=== PATIENT | female | born 1940 | race Caucasian/White ===

== ENCOUNTER 2017-12-12 17:05 | Inpatient (IN) | payer MEDICARE, OTHER ==
[2017-12-12] MEDS ORDERED: SODIUM CHLORIDE 0.9% 1,000 ML IV STA ×2 (17:29)
[2017-12-12 17:44] LABS: HCT 40.9 % (34.0-46.0); HGB 13.8 gm/dL (11.4-16.0); MCH 29.8 pg (25.0-35.0); MCHC 33.7 g/dL (31.0-37.0); MCV 88.3 fL (80.0-100.0); RBC 4.63 m/uL (3.80-5.40); RDW 13.1 % (11.5-15.5); WBC 10.6 k/uL (3.8-10.6)
[2017-12-12 17:45] LABS: Basophils % (A) 0 %; Eosinophils # (A) 0.1 k/uL (0-0.7); Eosinophils % (A) 1 %; Lymphocytes # (A) 1.5 k/uL (1.0-4.8); Lymphocytes % (A) 14 %; Mean Platelet Volume 6.5; Monocytes # (A) 0.7 k/uL (0-1.0); Monocytes % (A) 7 %; Neutrophils # (A) 8.1 k/uL (1.3-7.7); Neutrophils % (A) 77 %; Platelet Count 204 k/uL (150-450)
[2017-12-12 17:55] LABS: ALT 14 U/L (9-52); AST 11 U/L (14-36); Albumin 3.5 g/dL (3.5-5.0); Alkaline Phosphatase 85 U/L (38-126); Anion Gap 9 mmol/L; Blood Urea Nitrogen 20 mg/dL (7-17); Calcium 9.6 mg/dL (8.4-10.2); Carbon Dioxide 26 mmol/L (22-30); Chloride 103 mmol/L (98-107); Glucose 120 mg/dL (74-99); Potassium 4.6 mmol/L (3.5-5.1); Sodium 138 mmol/L (137-145); Total Bilirubin 0.8 mg/dL (0.2-1.3); Total Protein 6.1 g/dL (6.3-8.2)
[2017-12-12 18:09] LABS: Creatine Kinase 91 U/L (30-135)
[2017-12-12 18:23] LABS: Troponin I <0.012 ng/mL (0.000-0.034)
[2017-12-12 18:26] LABS: Partial Thromboplastin Time 33.9 sec (22.0-30.0)
--- NOTE | 2017-12-12 18:27 | CT ---
EXAMINATION TYPE: CT brain wo con for TPA DATE OF EXAM: 12/12/2017 COMPARISON: 01/01/2015 HISTORY: Neuro deficits CT DLP: mGycm Automated exposure control for dose reduction was used. FINDINGS: There is hypodensity in the left temporal lobe consistent with encephalomalacia. There is surgical cl ip in the region of left middle cerebral artery. There is left temporal craniotomy defect. There is n o midline shift. There is no sign of intracranial hemorrhage. 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 NO ACUTE I NTRACRANIAL ABNORMALITY. SPHENOID SINUSITIS NOTED. CEREBRAL ATROPHY. OLD SMALL RIGHT POSTERIOR FRONTA L LOBE CORTICAL INFARCT.
--- NOTE | 2017-12-12 18:56 | CT ---
EXAMINATION TYPE: CT angio head neck DATE OF EXAM: 12/12/2017 HISTORY: Unresponsive COMPARISON: None CT DLP: mGycm. Automated Exposure Control for Dose Reduction was Utilized. TECHNIQUE: CTA scan of the neck is performed , patient injected with 100 mL of , Isovue axial images are obtained, coronal and sagittal reformatted images are reviewed. Three-D reconstructed images are created on an independent workstation and reviewed. FINDINGS: There is normal branching pattern of the great vessels. There is arterial flow in the vertebral arter ies. Left vertebral artery is small. Basilar artery fills from the right side. There is some plaque f ormation at the right carotid artery bifurcation and close to 50% stenosis in the proximal right inte rnal carotid artery. There is mild plaque formation on the left side and less than 15% narrowing of t he proximal left internal carotid artery. There is no evidence of carotid or vertebral artery aneurysm or dissection. There is a large surgical clip in the mid left middle cerebral artery. There is contrast opacificatio n of the anterior and posterior cerebral arteries. There is arterial flow in the vertebrobasilar rosalie ry system. There is arterial flow in both middle cerebral arteries. There is normal contrast opacific ation of the venous sinuses. I see no evidence of sinus thrombosis. There is no evidence of intracran ial aneurysm or neovascularity. IMPRESSION: There is some plaque formation and close to 50% stenosis in the proximal right internal carotid arter y. Minimal plaque at the origin left internal carotid artery. Previous intracranial surgery. No evidence of intracranial aneurysm. No significant stenosis seen.
--- NOTE | 2017-12-12 18:57 | XR ---
EXAMINATION TYPE: XR chest 2V DATE OF EXAM: 12/12/2017 COMPARISON: 12/25/1714 HISTORY: Weakness TECHNIQUE: Frontal and lateral views of the chest are obtained. FINDINGS: There is no heart failure nor confluent pneumonic infiltrate. Thoracic aorta is atheromato us. Costophrenic angles are clear. There are old calcified granulomata. Bones are osteopenic. IMPRESSION: No active cardiopulmonary disease. No change.
[2017-12-12] MEDS ORDERED: IBUPROFEN 600 MG TAB PO STA (19:11)
[2017-12-12] MEDS ORDERED: ACETAMINOPHEN TAB 500 MG TAB PO STA (19:11)
--- NOTE | 2017-12-12 19:11 | ED ---
Neuro HPI - General Chief Complaint: Neuro Symptoms/Deficit Stated Complaint: Poss Stroke Time Seen by Provider: 12/12/17 17:21 Source: family, RN notes reviewed, old records reviewed Mode of arrival: EMS Limitations: language barrier, altered mental status, physical limitation - History of Present Illness Is the patient presenting with stroke symptoms?: Yes Last Known Well Date: 12/11/17 -: days(s) (1) Location: speech, right face, dysarthria, right arm, altered History of same: Yes Place: home Quality: weak, constant Improves With: none On Anticoagulants: Yes Context: sudden onset Associated Symptoms: confusion, fever/chills - Related Data Home Medications: Home Medications Medication Instructions Recorded Confirmed Gabapentin [Neurontin] 300 mg PO DAILY 04/20/14 12/12/17 Keppra(Levetiracetam)100mg/Ml Soln 500 mg PO BID 04/20/14 12/12/17 Labetalol HCl [Trandate] 200 mg PO DAILY 04/20/14 12/12/17 busPIRone HCl [Buspar] 5 mg PO BID 01/01/15 12/12/17 hydrALAZINE HCL [Apresoline] 50 mg PO DAILY 01/02/15 12/12/17 traMADol HCL [Ultram] 50 mg PO DAILY PRN 12/12/17 12/12/17 Previous Rx's Medication Instructions Recorded Diazepam [Valium] 2 mg PO Q6H PRN #20 tab 01/04/15 Allergies/Adverse Reactions: Allergies Allergy/AdvReac Type Severity Reaction Status Date / Time No Known Allergies Allergy Verified 12/12/17 17:46 Review of Systems ROS Statement: Those systems with pertinent positive or pertinent negative responses have been documented in the HPI. ROS Other: All systems not noted in ROS Statement are negative. General Exam Limitations: language barrier, physical limitation Stroke MDM - Lab Data Result diagrams: 12/12/17 17:15 12/12/17 17:15 Lab Results 12/12/17 12/12/17 12/12/17 Range/Units 17:15 17:15 17:15 WBC 10.6 (3.8-10.6) k/uL RBC 4.63 (3.80-5.40) m/uL Hgb 13.8 (11.4-16.0) gm/dL Hct 40.9 (34.0-46.0) % MCV 88.3 (80.0-100.0) fL MCH 29.8 (25.0-35.0) pg MCHC 33.7 (31.0-37.0) g/dL RDW 13.1 (11.5-15.5) % Plt Count 204 (150-450) k/uL Neutrophils % 77 % Lymphocytes % 14 % Monocytes % 7 % Eosinophils % 1 % Basophils % 0 % Neutrophils # 8.1 H (1.3-7.7) k/uL Lymphocytes # 1.5 (1.0-4.8) k/uL Monocytes # 0.7 (0-1.0) k/uL Eosinophils # 0.1 (0-0.7) k/uL Basophils # 0.0 (0-0.2) k/uL PT (9.0-12.0) sec INR (<1.2) APTT (22.0-30.0) sec Sodium 138 (137-145) mmol/L Potassium 4.6 (3.5-5.1) mmol/L Chloride 103 (98-107) mmol/L Carbon Dioxide 26 (22-30) mmol/L Anion Gap 9 mmol/L BUN 20 H (7-17) mg/dL Creatinine 0.63 (0.52-1.04) mg/dL Est GFR (CKD-EPI)AfAm >90 (>60 ml/min/1.73 sqM) Est GFR (CKD-EPI)NonAf 87 (>60 ml/min/1.73 sqM) Glucose 120 H (74-99) mg/dL Calcium 9.6 (8.4-10.2) mg/dL Total Bilirubin 0.8 (0.2-1.3) mg/dL AST 11 L (14-36) U/L ALT 14 (9-52) U/L Alkaline Phosphatase 85 (38-126) U/L Total Creatine Kinase 91 (30-135) U/L CK-MB (CK-2) 1.0 (0.0-2.4) ng/mL CK-MB (CK-2) Rel Index 1.1 Troponin I <0.012 (0.000-0.034) ng/mL Total Protein 6.1 L (6.3-8.2) g/dL Albumin 3.5 (3.5-5.0) g/dL Urine Color Urine Appearance (Clear) Urine pH (5.0-8.0) Ur Specific [place] (1.001-1.035) Urine Protein (Negative) Urine Glucose (UA) (Negative) Urine Ketones (Negative) Urine Blood (Negative) Urine Nitrite (Negative) Urine Bilirubin (Negative) Urine Urobilinogen (<2.0) mg/dL Ur Leukocyte Esterase (Negative) Urine RBC (0-5) /hpf Urine WBC (0-5) /hpf Ur Squamous Epith Cells (0-4) /hpf Urine Bacteria (None) /hpf Urine Mucus (None) /hpf 12/12/17 12/12/17 Range/Units 17:15 19:53 WBC (3.8-10.6) k/uL RBC (3.80-5.40) m/uL Hgb (11.4-16.0) gm/dL Hct (34.0-46.0) % MCV (80.0-100.0) fL MCH (25.0-35.0) pg MCHC (31.0-37.0) g/dL RDW (11.5-15.5) % Plt Count (150-450) k/uL Neutrophils % % Lymphocytes % % Monocytes % % Eosinophils % % Basophils % % Neutrophils # (1.3-7.7) k/uL Lymphocytes # (1.0-4.8) k/uL Monocytes # (0-1.0) k/uL Eosinophils # (0-0.7) k/uL Basophils # (0-0.2) k/uL PT 10.0 (9.0-12.0) sec INR 1.0 (<1.2) APTT 33.9 H (22.0-30.0) sec Sodium (137-145) mmol/L Potassium (3.5-5.1) mmol/L Chloride (98-107) mmol/L Carbon Dioxide (22-30) mmol/L Anion Gap mmol/L BUN (7-17) mg/dL Creatinine (0.52-1.04) mg/dL Est GFR (CKD-EPI)AfAm (>60 ml/min/1.73 sqM) Est GFR (CKD-EPI)NonAf (>60 ml/min/1.73 sqM) Glucose (74-99) mg/dL Calcium (8.4-10.2) mg/dL Total Bilirubin (0.2-1.3) mg/dL AST (14-36) U/L ALT (9-52) U/L Alkaline Phosphatase (38-126) U/L Total Creatine Kinase (30-135) U/L CK-MB (CK-2) (0.0-2.4) ng/mL CK-MB (CK-2) Rel Index Troponin I (0.000-0.034) ng/mL Total Protein (6.3-8.2) g/dL Albumin (3.5-5.0) g/dL Urine Color Yellow Urine Appearance Clear (Clear) Urine pH 6.5 (5.0-8.0) Ur Specific [place] >1.050 H (1.001-1.035) Urine Protein Negative (Negative) Urine Glucose (UA) Negative (Negative) Urine Ketones Negative (Negative) Urine Blood Trace H (Negative) Urine Nitrite Negative (Negative) Urine Bilirubin Negative (Negative) Urine Urobilinogen <2.0 (<2.0) mg/dL Ur Leukocyte Esterase Moderate H (Negative) Urine RBC 4 (0-5) /hpf Urine WBC 19 H (0-5) /hpf Ur Squamous Epith Cells 8 H (0-4) /hpf Urine Bacteria Rare H (None) /hpf Urine Mucus Rare H (None) /hpf - Thrombolytic Inclusion/Exclusion Thrombolytic Exclusion Criteria: Symptom Onset > 3 Hours - Medical Decision Making 77 female the ER for evaluation, patient presents today for evaluation regards to neurological complaint, worsening CVA with UTI. Patient to be admitted and placed on antibiotics, continued current therapy that she is on for CVA and evaluation by neurology - Radiology Data Radiology results: report reviewed (CT brain CTA had not shows worsening CVA, chest x-rays negative), image reviewed - EKG Data -: EKG Interpreted by Me (EKG shows sinus rhythm rate of 86, IL 234, QRS 146, QTc 466) EKG shows normal: sinus rhythm Past Medical History Past Medical History: CVA/TIA, Hyperlipidemia, Hypertension, Sleep Apnea/CPAP/ BIPAP Additional Past Medical History / Comment(s): brain aneurysm, renal aneurysm, peg tube for difficulty swallowing skull surgery, psoriases, sleep apnes but would'nt use cpap machine,since stroke 8-12-14 not ambulatory, was rt side dominate but HAD learned to eat with lt hand, unable to write and has'nt read since stroke. speech garbled if trying to make a sentence few single words come out ok. was recent cat scratch on lt arm.UNABLE TO OBTAIN INFO FOR DEPRESSION RISK SCREEN FROM PT. History of Any Multi-Drug Resistant Organisms: MRSA Date of last positivie culture/infection: 2013 MDRO Source:: blood Past Surgical History: Adenoidectomy, Cholecystectomy, Hysterectomy, Tonsillectomy Additional Past Surgical History / Comment(s): renal bypass d/t renal aneurysm, brain anuerysm-clip/coil in place. Past Anesthesia/Blood Transfusion Reactions: No Reported Reaction Additional Past Anesthesia/Blood Transfusion Reaction / Comment(s): clausterphobia Past Psychological History: No Psychological Hx Reported Smoking Status: Former smoker - Past Family History Father Family Medical History: Cancer Additional Family Medical History / Comment(s): from esophageal cancer age 46 Mother Family Medical History: Congestive Heart Failure (CHF) Additional Family Medical History / Comment(s): at age 78 from chf Course Vital Signs 12/12/17 12/12/17 12/12/17 17:10 18:10 18:17 Temperature 100.0 F H 99.9 F H Pulse Rate 85 80 81 Respiratory 22 20 18 Rate Blood Pressure 132/80 138/60 142/65 O2 Sat by Pulse 97 96 97 Oximetry 12/12/17 12/12/17 19:10 20:10 Temperature 100.2 F H 97.1 F L Pulse Rate 80 81 Respiratory 18 18 Rate Blood Pressure 147/70 120/57 O2 Sat by Pulse 98 97 Oximetry - Reevaluation(s) Reevaluation #1: 12/12/17 20:42 The patient has no improvement in symptoms, no worsening of symptoms Reevaluation #2: 12/12/17 20:42 Medical records reviewed Reevaluation #3: 12/12/17 20:51 Patient is not a TPA candidate secondary to onset of symptoms being sometime last night Disposition Clinical Impression: Cerebrovascular accident, Altered mental status, UTI (urinary tract infection) Disposition: ADMITTED IP TO THIS HOSP Condition: Fair Is patient prescribed a controlled substance at d/c from ED?: No Referrals: Aki Marin MD [Primary Care Provider] - 1-2 days
[2017-12-12] MEDS ORDERED: IBUPROFEN IV 800 MG in SODIUM CHLORIDE 0.9% 250 ML IV ONE (19:34)
[2017-12-12] MEDS ORDERED: ACETAMINOPHEN IV (For NPO) 1,000 MG in EMPTY BAG 1 BAG IVPB STA (19:34)
[2017-12-12 20:13] LABS: Appearance,Urine Clear (Clear); Bacteria,Urine Rare /hpf; Bilirubin,Urine Negative (Negative); Blood,Urine Trace (Negative); Color,Urine Yellow; Glucose,Urine (UA) Negative (Negative); Ketones,Urine Negative (Negative); Leukocyte Esterase,Urine Moderate (Negative); Mucus,Urine Rare /hpf; Nitrite,Urine Negative (Negative); PH, Urine 6.5 (5.0-8.0); Protein,Urine Negative (Negative); RBC,Urine 4 /hpf (0-5); Squamous Epithelial Cell,Urine 8 /hpf (0-4); Urobilinogen,Urine <2.0 mg/dL (<2.0); WBC,Urine 19 /hpf (0-5)
[2017-12-12 20:28] LABS: Specific Gravity,Urine >1.050 (1.001-1.035)
[2017-12-12] MEDS ORDERED: cefTRIAXone 2,000 MG in SODIUM CHLORIDE 0.9% 100 ML IVPB STA (20:38)
[2017-12-12 22:28] VITALS: BMI 39.6
[2017-12-12] MEDS: SODIUM CHLORIDE 0.9% 1,000 ML IV SCH (23:00)
[2017-12-13] MEDS: SODIUM CHLORIDE 0.9% 1,000 ML IV SCH ×2 (06:20→17:11)
[2017-12-13] MEDS ORDERED: DIAZEPAM 2 MG TAB PO PRN (11:59)
[2017-12-13] MEDS ORDERED: hydrALAZINE HCL 25 MG TAB PO SCH (12:00)
[2017-12-13] MEDS ORDERED: LABETALOL 200 MG TAB PO SCH (12:00)
[2017-12-13] MEDS: GABAPENTIN 300 MG CAP PO SCH (13:43)
[2017-12-13 15:48] LABS: Cholesterol 163 mg/dL (<200); HDL Cholesterol 37 mg/dL (40-60); LDL Cholesterol,Calculated 110 mg/dL (0-99); Triglycerides 82 mg/dL (<150)
[2017-12-13] MEDS ORDERED: LACTULOSE 20 GM/30 ML CUP PO PRN (17:15)
[2017-12-13] MEDS ORDERED: CALCIUM CARBONATE 500 MG CHEWABLE PO PRN (17:15)
[2017-12-13] MEDS ORDERED: ALPRAZolam 0.25 MG TAB PO PRN (17:15)
[2017-12-13] MEDS ORDERED: ONDANSETRON 4 MG/2 ML VIAL IVP PRN (17:15)
[2017-12-13] MEDS ORDERED: ACETAMINOPHEN TAB 325 MG TAB PO PRN (17:15)
[2017-12-13] MEDS ORDERED: MELATONIN 3 MG TABLET PO PRN (17:15)
[2017-12-13] MEDS ORDERED: MAGNESIUM HYDROXIDE 2,400 MG/10 ML CUP PO PRN (17:15)
--- NOTE | 2017-12-13 18:32 | P.CNNES ---
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 History is obtained from the chart and from the patient's family who are at bedside. Patient's daughter reports that normally her mother is unable to stand or walk and there is a significant aphasia since the aneurysm surgery. She seems to understand some things and she lives at home with her and numerous caregivers.'s today her noted that she was slipped more lethargic than usual and so this was the reason EMS was called. She also had a fever. In the emergency room she had a CAT scan of the brain which showed a large old left MCA infarct as well as some sphenoid sinusitis cerebral atrophy and old small right frontal lobe infarct. She also had a CT angiogram which showed about 50% stenosis in the right ICA Review of Systems ROS unobtainable: due to mental status Past Medical History Past Medical History: CVA/TIA, Hyperlipidemia, Hypertension, Sleep Apnea/CPAP/ BIPAP Additional Past Medical History / Comment(s): brain aneurysm, renal aneurysm, skull surgery, psoriases, sleep apnes but would'nt use cpap machine,since stroke 10-17-13 not ambulatory, was rt side dominate but HAD learned to eat with lt hand, unable to write and has'nt read since stroke. speech garbled if trying to make a sentence few single words come out ok. History of Any Multi-Drug Resistant Organisms: MRSA Date of last positivie culture/infection: 2013 MDRO Source:: blood Past Surgical History: Adenoidectomy, Cholecystectomy, Hysterectomy, Tonsillectomy Additional Past Surgical History / Comment(s): renal bypass d/t renal aneurysm, brain anuerysm skull surgery-clip/coil in place. Past Anesthesia/Blood Transfusion Reactions: No Reported Reaction Additional Past Anesthesia/Blood Transfusion Reaction / Comment(s): clausterphobia Past Psychological History: No Psychological Hx Reported Smoking Status: Former smoker Past Alcohol Use History: None Reported Additional Past Alcohol Use History / Comment(s): atarted smoking age 19 smoked < 1 ppd, quit 2006 Past Drug Use History: None Reported - Past Family History Father Family Medical History: Cancer Additional Family Medical History / Comment(s): from esophageal cancer age 46 Mother Family Medical History: Congestive Heart Failure (CHF) Additional Family Medical History / Comment(s): at age 78 from chf Medications and Allergies Home Medications Medication Instructions Recorded Confirmed Type Gabapentin [Neurontin] 300 mg PO DAILY 04/20/14 12/12/17 History Keppra(Levetiracetam)100mg/Ml Soln 500 mg PO BID 04/20/14 12/12/17 History Labetalol HCl [Trandate] 200 mg PO DAILY 04/20/14 12/12/17 History busPIRone HCl [Buspar] 5 mg PO BID 01/01/15 12/12/17 History hydrALAZINE HCL [Apresoline] 25 mg PO DAILY 01/02/15 12/12/17 History Diazepam [Valium] 2 mg PO Q6H PRN #20 tab 01/04/15 12/12/17 Rx Allergies Allergy/AdvReac Type Severity Reaction Status Date / Time No Known Allergies Allergy Verified 12/12/17 17:46 Physical Examination - Vital Signs Vital Signs: Vital Signs Temp Pulse Pulse Resp BP BP Pulse Ox 12/13/17 16:00 97.3 F L 73 16 120/70 96 12/13/17 12:00 97.6 F 67 18 124/73 97 12/13/17 08:00 97.5 F L 64 16 123/74 98 12/13/17 04:00 97.1 F L 67 18 93/53 98 12/12/17 23:39 97.9 F 67 18 122/68 94 L 12/12/17 22:45 18 12/12/17 21:10 98.5 F 85 16 108/55 94 L 12/12/17 21:05 98.2 F 70 16 116/76 97 12/12/17 20:10 97.1 F L 81 18 120/57 97 12/12/17 19:10 100.2 F H 80 18 147/70 98 12/12/17 18:17 99.9 F H 81 18 142/65 97 Intake and Output 12/13/17 12/13/17 12/13/17 06:59 14:59 22:59 Intake Total 700 240 100 Balance 700 240 100 Intake: IV 700 Sodium Chloride 0.9% 1, 700 000 ml @ 100 mls/hr IV . Q10H [facility] Rx#:[id number] Oral 240 100 Other: Voiding Method Diaper Diaper Diaper # Voids 2 1 Weight 90 kg - EENT EENT: PERRL, hearing intact, vision intact - Respiratory Respiratory: lungs clear - Cardiovascular Cardiovascular: regular rate - Neurologic Neurologic examination: Mental status: She was awake she was alert and she said a few monosyllable words and she recognized her daughters and her . She did have significant expressive aphasia X Cranial nerve examination pupils were 2 mm and equal was no ptosis no nystagmus no facial asymmetry next Motor examination: She had a dense right hemiplegia Sensory examination was difficult to test Results - Laboratory Findings CBC and BMP: 12/12/17 17:15 12/12/17 17:15 Abnormal Lab Findings: Abnormal Labs 12/12/17 12/12/17 12/12/17 17:15 17:15 17:15 Neutrophils # 8.1 H APTT 33.9 H BUN 20 H Glucose 120 H AST 11 L Total Protein 6.1 L LDL Cholesterol, Calc HDL Cholesterol Ur Specific [place] Urine Blood Ur Leukocyte Esterase Urine WBC Ur Squamous Epith Cells Urine Bacteria Urine Mucus 12/12/17 12/12/17 17:15 19:53 Neutrophils # APTT BUN Glucose AST Total Protein LDL Cholesterol, Calc 110 H HDL Cholesterol 37 L Ur Specific [place] >1.050 H Urine Blood Trace H Ur Leukocyte Esterase Moderate H Urine WBC 19 H Ur Squamous Epith Cells 8 H Urine Bacteria Rare H Urine Mucus Rare H Assessment and Plan (1) History of cerebral aneurysm repair Current Visit: Yes Status: Chronic SNOMED Code(s): 239031537 (2) 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 The patient is currently alert and almost back to her baseline according to her family. His been admitted with UTI which is likely caused her encephalopathy and altered mental status. She is currently doing much better. There is no indication of a new infarct. Recommend check Keppra level, and because of history of seizure disorder we will also do an EEG. Also we'll check an echocardiogram
--- NOTE | 2017-12-13 18:47 | HP ---
HISTORY AND PHYSICAL DATE OF ADMISSION: 12/12/2017 DATE OF SERVICE: 12/13/2017 PRESENTING COMPLAINT: Slurred speech. HISTORY OF PRESENTING COMPLAINT: This is a 77-year-old patient who follows with visiting physician Dr. Marin. History is obtained from the daughter at the bedside. Chronic stable medical conditions include hypertension, hyperlipidemia, chronic left subdural cerebral hematoma. The patient has had a prior stroke with baseline weakness of the right arm and right leg. The patient has gotten use to eating with the left arm and can say a few words. Patient yesterday was noted to become more lethargic and less responsive. She presented to the ER. CT scan of the brain in the ER showed a large old left middle cerebral infarct that has progressed compared to the old one. Patient was not felt to be a candidate for any acute intervention, and the patient was admitted. Compared to yesterday, patient is doing much better, per her daughter, who feels patient is quite nearly back to her baseline. Patient did say hello to me and is moving her left arm. Patient has got a contracture of the right arm. REVIEW OF SYSTEMS: Review of systems cannot be done, as the patient's speech is rather limited. PAST MEDICAL HISTORY: 1. Stroke. 2. Hyperlipidemia. 3. Hypertension. 4. Obstructive sleep apnea. Does not use a CPAP machine. 5. Brain aneurysm. 6. Renal aneurysm. 7. Skull surgery. 8. Psoriasis. 9. Stroke in October 2014. 10.Chronic dysarthria. PAST SURGICAL HISTORY: 1. Adenoidectomy. 2. Cholecystectomy. 3. Hysterectomy. 4. Tonsillectomy. 5. Renal bypass due to renal aneurysm. 6. Brain aneurysm, skull surgery and clip and coil in place. SOCIAL HISTORY: Patient smoked less than a pack a day for 40 years, stopped in 2006. . No alcohol. FAMILY HISTORY: Esophageal cancer. HOME MEDICATIONS: 1. Hydralazine 25 mg a day. 2. BuSpar 5 mg p.o. b.i.d. 3. Labetalol 200 mg p.o. daily. 4. Keppra 500 mg b.i.d. 5. Neurontin 300 mg p.o. daily. 6. Valium 2 mg q.6 p.r.n. ALLERGIES: NONE. PHYSICAL EXAMINATION: VITAL SIGNS ON PRESENTATION: Temperature 100.2, pulse 80, respiration 18, blood pressure 147/70, pulse ox 98% on 2 L. GENERAL APPEARANCE: Well built; BMI 37.5. Lying in bed, tired but awake. EYES: Pupils equal. Conjunctivae normal. HEENT: External appearance of nose and ears normal. Oral cavity normal. NECK: JVD unable to assess. Mass not palpable. RESPIRATORY: Effort normal. LUNGS: Diminished breath sounds. CARDIOVASCULAR: First and second sounds normal. No edema. ABDOMEN: Soft, nontender. Liver and spleen not palpable. LYMPHATIC: No lymph node palpable in neck or axillae. PSYCHIATRY: Patient can only answer some simple questions by saying a word here and there. NEUROLOGICAL: Pupils equal. No facial asymmetry. The patient can speak a few words. Patient has contracture in the right upper extremity and minimal power in the right lower extremity. INVESTIGATIONS: White count 10.6, hemoglobin 13.8, potassium 4.6, BUN 20, creatinine 0.63. LDL is 110. UA positive for leukocyte esterase, WBC. CT scan of the brain showing large old left middle cerebral artery infarct that has progressed compared to the old CT scan. CT angio showing 50% stenosis in the proximal right internal carotid artery, minimal plaque noted in the left internal carotid artery. Chest x-ray film, personally reviewed by me, shows some unfolding of the aorta; expiratory film. EKG tracing, personally reviewed by me, shows left bundle branch block. ASSESSMENT: 1. Acute stroke in the left middle cerebral artery area in a right-handed patient with a prior stroke in the same area, likely ischemic in nature, with some clinical neurological improvement. 2. Obesity; body mass index of 37.5. 3. Chronic right hemiparesis and chronic dysarthria. 4. Hyperlipidemia. 5. Essential hypertension. 6. Obstructive sleep apnea. Does not use a CPAP machine. 7. Acute urinary tract infection, probably cystitis. PLAN: Patient will be put on aspirin. Home medications are resumed. Patient has an interesting mix of antihypertensive, hydralazine and labetalol, both being once a day. Will actually discontinue the labral and hydralazine and use Lopressor. Will also put the patient on lipid-lowering medication. Care was discussed with the daughter at the bedside. Carotid Doppler and 2D echo will be done. PT/OT is consulted. Aspiration precautions will be done. Lovenox for DVT prophylaxis. MMODL / IJN: [id number] /
[2017-12-13] MEDS: CEPHALEXIN 250 MG CAP PO SCH ×2 (18:55→22:27)
[2017-12-13] MEDS: ENOXAPARIN 40 MG/0.4 ML SYRINGE SQ SCH (18:56)
[2017-12-13] MEDS: ATORVASTATIN 40 MG TAB PO SCH (22:26)
[2017-12-13] MEDS: levETIRAcetam ORAL SOLN 500 MG/5 ML CUP PO SCH (22:27)
[2017-12-13] MEDS: busPIRone HCl 5 MG TAB PO SCH (22:27)
[2017-12-13] MEDS: LISINOPRIL-HCTZ 20-12.5 MG 1 EACH TAB PO SCH (22:27)
[2017-12-14] MEDS: SODIUM CHLORIDE 0.9% 1,000 ML IV SCH ×3 (04:01→22:13)
[2017-12-14] MEDS: ENOXAPARIN 40 MG/0.4 ML SYRINGE SQ SCH (08:57)
[2017-12-14] MEDS: levETIRAcetam ORAL SOLN 500 MG/5 ML CUP PO SCH ×2 (09:11→21:21)
[2017-12-14] MEDS: LISINOPRIL-HCTZ 20-12.5 MG 1 EACH TAB PO SCH ×2 (09:11→21:21)
[2017-12-14] MEDS: CEPHALEXIN 250 MG CAP PO SCH ×3 (09:11→21:21)
[2017-12-14] MEDS: busPIRone HCl 5 MG TAB PO SCH ×2 (09:11→21:21)
[2017-12-14] MEDS: GABAPENTIN 300 MG CAP PO SCH (09:11)
--- NOTE | 2017-12-14 12:14 | ECHOF ---
Referral Reason:History of stroke MEASUREMENTS -------- HEIGHT: 152.4 cm WEIGHT: 95.7 kg BP: 112/57 IVSd: 1.1 cm (0.6 - 1.1) LVIDd: 4.1 cm (3.9 - 5.3) LVPWd: 1.0 cm (0.6 - 1.1) IVSs: 1.2 cm LVIDs: 3.0 cm LVPWs: 1.0 cm Ao Diam: 3.0 cm (2.0 - 3.7) LA Diam: 4.0 cm (2.7 - 3.8) MV E Chema: 1.01 m/s MV DecT: 213 ms MV A Chema: 1.05 m/s MV E/A Ratio: 0.97 RAP: 5.00 mmHg RVSP: 11.24 mmHg FINDINGS -------- Sinus rhythm. This was a techncally difficult study with suboptimal views, , Lumason utilized for enhancement of im ages. The left ventricular size is normal. There is mild concentric left ventricular hypertrophy. Overa ll left ventricular systolic function is normal with, an EF between 55 - 60 %. The right ventricle is normal in size. The left atrial size is normal. The right atrial size is normal. 5.0mg OF Lumason UTLIZED: 2 OR MORE WALL SEGMENTS NOT VISUALIZED. The aortic valve was not well visualized. Mild mitral annular calcification present. No mitral regurgitation. Mild tricuspid regurgitation present. There is no evidence of pulmonary hypertension. The right v entricular systolic pressure, as measured by Doppler, is 11.24mmHg. The pulmonic valve was not well visualized. The aortic root size is normal. There is no pericardial effusion. CONCLUSIONS -------- 1. This was a techncally difficult study with suboptimal views, , Lumason utilized for enhancement of images. 2. The left ventricular size is normal. 3. There is mild concentric left ventricular hypertrophy. 4. Overall left ventricular systolic function is normal with, an EF between 55 - 60 %. 5. The right ventricle is normal in size. 6. The left atrial size is normal. 7. The right atrial size is normal. 8. 5.0mg OF Lumason UTLIZED: 2 OR MORE WALL SEGMENTS NOT VISUALIZED. 9. The aortic valve was not well visualized. 10. Mild mitral annular calcification present. 11. No mitral regurgitation. 12. Mild tricuspid regurgitation present. 13. There is no evidence of pulmonary hypertension. 14. The right ventricular systolic pressure, as measured by Doppler, is 11.24mmHg. 15. The pulmonic valve was not well visualized. 16. The aortic root size is normal. 17. There is no pericardial effusion. HEART NURSE: Risa Tovar RDCS
[2017-12-14] MEDS: ATORVASTATIN 40 MG TAB PO SCH (21:21)
--- NOTE | 2017-12-14 21:49 | P.PN ---
Subjective Progress Note Date: 12/14/17 The patient is a 77-year-old woman who was admitted to the hospital with episode of decreased responsiveness. The patient is laying in bed in no acute distress. She does have expressive a aphasia. She didn't communicate that she wanted the TV off. She has a dense right hemiplegia which is unchanged. She had an echocardiogram which showed an ejection fraction of 55-60%. She had a CT angiogram of the brain which showed previous aneurysm surgery with no new aneurysm seen. There was also suggestion of approximately 50% stenosis of right ICA. The patient has a history of renal aneurysms. She is being treated for UTI. The patient has not presented with any signs of a new stroke. Her CAT scan of the brain showed an old small right frontal infarct. There was also evidence of an old large left MCA infarct with encephalomalacia. Objective - Vital Signs Vital signs: Vital Signs Temp 98.7 F 12/14/17 16:00 Pulse 78 12/14/17 16:00 Resp 14 12/14/17 16:00 BP 133/70 12/14/17 16:00 Pulse Ox 94 L 12/14/17 16:00 Intake & Output 12/14/17 12/14/17 12/15/17 06:59 18:59 06:59 Intake Total 1000 Balance 1000 Weight 96 kg Intake: Intake, IV Titration 1000 Amount Sodium Chloride 0.9% 1, 1000 000 ml @ 100 mls/hr IV . Q10H [facility] Rx#:[id number] Other: Voiding Method Diaper Diaper # Voids 1 2 - Constitutional General appearance: Present: obese - EENT ENT: Present: hearing grossly normal - Respiratory Respiratory: bilateral: CTA - Cardiovascular Rhythm: regular - Neurologic Neurologic Comment(s): Neurologic examination: Mental status: The patient was awake she was alert she has expressive aphasia Cranial nerve examination: Pulls were 2 mm and equal reactive Motor examination: Right spastic hemiplegia - Labs CBC & Chem 7: 12/12/17 17:15 12/12/17 17:15 Labs: Microbiology - Last 24 Hours (Table) 12/12/17 19:53 Urine Culture - Preliminary Urine,Catheterized Gram Neg Bacilli Assessment and Plan (1) History of cerebral aneurysm repair Current Visit: Yes Status: Chronic SNOMED Code(s): 592124020 (2) 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 She has been admitted with UTI . There is no evidence of a new stroke. The patient seems to be improving as she is being treated for UTI. The patient also has a history of renal aneurysm. There is no evidence on CTA of a new intracranial aneurysm
--- NOTE | 2017-12-14 21:53 | PN ---
PROGRESS NOTE DATE OF SERVICE: 12/14/17. PRESENTING COMPLAINT: Slurred speech. INTERVAL HISTORY: This is a patient who presented with acute stroke. Doing much better. The patient's daughter and another daughter and are present. Patient's speech is back to baseline. The patient is far more awake than yesterday. Answering questions. REVIEW OF SYSTEMS: Review of systems cannot be done as patient is really not able to speak well. CURRENT MEDICATIONS: Reviewed. The patient cannot take calcium channel blockers as per previous neurology, but Dr. Dumont will make a final determination. PHYSICAL EXAMINATION: Temperature 98.7, pulse 70, respirations 14, blood pressure 133/70, pulse ox 94 percent on room air. GENERAL APPEARANCE: Lying in bed more awake. EYES: Pupils equal. Conjunctivae normal. HEENT: External appearance of nose and ears normal. Oral cavity normal. NECK: JVD unable to assess. Mass not palpable. RESPIRATORY: Effort normal. Lungs, diminished breath sounds. CARDIOVASCULAR: 1st and 2nd sounds normal. No edema. ABDOMEN: Soft, nontender. Liver and spleen not palpable. NEUROLOGICAL: Speech is slow. Contracture of the right upper extremity. INVESTIGATIONS: No blood work from today. ASSESSMENT: 1. Acute stroke in the left middle cerebral artery in a right-handed patient with a prior stroke in the same area likely ischemic in nature, with the patient nearly reverting back to her baseline. 2. Obesity; BMI 37.5. 3. Chronic right hemiparesis and chronic dysarthria. 4. Hyperlipidemia. 5. Essential hypertension. 6. Obstructive sleep apnea does not use CPAP machine. 7. Acute urinary tract infection, probably cystitis. PLAN: Care was discussed with the family at the bedside. Will let Dr. Dumont decide about the antiplatelet agents. Otherwise, patient should be able to be discharged tomorrow. MMODL / IJN: [id number] /
[2017-12-15 05:04] VITALS: TEMP 97.8
[2017-12-15 09:16] VITALS: BP 121/63; PULSE 94; RESP 16
[2017-12-15] MEDS: levETIRAcetam ORAL SOLN 500 MG/5 ML CUP PO SCH (09:22)
[2017-12-15] MEDS: GABAPENTIN 300 MG CAP PO SCH (09:22)
[2017-12-15] MEDS: CEPHALEXIN 250 MG CAP PO SCH ×2 (09:22→17:39)
[2017-12-15] MEDS: busPIRone HCl 5 MG TAB PO SCH (09:22)
[2017-12-15] MEDS: LISINOPRIL-HCTZ 20-12.5 MG 1 EACH TAB PO SCH (09:22)
--- NOTE | 2017-12-15 22:52 | DS ---
DISCHARGE SUMMARY DATE OF ADMISSION: 12/12/2017 DATE OF DISCHARGE: 12/15/2017 FINAL DIAGNOSES: 1. Acute metabolic encephalopathy from urinary tract infection. 2. There is no stroke per Neurology. 3. Obesity; body mass index 37.5. 4. Chronic right hemipareses and chronic dysarthria. 5. Hyperlipidemia. 6. Essential hypertension. 7. Obstructive sleep apnea. Does not use CPAP machine. 8. Acute urinary tract infection from cystitis from Klebsiella pneumoniae. HOSPITAL COURSE: This patient presented with altered mental status. She was seen by Neurology, who felt the patient had acute metabolic encephalopathy from UTI that resolved. CT scan showed evidence of old stroke and some progression. Patient was back to her baseline. Urine culture did grow Klebsiella pneumoniae. Two-D echocardiogram did not report any thrombus. CT angio of the brain did not show any critical stenosis of the neck. Consultation was from Dr. Mack Moses of Neurology. Today I discussed with the patient's and did discuss the findings of Dr. Vianney Moses from Neurology. PHYSICAL EXAMINATION: Temperature 97.8, pulse 83, respiration 20, blood pressure 121/63, pulse ox 95% on room air. She has chronic right-sided weakness, including contracture of the right arm. The patient at baseline can only speak a few words. DISCHARGE MEDICATIONS: 1. Neurontin 300 mg p.o. daily. 2. Keppra 500 mg p.o. b.i.d. 3. Buspirone 5 mg b.i.d. 4. Valium 2 mg q.6 p.r.n. 5. Keflex 250 mg t.i.d.; 9 capsules. 6. Zestoretic /12.5 one tablet b.i.d. Discontinued medications were Trandate and hydralazine. Follow up with Dr. Mack Moses as needed. Follow up with Visiting Physician Dr. Marin in one week. The patient has private home care. MMODL / IJN: [id number] /
== END 2017-12-15 19:00 | disposition home health service (06) | DRG 689 ==
LOC: EC 17:05 → 6SEL 20:41
PROVIDERS: ADMIT Hospitalist; ATTEND Hospitalist
DX: N30.90 Cystitis, unspecified without hematuria (principal); G93.41 Metabolic encephalopathy; I69.151 Hemiplegia and hemiparesis following nontraumatic intracerebral hemorrhage affecting right dominant side; E66.9 Obesity, unspecified; E78.5 Hyperlipidemia, unspecified; G47.33 Obstructive sleep apnea (adult) (pediatric); Z99.89 Dependence on other enabling machines and devices; I10 Essential (primary) hypertension; J32.3 Chronic sphenoidal sinusitis; Z68.37 Body mass index [BMI] 37.0-37.9, adult; Z79.899 Other long term (current) drug therapy; Z80.0 Family history of malignant neoplasm of digestive organs; Z82.49 Family history of ischemic heart disease and other diseases of the circulatory system; Z86.79 Personal history of other diseases of the circulatory system; Z87.891 Personal history of nicotine dependence; Z90.710 Acquired absence of both cervix and uterus; I69.120 Aphasia following nontraumatic intracerebral hemorrhage; Z86.14 Personal history of Methicillin resistant Staphylococcus aureus infection; Z90.49 Acquired absence of other specified parts of digestive tract; B96.1 Klebsiella pneumoniae [K. pneumoniae] as the cause of diseases classified elsewhere; I69.122 Dysarthria following nontraumatic intracerebral hemorrhage
CPT/HCPCS: 36415; 51701; 70450; 70496; 70498; 71046; 80053; 80061; 80177; 81001; 82550; 82553; 84484; 85025; 85610; 85730; 87077; 87086; 87186; 93005; 93306; 95819; 96361; 96365; 96367; 96368; 99285

== ENCOUNTER 2021-05-02 14:44 | Observation (INO) | payer MEDICARE ==
[2021-05-02] MEDS ORDERED: SODIUM CHLORIDE 0.9% 500 ML 500 ML IV STA (15:25)
[2021-05-02] MEDS ORDERED: GENTAMICIN IVPB SCH (15:30)
[2021-05-02] MEDS ORDERED: SODIUM CHLORIDE 0.9% IVPB SCH (15:30)
[2021-05-02 15:41] LABS: Basophils # (A) 0.1 k/uL (0-0.2); Basophils % (A) 1 %; Eosinophils # (A) 0.3 k/uL (0-0.7); Eosinophils % (A) 3 %; HCT 50.3 % (34.0-46.0); HGB 16.2 gm/dL (11.4-16.0); Lymphocytes # (A) 1.9 k/uL (1.0-4.8); Lymphocytes % (A) 24 %; MCH 31.2 pg (25.0-35.0); MCHC 32.3 g/dL (31.0-37.0); MCV 96.7 fL (80.0-100.0); Mean Platelet Volume 7.6; Monocytes # (A) 0.5 k/uL (0-1.0); Monocytes % (A) 7 %; Neutrophils % (A) 63 %; Platelet Count 225 k/uL (150-450); RDW 12.7 % (11.5-15.5); WBC 7.9 k/uL (3.8-10.6)
[2021-05-02] MEDS ORDERED: GENTAMICIN PER PHARMACY MISCELLANE PRN (15:43)
[2021-05-02] MEDS ORDERED: GENTAMICIN 400 MG in SODIUM CHLORIDE 0.9% 100 ML IVPB ONE (16:00)
[2021-05-02] MEDS ORDERED: GENTAMICIN 80 MG/2 ML (MDV) VIAL ONE (16:15)
[2021-05-02] MEDS ORDERED: SODIUM CHLORIDE 0.9% 100 ML BAG IV ONE (16:15)
--- NOTE | 2021-05-02 16:20 | ED ---
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 Urine cultures revealed a resistant Pseudomonas as the culprit of her uric UTI. She was instructed to come to the emergency department for IV antibiotics. No new symptoms per family members who are present. She does live at home with them. Her last 2 months she does get more aggressive, is refusing eating. However she did seem to be somewhat improving over the last few days. Denies any worsening fevers, chills, abdominal pain, nausea, vomiting. Denies any chest pain. No other acute complaints at this time. - Related Data Home Medications Medication Instructions Recorded Confirmed Gabapentin [Neurontin] 300 mg PO HS 04/20/14 05/02/21 Albuterol Nebulized [Ventolin 2.5 mg INHALATION RT-QID PRN 04/28/21 05/02/21 Nebulized] Betamethasone Dipropionate 1 applic TOPICAL DAILY PRN 04/28/21 05/02/21 [Betamethasone Dipropionate 0.05%] Cholecalciferol [Vitamin D3 (25 50 mcg PO DAILY 04/28/21 05/02/21 Mcg = 1000 Iu)] Nystatin [Nystop] 1 applic TOPICAL BID PRN 04/28/21 05/02/21 Tacrolimus 0.03% Cream 1 applic TOPICAL DAILY PRN 04/28/21 05/02/21 Fluconazole [Diflucan] 150 mg PO DAILY 05/02/21 05/02/21 Previous Rx's Medication Instructions Recorded Cephalexin [Keflex] 500 mg PO Q12HR 1 Days #2 cap 04/28/21 Allergies Allergy/AdvReac Type Severity Reaction Status Date / Time No Known Allergies Allergy Verified 05/02/21 16:43 Review of Systems ROS Statement: Those systems with pertinent positive or pertinent negative responses have been documented in the HPI. ROS Other: All systems not noted in ROS Statement are negative. 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 speech garbled if trying to make a sentence few single words come out ok. History of Any Multi-Drug Resistant Organisms: MRSA Date of last positivie culture/infection: 2013 MDRO Source:: blood Past Surgical History: Adenoidectomy, Cholecystectomy, Hysterectomy, Tonsillectomy Additional Past Surgical History / Comment(s): renal bypass d/t renal aneurysm, brain anuerysm skull surgery-clip/coil in place. Past Anesthesia/Blood Transfusion Reactions: No Reported Reaction Additional Past Anesthesia/Blood Transfusion Reaction / Comment(s): clausterphobia Past Psychological History: No Psychological Hx Reported Smoking Status: Unknown if ever smoked Past Alcohol Use History: None Reported Past Drug Use History: None Reported - Past Family History Father Family Medical History: Cancer Additional Family Medical History / Comment(s): from esophageal cancer age 46 Mother Family Medical History: Congestive Heart Failure (CHF) Additional Family Medical History / Comment(s): at age 78 from chf General Exam - General Exam Comments Initial Comments: General: Appears in no acute distress. HEAD: Normal with no signs of acute head trauma. EYES: PERRLA, EOMI, conjunctiva normal, no discharge. ENT: Hearing grossly intact, normal oropharynx. RESPIRATORY: Clear breath sounds bilaterally. No wheezes, rales, or rhonchi. C/V: Regular rate and rhythm. S1 and S2 auscultated, no edema, peripheral pulses 2+ and intact throughout ABD: Abd is soft, nontender, nondistended EXT: Right-sided paralysis SKIN: No rashes or lesions observed on exposed skin. NEURO: Alert. Oriented to her baseline per family. Right-sided paralysis. Aphasic. All chronic findings from her prior ruptured intracranial aneurysm. Limitations: language barrier, physical limitation Course Vital Signs 05/02/21 05/02/21 14:51 19:03 Temperature 97.7 F Pulse Rate 80 70 Respiratory 18 20 Rate Blood Pressure 149/78 143/76 O2 Sat by Pulse 95 96 Oximetry Medical Decision Making - Medical Decision Making Based on the patient's presentation and physical exam, she is re-presenting for IV antibiotics. I evaluated the patient's urine culture from the which revealed that he grew Pseudomonas which is susceptible only to amikacin, gentamicin, tobramycin. Patient be started on gentamicin at 5 mg/kg daily. We will we obtain basic laboratory studies. Blood cultures will be sent. She'll be given a 500 mL fluid bolus as well as started on maintenance fluids. I disc ussed this with the patient's family and the patient and they were in agreement this plan. Patient will be admitted after laboratory studies. Laboratory studies were relatively unremarkable including a normal lactic acid. I spoke with the admitting physician, Dr. Massey accepted the patient. Patient was therefore admitted in stable condition for IV antibiotics. I consulted infectious disease, Dr. Vyas. - Lab Data Result diagrams: 05/02/21 15:32 05/02/21 16:12 Lab Results 05/02/21 05/02/21 05/02/21 Range/Units 15:32 15:32 16:12 WBC 7.9 (3.8-10.6) k/uL RBC 5.20 (3.80-5.40) m/uL Hgb 16.2 H (11.4-16.0) gm/dL Hct 50.3 H (34.0-46.0) % MCV 96.7 (80.0-100.0) fL MCH 31.2 (25.0-35.0) pg MCHC 32.3 (31.0-37.0) g/dL RDW 12.7 (11.5-15.5) % Plt Count 225 (150-450) k/uL MPV 7.6 Neutrophils % 63 % Lymphocytes % 24 % Monocytes % 7 % Eosinophils % 3 % Basophils % 1 % Neutrophils # 5.0 (1.3-7.7) k/uL Lymphocytes # 1.9 (1.0-4.8) k/uL Monocytes # 0.5 (0-1.0) k/uL Eosinophils # 0.3 (0-0.7) k/uL Basophils # 0.1 (0-0.2) k/uL Sodium 135 L (137-145) mmol/L Potassium 3.9 (3.5-5.1) mmol/L Chloride 101 (98-107) mmol/L Carbon Dioxide 28 (22-30) mmol/L Anion Gap 6 mmol/L BUN 15 (7-17) mg/dL Creatinine 0.54 (0.52-1.04) mg/dL Est GFR (CKD-EPI)AfAm >90 (>60 ml/min/1.73 sqM) Est GFR (CKD-EPI)NonAf 89 (>60 ml/min/1.73 sqM) Glucose 100 H (74-99) mg/dL Plasma Lactic Acid Alberto 1.5 (0.7-2.0) mmol/L Calcium 9.2 (8.4-10.2) mg/dL Total Bilirubin 0.8 (0.2-1.3) mg/dL AST 22 (14-36) U/L ALT 10 (4-34) U/L Alkaline Phosphatase 73 (38-126) U/L Total Protein 6.0 L (6.3-8.2) g/dL Albumin 3.2 L (3.5-5.0) g/dL Disposition Clinical Impression: UTI (urinary tract infection) Disposition: ADMITTED IP TO THIS [facility] Condition: Stable
[2021-05-02 16:38] LABS: ALT 10 U/L (4-34); AST 22 U/L (14-36); African American GFR (CKD) >90 (>60 ml/min/1.73 sqM); Albumin 3.2 g/dL (3.5-5.0); Alkaline Phosphatase 73 U/L (38-126); Anion Gap 6 mmol/L; Blood Urea Nitrogen 15 mg/dL (7-17); Calcium 9.2 mg/dL (8.4-10.2); Carbon Dioxide 28 mmol/L (22-30); Chloride 101 mmol/L (98-107); Glucose 100 mg/dL (74-99); Non-African American GFR(CKD) 89 (>60 ml/min/1.73 sqM); Sodium 135 mmol/L (137-145); Total Bilirubin 0.8 mg/dL (0.2-1.3)
[2021-05-02 16:44] LABS: Potassium 3.9 mmol/L (3.5-5.1)
[2021-05-02] MEDS ORDERED: ACETAMINOPHEN TAB 325 MG TAB PO PRN (16:45)
[2021-05-02] MEDS ORDERED: KETOROLAC 15 MG/ML 1 ML VIAL IVP PRN (16:45)
[2021-05-02] MEDS: SODIUM CHLORIDE 0.9% 1,000 ML IV SCH (17:13)
[2021-05-02] MEDS ORDERED: ALBUTEROL NEBULIZED 2.5 MG/3 ML INHALATION PRN (18:07)
[2021-05-02] MEDS ORDERED: TACROLIMUS 0.03% TOPICAL PRN (18:07)
[2021-05-02] MEDS ORDERED: BETAMETHASONE DIPROPIONATE 0.05% OINTMENT 45 GM TUBE TOPICAL PRN (18:07)
[2021-05-02] MEDS ORDERED: MELATONIN 3 MG TABLET PO PRN (18:08)
[2021-05-02] MEDS ORDERED: LACTULOSE 20 GM/30 ML CUP PO PRN (18:08)
[2021-05-02] MEDS ORDERED: NALOXONE 0.4 MG/ML 1 ML VIAL IV PRN (18:08)
[2021-05-02] MEDS ORDERED: ALPRAZolam 0.25 MG TAB PO PRN (18:08)
[2021-05-02] MEDS ORDERED: CALCIUM CARBONATE 500 MG CHEWABLE PO PRN (18:08)
[2021-05-02] MEDS ORDERED: ONDANSETRON 4 MG/2 ML VIAL IVP PRN (18:08)
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
[2021-05-02] MEDS: GABAPENTIN 300 MG CAP PO SCH (22:13)
[2021-05-03 07:49] LABS: African American GFR (CKD) >90 (>60 ml/min/1.73 sqM); Non-African American GFR(CKD) 87 (>60 ml/min/1.73 sqM)
[2021-05-03] MEDS: SODIUM CHLORIDE 0.9% 1,000 ML IV SCH ×2 (08:50→16:57)
[2021-05-03] MEDS: CHOLECALCIFEROL 25 MCG (1000 IU) TABLET PO SCH (08:52)
[2021-05-03 15:40] LABS: Appearance,Urine Turbid (Clear); Bilirubin,Urine Negative (Negative); Blood,Urine Small (Negative); Color,Urine Yellow; Glucose,Urine (UA) Negative (Negative); Hyaline Casts,Urine 20 /lpf (0-2); Ketones,Urine Negative (Negative); Leukocyte Esterase,Urine Large (Negative); Mucus,Urine Moderate /hpf; Nitrite,Urine Negative (Negative); Protein,Urine 1+ (Negative); RBC,Urine >182 /hpf (0-5); Specific Gravity,Urine 1.017 (1.001-1.035); Urobilinogen,Urine <2.0 mg/dL (<2.0); WBC,Urine >182 /hpf (0-5)
[2021-05-03] MEDS: CEFTOLOZANE/TAZOBACTAM 1.5 GM in SODIUM CHLORIDE 0.9% 100 ML IV SCH (16:57)
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
[2021-05-03] MEDS: GABAPENTIN 300 MG CAP PO SCH (22:41)
[2021-05-04] MEDS: CEFTOLOZANE/TAZOBACTAM 1.5 GM in SODIUM CHLORIDE 0.9% 100 ML IV SCH ×3 (00:52→17:44)
[2021-05-04 07:04] LABS: African American GFR (CKD) >90 (>60 ml/min/1.73 sqM); Non-African American GFR(CKD) 86 (>60 ml/min/1.73 sqM)
[2021-05-04] MEDS: CHOLECALCIFEROL 25 MCG (1000 IU) TABLET PO SCH (08:04)
[2021-05-04] MEDS: SODIUM CHLORIDE 0.9% 1,000 ML IV SCH (08:14)
--- NOTE | 2021-05-04 09:43 | P.CONS ---
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 that has been going on for the last 6 years and the patient also have a history of recurrent urinary tract infection and has been treated with multiple courses of antibiotics in the outpatient setting history provided mostly by the family at the bedside mentioning she usually is mostly agitated did have some dark smelly urine with each episode of a urinary tract infection patient recently did have a UA and a culture in the outpatient setting which was multidrug-resistant Pseudomonas for the patient having advised to go to the hospital for IV antibiotic therapy, patient on arrival to the ER was afebrile patient did have a normal white count with no left shift kidney function has been normal UA was not done patient was started on gentamicin infectious disease was consulted for further management of antibiotic therapy Review of Systems Positive points has been mentioned in HPI complete review could not be obtained because of his underlying mental status Past Medical History Past Medical History: CVA/TIA, Hyperlipidemia, Hypertension, Sleep Apnea/CPAP/BIPAP Additional Past Medical History / Comment(s): brain aneurysm, renal aneurysm, skull surgery, psoriases, sleep apnes but would'nt use cpap machine,since stroke 10-17-13 not ambulatory, was rt side dominate but HAD learned to eat with lt hand, unable to write and has'nt read since stroke. speech garbled if trying to make a sentence few single words come out ok. History of Any Multi-Drug Resistant Organisms: MRSA Year Discovered:: 2013 MDRO Source:: blood Past Surgical History: Adenoidectomy, Cholecystectomy, Hysterectomy, Tonsillectomy Additional Past Surgical History / Comment(s): renal bypass d/t renal aneurysm, brain anuerysm skull surgery-clip/coil in place. Past Anesthesia/Blood Transfusion Reactions: No Reported Reaction Additional Past Anesthesia/Blood Transfusion Reaction / Comm: clausterphobia Past Psychological History: No Psychological Hx Reported Smoking Status: Unknown if ever smoked Past Alcohol Use History: None Reported Past Drug Use History: None Reported - Past Family History Father Family Medical History: Cancer Additional Family Medical History / Comment(s): from esophageal cancer age 46 Mother Family Medical History: Congestive Heart Failure (CHF) Additional Family Medical History / Comment(s): at age 78 from chf Medications and Allergies Home Medications Medication Instructions Recorded Confirmed Type Gabapentin [Neurontin] 300 mg PO HS 04/20/14 05/02/21 History Albuterol Nebulized [Ventolin 2.5 mg INHALATION RT-QID PRN 04/28/21 05/02/21 History Nebulized] Betamethasone Dipropionate 1 applic TOPICAL DAILY PRN 04/28/21 05/02/21 History [Betamethasone Dipropionate 0.05%] Cephalexin [Keflex] 500 mg PO Q12HR 1 Days #2 cap 04/28/21 05/02/21 Rx Cholecalciferol [Vitamin D3 (25 50 mcg PO DAILY 04/28/21 05/02/21 History Mcg = 1000 Iu)] Nystatin [Nystop] 1 applic TOPICAL BID PRN 04/28/21 05/02/21 History Tacrolimus 0.03% Cream 1 applic TOPICAL DAILY PRN 04/28/21 05/02/21 History Fluconazole [Diflucan] 150 mg PO DAILY 05/02/21 05/02/21 History Allergies Allergy/AdvReac Type Severity Reaction Status Date / Time No Known Allergies Allergy Verified 05/02/21 16:43 Physical Exam Vitals: Vital Signs Temp Pulse Pulse Resp BP BP Pulse Ox 05/03/21 11:01 99.1 F 91 20 108/64 95 05/03/21 05:00 98.9 F 84 20 159/77 05/02/21 20:00 86 20 05/02/21 19:40 97.8 F 86 20 143/82 96 05/02/21 19:03 70 20 143/76 96 05/02/21 14:51 97.7 F 80 18 149/78 95 Intake and Output 05/02/21 05/03/21 05/03/21 22:59 06:59 14:59 Intake Total 0 Balance 0 Intake: Oral 0 Other: Voiding Method Diaper Diaper Incontinent Incontinent # Voids 0 3 1 Weight 113.398 kg GENERAL DESCRIPTION: Elderly female lying in bed, no distress. No tachypnea or a ccessory muscle of respiration use. HEENT: Shows Pallor , no scleral icterus. Oral mucous membrane is dry. No pharyngeal erythema or thrush NECK: Trachea central, no thyromegaly. LUNGS: Unlabored breathing. Clear to auscultation anteriorly. No wheeze or crackle. HEART: S1, S2, regular rate and rhythm. No loud murmur ABDOMEN: Soft, no tenderness , guarding or rigidity, no organomegaly EXTREMITIES: No edema of feet. SKIN: No rash, no masses palpable. NEUROLOGICAL: The patient is awake, but nonverbal orientation could not be determined Results CBC & Chem 7: 05/02/21 15:32 05/04/21 06:19 Labs: Abnormal Lab Results - Last 24 Hours (Table) 05/02/21 05/02/21 Range/Units 15:32 16:12 Hgb 16.2 H (11.4-16.0) gm/dL Hct 50.3 H (34.0-46.0) % Sodium 135 L (137-145) mmol/L Glucose 100 H (74-99) mg/dL Total Protein 6.0 L (6.3-8.2) g/dL Albumin 3.2 L (3.5-5.0) g/dL Assessment and Plan (1) UTI (urinary tract infection) Current Visit: Yes Status: Acute Code(s): N39.0 - URINARY TRACT INFECTION, SITE NOT SPECIFIED SNOMED Code(s): 13327765 Plan: Patient being admitted to the hospital with positive urine culture in the ou tpatient setting and concern for asymptomatic urine tract infection unfortunately no UA was done during this admission patient currently do not have any fever or elevated white count. 2we will obtain a straight cath UA for a clean-catch sample. 3if the UA obtained today is positive and the patient do have symptom as per discussion with the family we will start the patient on Zerbaxa with less ne phrotoxicity than gentamicin We will follow on clinical condition and cultures to further adjust medication if needed Thank you for this consultation will follow this patient along with you Time with Patient: Greater than 30
[2021-05-04] MEDS ORDERED: GENTAMICIN 400 MG in SODIUM CHLORIDE 0.9% 100 ML IVPB SCH (16:00)
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
[2021-05-04] MEDS: GABAPENTIN 300 MG CAP PO SCH ×2 (22:00→22:07)
--- NOTE | 2021-05-04 22:40 | P.PN ---
Subjective Progress Note Date: 05/04/21 Principal diagnosis: Multidrug-resistant urinary tract infection Patient is 81 year female with a past medical history significant for intracranial hemorrhage CVA bedbound with a history of recurrent urinary tract infection admitted to the hospital for a outpatient urine culture positive for multidrug-resistant pseudomonas aeruginosa. On today's evaluation that is 05/04/2021, the patient is afebrile, patient is more awake and alert and to her baseline per the family at the bedside no vomiting or diarrhea has been reported patient herself is unable to provide any history Objective - Vital Signs Vital signs: Vital Signs Temp 98.8 F 05/04/21 19:57 Pulse 85 05/04/21 19:57 Resp 16 05/04/21 19:57 BP 135/85 05/04/21 19:57 Pulse Ox 93 L 05/04/21 19:57 Intake & Output 05/04/21 05/04/21 05/05/21 06:59 18:59 06:59 Intake Total 100 Balance 100 Intake: Oral 100 Other: Voiding Method Diaper Diaper Incontinent Incontinent # Voids 3 2 - Exam GENERAL DESCRIPTION: An elderly female lying in bed in no distress RESPIRATORY SYSTEM: Unlabored breathing , decreased breath sounds at bases HEART: S1 S2 regular rate and rhythm , ABDOMEN: Soft , no tenderness EXTREMITIES: No edema feet - Labs CBC & Chem 7: 05/02/21 15:32 05/04/21 06:19 Labs: Microbiology - Last 24 Hours (Table) 05/02/21 15:32 Blood Culture - Preliminary Blood No Growth after 48 hours 05/02/21 15:32 Blood Culture - Preliminary Blood No Growth after 48 hours 05/03/21 15:15 Urine Culture - Final Urine,Voided Assessment and Plan (1) UTI (urinary tract infection) Current Visit: Yes Status: Acute Code(s): N39.0 - URINARY TRACT INFECTION, SITE NOT SPECIFIED SNOMED Code(s): 63701381 Plan: Patient being admitted to the hospital with positive urine culture in the outpatient setting and concern for a symptomatic urine tract infection , UA and this admission was positive and the patient is currently being treated with Zerbaxa while waiting for repeat urine culture finalized to determine her discharge antibiotics, family the bedside questions were answered Time with Patient: Less than 30
[2021-05-05] MEDS: SODIUM CHLORIDE 0.9% 1,000 ML IV SCH (00:10)
[2021-05-05] MEDS: CEFTOLOZANE/TAZOBACTAM 1.5 GM in SODIUM CHLORIDE 0.9% 100 ML IV SCH ×2 (01:15→11:12)
[2021-05-05 07:01] LABS: African American GFR (CKD) >90 (>60 ml/min/1.73 sqM); Non-African American GFR(CKD) 87 (>60 ml/min/1.73 sqM)
[2021-05-05] MEDS: CHOLECALCIFEROL 25 MCG (1000 IU) TABLET PO SCH (09:33)
[2021-05-05 11:34] VITALS: BP 137/84; PULSE 83; RESP 20; TEMP 98.5
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
--- NOTE | 2021-05-12 22:51 | P.PN ---
Subjective Progress Note Date: 05/05/21 Principal diagnosis: Multidrug-resistant urinary tract infection Patient is 81 year female with a past medical history significant for intracranial hemorrhage CVA bedbound with a history of recurrent urinary tract infection admitted to the hospital for a outpatient urine culture positive for multidrug-resistant pseudomonas aeruginosa. On today's evaluation that is 05/05/2021, the patient remains to be afebrile, patient is back to her baseline per the family at the bedside, no vomiting or diarrhea has been reported patient herself is unable to provide any history Objective - Vital Signs Vital signs: Vital Signs Temp 98.5 F 05/05/21 11:06 Pulse 83 05/05/21 11:06 Resp 20 05/05/21 11:06 BP 137/84 05/05/21 11:06 Pulse Ox 95 05/05/21 11:06 Intake & Output 05/04/21 05/05/21 05/05/21 18:59 06:59 18:59 Other: Voiding Method Diaper Diaper Diaper Incontinent Incontinent Incontinent # Voids 2 3 - Exam GENERAL DESCRIPTION: An elderly female lying in bed in no distress RESPIRATORY SYSTEM: Unlabored breathing , decreased breath sounds at bases HEART: S1 S2 regular rate and rhythm , ABDOMEN: Soft , no tenderness EXTREMITIES: No edema feet - Labs CBC & Chem 7: 05/02/21 15:32 05/05/21 05:55 Labs: Microbiology - Last 24 Hours (Table) 05/02/21 15:32 Blood Culture - Preliminary Blood No Growth after 48 hours 05/02/21 15:32 Blood Culture - Preliminary Blood No Growth after 48 hours 05/03/21 15:15 Urine Culture - Final Urine,Voided Assessment and Plan (1) UTI (urinary tract infection) Status: Acute Code(s): N39.0 - URINARY TRACT INFECTION, SITE NOT SPECIFIED SNOMED Code(s): 27677604 Plan: Patient being admitted to the hospital with positive urine culture in the outpatient setting and concern for a symptomatic urine tract infection , UA and this admission was positive however the culture remains to be negative as of today and the patient has received three-day course of Zerbaxa which should be enough for cystitis and the patient clinically did not behave as a pyelonephrit is her deep infection has recommended no antibiotic on discharge with a negative urine culture this admission Time with Patient: Less than 30
== END 2021-05-05 14:06 | disposition home health service (06) ==
LOC: EC 14:44 → INTOOBSV 16:45 → 5NMEDONC 16:45 → UNDODISIN 05-05 14:06
PROVIDERS: ADMIT Hospitalist; ATTEND Hospitalist
DX: N39.0 Urinary tract infection, site not specified (principal); I69.351 Hemiplegia and hemiparesis following cerebral infarction affecting right dominant side; E78.5 Hyperlipidemia, unspecified; R47.01 Aphasia; E88.09 Other disorders of plasma-protein metabolism, not elsewhere classified; F41.9 Anxiety disorder, unspecified; G47.00 Insomnia, unspecified; R53.81 Other malaise; R47.1 Dysarthria and anarthria; G47.33 Obstructive sleep apnea (adult) (pediatric); I10 Essential (primary) hypertension; K59.00 Constipation, unspecified; R32 Unspecified urinary incontinence; Z87.440 Personal history of urinary (tract) infections; Z90.710 Acquired absence of both cervix and uterus; Z74.01 Bed confinement status; Z86.14 Personal history of Methicillin resistant Staphylococcus aureus infection; Z86.79 Personal history of other diseases of the circulatory system; Z82.49 Family history of ischemic heart disease and other diseases of the circulatory system; Z80.0 Family history of malignant neoplasm of digestive organs; Z90.49 Acquired absence of other specified parts of digestive tract
CPT/HCPCS: 99284; 96365; 96366 ×3; 96361 ×4; 96367; 36415; 80053; 82565 ×3; 83605; 85025; 81001; 87040; 80170; 87086; 87077; 87186; G0378 ×4; J1580; J0695 ×3

== ENCOUNTER 2023-08-28 12:27 | Emergency (ER) | payer MEDICARE ==
--- NOTE | 2023-08-28 12:35 | ED ---
General Adult HPI - General Chief complaint: Altered Mental Status Stated complaint: AMS Time Seen by Provider: 08/28/23 12:29 Source: patient, EMS, RN notes reviewed Mode of arrival: EMS Limitations: altered mental status - History of Present Illness Initial comments: Patient is an 83-year-old female present to the emergency department with concerns with change in mental status. Patient is nonverbal. Patient has history of previous stroke. Patient reportedly has had decreased urination and odor. There was family concern for urinary tract infection. Patient reportedly is normally nonverbal. - Related Data Home Medications Medication Instructions Recorded Confirmed Gabapentin [Neurontin] 300 mg PO HS 04/20/14 05/02/21 Albuterol Nebulized [Ventolin 2.5 mg INHALATION RT-QID PRN 04/28/21 05/02/21 Nebulized] Betamethasone Dipropionate 1 applic TOPICAL DAILY PRN 04/28/21 05/02/21 [Betamethasone Dipropionate 0.05%] Cholecalciferol [Vitamin D3 (25 50 mcg PO DAILY 04/28/21 05/02/21 Mcg = 1000 Iu)] Nystatin [Nystop] 1 applic TOPICAL BID PRN 04/28/21 05/02/21 Tacrolimus 0.03% Cream 1 applic TOPICAL DAILY PRN 04/28/21 05/02/21 Previous Rx's Medication Instructions Recorded Nitrofurantoin Monohyd/M-Cryst 100 mg PO Q12HR #20 cap 08/28/23 [Macrobid] Allergies Allergy/AdvReac Type Severity Reaction Status Date / Time No Known Allergies Allergy Verified 08/28/23 12:33 Review of Systems ROS Statement: Those systems with pertinent positive or pertinent negative responses have been documented in the HPI. ROS Other: All systems not noted in ROS Statement are negative. 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 speech garbled if trying to make a sentence few single words come out ok. History of Any Multi-Drug Resistant Organisms: MRSA Date of last positivie culture/infection: 2014 MDRO Source:: blood Past Surgical History: Adenoidectomy, Cholecystectomy, Hysterectomy, Tonsillectomy Additional Past Surgical History / Comment(s): renal bypass d/t renal aneurysm, brain anuerysm skull surgery-clip/coil in place. Past Anesthesia/Blood Transfusion Reactions: No Reported Reaction Additional Past Anesthesia/Blood Transfusion Reaction / Comment(s): cl austerphobia Past Psychological History: No Psychological Hx Reported Smoking Status: Unknown if ever smoked Past Alcohol Use History: None Reported Past Drug Use History: None Reported - Past Family History Father Family Medical History: Cancer Additional Family Medical History / Comment(s): from esophageal cancer age 46 Mother Family Medical History: Congestive Heart Failure (CHF) Additional Family Medical History / Comment(s): at age 78 from chf General Exam Limitations: altered mental status General appearance: alert Head exam: Present: atraumatic Eye exam: Present: normal appearance ENT exam: Present: normal oropharynx Neck exam: Present: normal inspection Respiratory exam: Present: normal lung sounds bilaterally Cardiovascular Exam: Present: irregular rhythm GI/Abdominal exam: Present: soft. Absent: tenderness Extremities exam: Present: other (Right arm contraction. Minimal right leg contraction.) Neurological exam: Present: alert, motor sensory deficit (Right hemiaplasia), other (Nonverbal. Limited ability to follow commands) Psychiatric exam: Present: flat affect Skin exam: Present: normal color Course Vital Signs 08/28/23 08/28/23 12:30 13:42 Temperature 97.1 F L Pulse Rate 90 93 Respiratory 16 18 Rate Blood Pressure 122/98 108/50 O2 Sat by Pulse 96 98 Oximetry EKG Findings - EKG Results: EKG: interpreted by ERMD (Left axis. Septal Q waves with repolarization change. Bundle branch block.) EKG shows: atrial fibrillation Medical Decision Making - Medical Decision Making Was pt. sent in by a medical professional or institution (, PA, GLOBAL CEO, urgent care, hospital, or retirement...) When possible be specific @ -No Did you speak to anyone other than the patient for history (EMS, parent, family, police, friend...)? What history was obtained from this source @ -Family arrives later and states patient has been having decreased appetite and more drowsy. Did you review nursing and triage notes (agree or disagree)? Why? @ -I reviewed and agree with nursing and triage notes Were old charts reviewed (outside hosp., previous admission, EMS record, old EKG, old radiological studies, urgent care reports/EKG's, retirement records)? Report findings @ -No old charts were reviewed Differential Diagnosis (chest pain, altered mental status, abdominal pain women, abdominal pain men, vaginal bleeding, weakness, fever, dyspnea, syncope, headache, dizziness, GI bleed, back pain, seizure, CVA, palpatations, mental health, musculoskeletal)? @ -Differential Weakness: Hypoglycemia, shock, sepsis, hyponatremia, anemia, infection, [place], ETOH, adverse medicine reaction, overdose, stroke, this is not meant to be an all-inclusive list. EKG interpreted by me (3pts min.). @ -As above X-rays interpreted by me (1pt min.). @ -Chest x-ray shows no acute process CT interpreted by me (1pt min.). @ -CT brain shows old infarct U/S interpreted by me (1pt. min.). @ -None done What testing was considered but not performed or refused? (CT, X-rays, U/S, labs)? Why? @ -None What meds were considered but not given or refused? Why? @ -None Did you discuss the management of the patient with other professionals (professionals i.e. , PA, GLOBAL CEO, lab, RT, psych nurse, social media community manager, minesweeping officer, teacher, special officer, trimming caser)? Give summary @ -No Was smoking cessation discussed for >3mins.? @ -No Was critical care preformed (if so, how long)? @ -No Were there social determinants of health that impacted care today? How? (Homelessness, low income, unemployed, alcoholism, drug addiction, transportation, low edu. Level, literacy, decrease access to med. care, nursing home, rehab)? @ -No Was there de-escalation of care discussed even if they declined (Discuss DNR or withdrawal of care, Hospice)? DNR status @ -No What co-morbidities impacted this encounter? (DM, HTN, Smoking, COPD, CAD, Cancer, CVA, ARF, Chemo, Hep., AIDS, mental health diagnosis, sleep apnea, morbid obesity)? @ -None Was patient admitted / discharged? Hospital course, mention meds given and route, prescriptions, significant lab abnormalities, going to OR and other pertinent info. @ -Patient reevaluated and resting comfortably in bed. Family is present. Discussion had with family and family is comfortable with discharge home. Patient will be discharged with close follow-up with primary care physician and return if symptoms worsen. Undiagnosed new problem with uncertain prognosis? @ -No Drug Therapy requiring intensive monitoring for toxicity (Heparin, Nitro, Insulin, Cardizem)? @ -No Were any procedures done? @ -No Diagnosis/symptom? @ -Urinary tract infect Acute, or Chronic, or Acute on Chronic? @ -Acute Uncomplicated (without systemic symptoms) or Complicated (systemic symptoms)? @ -Default Side effects of treatment? @ -No Exacerbation, Progression, or Severe Exacerbation? @ -No Poses a threat to life or bodily function? How? (Chest pain, [place], [place], pneumonia, PE, COPD, DKA, ARF, appy, cholecystitis, CVA, Diverticulitis, Homicidal, Suicidal, threat to staff... and all critical care pts) @ -No - Lab Data Result diagrams: 08/28/23 12:36 08/28/23 12:36 Lab Results 08/28/23 08/28/23 08/28/23 Range/Units 12:36 12:36 12:36 WBC 9.3 (3.8-10.6) k/uL RBC 5.16 (3.80-5.40) m/uL Hgb 15.0 (11.4-16.0) gm/dL Hct 48.7 H (34.0-46.0) % MCV 94.4 (80.0-100.0) fL MCH 29.0 (25.0-35.0) pg MCHC 30.8 L (31.0-37.0) g/dL RDW 13.9 (11.5-15.5) % Plt Count 186 (150-450) k/uL MPV 8.3 Neutrophils % 67 % Lymphocytes % 20 % Monocytes % 9 % Eosinophils % 1 % Basophils % 1 % Neutrophils # 6.2 (1.3-7.7) k/uL Lymphocytes # 1.9 (1.0-4.8) k/uL Monocytes # 0.8 (0-1.0) k/uL Eosinophils # 0.1 (0-0.7) k/uL Basophils # 0.1 (0-0.2) k/uL PT 10.6 (10.0-12.5) sec INR 1.0 (<1.2) APTT 24.5 (22.0-30.0) sec Sodium 137 (137-145) mmol/L Potassium 4.1 (3.5-5.1) mmol/L Chloride 104 (98-107) mmol/L Carbon Dioxide 25 (22-30) mmol/L Anion Gap 8 mmol/L BUN 21 H (7-17) mg/dL Creatinine 0.77 (0.52-1.04) mg/dL Est GFR (CKD-EPI)AfAm 83 (>60 ml/min/1.73 sqM) Est GFR (CKD-EPI)NonAf 72 (>60 ml/min/1.73 sqM) Glucose 121 H (74-99) mg/dL POC Glucose (mg/dL) (70-110) mg/dL POC Glu Technology Manager ID Calcium 10.0 (8.4-10.2) mg/dL Total Bilirubin 0.8 (0.2-1.3) mg/dL AST 15 (14-36) U/L ALT 9 (4-34) U/L Alkaline Phosphatase 83 (38-126) U/L Troponin I (0.000-0.034) ng/mL Total Protein 6.2 L (6.3-8.2) g/dL Albumin 3.7 (3.5-5.0) g/dL Urine Color Urine Appearance (Clear) Urine pH (5.0-8.0) Ur Specific [place] (1.001-1.035) Urine Protein (Negative) Urine Glucose (UA) (Negative) Urine Ketones (Negative) Urine Blood (Negative) Urine Nitrite (Negative) Urine Bilirubin (Negative) Urine Urobilinogen (<2.0) mg/dL Ur Leukocyte Esterase (Negative) Urine RBC (0-5) /hpf Urine WBC (0-5) /hpf Urine WBC Clumps (None) /hpf Urine Bacteria (None) /hpf Urine Mucus (None) /hpf 08/28/23 08/28/23 08/28/23 Range/Units 12:36 12:46 12:57 WBC (3.8-10.6) k/uL RBC (3.80-5.40) m/uL Hgb (11.4-16.0) gm/dL Hct (34.0-46.0) % MCV (80.0-100.0) fL MCH (25.0-35.0) pg MCHC (31.0-37.0) g/dL RDW (11.5-15.5) % Plt Count (150-450) k/uL MPV Neutrophils % % Lymphocytes % % Monocytes % % Eosinophils % % Basophils % % Neutrophils # (1.3-7.7) k/uL Lymphocytes # (1.0-4.8) k/uL Monocytes # (0-1.0) k/uL Eosinophils # (0-0.7) k/uL Basophils # (0-0.2) k/uL PT (10.0-12.5) sec INR (<1.2) APTT (22.0-30.0) sec Sodium (137-145) mmol/L Potassium (3.5-5.1) mmol/L Chloride (98-107) mmol/L Carbon Dioxide (22-30) mmol/L Anion Gap mmol/L BUN (7-17) mg/dL Creatinine (0.52-1.04) mg/dL Est GFR (CKD-EPI)AfAm (>60 ml/min/1.73 sqM) Est GFR (CKD-EPI)NonAf (>60 ml/min/1.73 sqM) Glucose (74-99) mg/dL POC Glucose (mg/dL) 126 H (70-110) mg/dL POC Glu Technology Manager ID June Calcium (8.4-10.2) mg/dL Total Bilirubin (0.2-1.3) mg/dL AST (14-36) U/L ALT (4-34) U/L Alkaline Phosphatase (38-126) U/L Troponin I 0.016 (0.000-0.034) ng/mL Total Protein (6.3-8.2) g/dL Albumin (3.5-5.0) g/dL Urine Color Yellow Urine Appearance Turbid H (Clear) Urine pH 6.0 (5.0-8.0) Ur Specific [place] 1.018 (1.001-1.035) Urine Protein 1+ H (Negative) Urine Glucose (UA) Trace H (Negative) Urine Ketones Negative (Negative) Urine Blood Moderate H (Negative) Urine Nitrite Positive H (Negative) Urine Bilirubin Negative (Negative) Urine Urobilinogen <2.0 (<2.0) mg/dL Ur Leukocyte Esterase Large H (Negative) Urine RBC 9 H (0-5) /hpf Urine WBC >182 H (0-5) /hpf Urine WBC Clumps Few H (None) /hpf Urine Bacteria Rare H (None) /hpf Urine Mucus Rare H (None) /hpf Disposition Clinical Impression: UTI (urinary tract infection) Disposition: HOME SELF-CARE Condition: Stable Instructions (If sedation given, give patient instructions): Urinary Tract Infection in Women (ED) Additional Instructions: Please do follow-up with your primary care physician and beginning of the week. Return for fever, altered mental status, decreased oral intake, worsening or changing symptoms or other concerns. Prescription has been sent to pharmacy. Prescriptions: Nitrofurantoin Monohyd/M-Cryst [Macrobid] 100 mg PO Q12HR #20 cap Is patient prescribed a controlled substance at d/c from ED?: No Referrals: Ismael Johnson MD [Primary Care Provider] - 1-2 days Time of Disposition: 14:00
[2023-08-28 12:54] VITALS: TEMP 97.1
[2023-08-28 12:56] LABS: Basophils # (A) 0.1 k/uL (0-0.2); Basophils % (A) 1 %; Eosinophils # (A) 0.1 k/uL (0-0.7); Eosinophils % (A) 1 %; HCT 48.7 % (34.0-46.0); Lymphocytes # (A) 1.9 k/uL (1.0-4.8); Lymphocytes % (A) 20 %; MCHC 30.8 g/dL (31.0-37.0); MCV 94.4 fL (80.0-100.0); Mean Platelet Volume 8.3; Monocytes # (A) 0.8 k/uL (0-1.0); Monocytes % (A) 9 %; Neutrophils # (A) 6.2 k/uL (1.3-7.7); Neutrophils % (A) 67 %; Platelet Count 186 k/uL (150-450); RBC 5.16 m/uL (3.80-5.40); RDW 13.9 % (11.5-15.5); WBC 9.3 k/uL (3.8-10.6)
[2023-08-28 13:02] LABS: Glucose,Whole Blood 126 mg/dL (70-110)
[2023-08-28 13:10] LABS: Partial Thromboplastin Time 24.5 sec (22.0-30.0); Prothrombin Time 10.6 sec (10.0-12.5)
[2023-08-28 13:30] LABS: ALT 9 U/L (4-34); AST 15 U/L (14-36); African American GFR (CKD) 83 (>60 ml/min/1.73 sqM); Albumin 3.7 g/dL (3.5-5.0); Alkaline Phosphatase 83 U/L (38-126); Anion Gap 8 mmol/L; Blood Urea Nitrogen 21 mg/dL (7-17); Carbon Dioxide 25 mmol/L (22-30); Chloride 104 mmol/L (98-107); Glucose 121 mg/dL (74-99); Non-African American GFR(CKD) 72 (>60 ml/min/1.73 sqM); Potassium 4.1 mmol/L (3.5-5.1); Sodium 137 mmol/L (137-145); Total Bilirubin 0.8 mg/dL (0.2-1.3); Total Protein 6.2 g/dL (6.3-8.2)
[2023-08-28 13:31] LABS: Appearance,Urine Turbid (Clear); Bacteria,Urine Rare /hpf; Bilirubin,Urine Negative (Negative); Blood,Urine Moderate (Negative); Color,Urine Yellow; Glucose,Urine (UA) Trace (Negative); Ketones,Urine Negative (Negative); Leukocyte Esterase,Urine Large (Negative); Mucus,Urine Rare /hpf; Nitrite,Urine Positive (Negative); Protein,Urine 1+ (Negative); RBC,Urine 9 /hpf (0-5); Specific Gravity,Urine 1.018 (1.001-1.035); Urobilinogen,Urine <2.0 mg/dL (<2.0); WBC,Urine >182 /hpf (0-5)
[2023-08-28 13:44] VITALS: BP 108/50; PULSE 93; RESP 18
--- NOTE | 2023-08-28 13:55 | XR ---
EXAMINATION TYPE: XR chest 1V portable DATE OF EXAM: 08/28/2023 COMPARISON: 04/28/2021 INDICATION: Altered mental status TECHNIQUE: Single frontal view of the chest is obtained. FINDINGS: The heart size is normal. The pulmonary vasculature is normal. The lungs are clear. IMPRESSION: 1. No acute pulmonary process.
--- NOTE | 2023-08-28 14:02 | CT ---
EXAMINATION TYPE: CT brain wo con DATE OF EXAM: 08/28/2023 COMPARISON: 04/28/2021 INDICATION: AMS. hx of CVA DLP: 1172.4. mGycm, Automated exposure control for dose reduction was used. CONTRAST: None CT of the brain is performed utilizing 3 mm thick sections through the posterior fossa and 3 mm thick sections through the remaining calvarium. Study is performed within 24 hours of arrival to the hosp ital. No abnormal hyperdensity is present to suggest an acute intracranial hemorrhage. No mass lesion is evident. No acute infarcts are evident. Old left temporal infarct appears to be present. There is extensive lang bcortical and deep white matter hypodensity. This appears better visualized on the current examinatio n. No mass effect is evident. No effacement of sulci or ventricles is evident. Findings are progressi ve but appear to be old. Postsurgical changes are present on the left. Aneurysm repair appears to be present on the left. Ventricles and sulci are prominent for the patient age. Paranasal sinuses and mastoid air cells within the [id number] are clear. IMPRESSION: 1. Progressive chronic appearing periventricular white matter ischemic changes and subcortical whit e matter changes. No acute intracranial process radiographically apparent.
[2023-08-28] MEDS: cefTRIAXone IN SWFI 1,000 MG/10 ML SYRINGE IVP STA (14:09)
== END 2023-08-28 14:36 | disposition home or self-care (01) ==
LOC: EC 12:27
DX: N39.0 Urinary tract infection, site not specified (principal); Z86.73 Personal history of transient ischemic attack (TIA), and cerebral infarction without residual deficits; Z90.49 Acquired absence of other specified parts of digestive tract
CPT/HCPCS: 36415; 93005; 80053; 84484; 85025; 85610; 85730; 81001; 87086; 71045; 70450; 96374; 51702; 99285; J0696

== ENCOUNTER 2023-09-02 14:11 | Inpatient (IN) | payer MEDICARE ==
[2023-09-02] MEDS: IPRATROPIUM-ALBUTEROL 3 ML NEB INHALATION STA (15:44)
[2023-09-02] MEDS: SODIUM CHLORIDE 0.9% 1,000 ML IV SCH (16:24)
[2023-09-02] MEDS: CEFEPIME 2 GM in SODIUM CHLORIDE 0.9% 100 ML IVPB SCH (16:24)
[2023-09-02 17:04] LABS: Basophils # (A) 0.1 k/uL (0-0.2); Basophils % (A) 1 %; Eosinophils # (A) 0.3 k/uL (0-0.7); Eosinophils % (A) 4 %; HCT 46.7 % (34.0-46.0); HGB 14.3 gm/dL (11.4-16.0); Hypochromasia Slight; Lymphocytes # (A) 1.9 k/uL (1.0-4.8); Lymphocytes % (A) 24 %; MCH 29.1 pg (25.0-35.0); MCHC 30.7 g/dL (31.0-37.0); MCV 94.9 fL (80.0-100.0); Mean Platelet Volume 8.9; Monocytes # (A) 0.5 k/uL (0-1.0); Monocytes % (A) 7 %; Neutrophils % (A) 63 %; Platelet Count 231 k/uL (150-450); RBC 4.92 m/uL (3.80-5.40); RDW 13.5 % (11.5-15.5); WBC 7.9 k/uL (3.8-10.6)
[2023-09-02] MEDS ORDERED: NALOXONE 0.4 MG/ML 1 ML VIAL IV PRN (17:06)
[2023-09-02] MEDS ORDERED: ACETAMINOPHEN TAB 325 MG TAB PO PRN (17:06)
--- NOTE | 2023-09-02 17:06 | ED ---
General Adult HPI - General Chief complaint: Urogenital Stated complaint: UTI Time Seen by Provider: 09/02/23 15:07 Source: patient, EMS, RN notes reviewed, old records reviewed Mode of arrival: EMS Limitations: language barrier, altered mental status - History of Present Illness Initial comments: 83 yo female presenting for evaluation of weakness, confusion, and recent diagnosis of drug-resistant urinary tract infection. Patient history is given by the patient's daughter who is at bedside. Patient has history of remote stroke with right-sided weakness. Patient has not had fever. She had had vomiting. She was started on oral antibiotics but urine culture showed Pseudomonas aeruginosa which was resistant to oral antibiotics. Patient sent in for further evaluation and treatment. - Related Data Home Medications Medication Instructions Recorded Confirmed Gabapentin [Neurontin] 300 mg PO HS 04/20/14 05/02/21 Albuterol Nebulized [Ventolin 2.5 mg INHALATION RT-QID PRN 04/28/21 05/02/21 Nebulized] Betamethasone Dipropionate 1 applic TOPICAL DAILY PRN 04/28/21 05/02/21 [Betamethasone Dipropionate 0.05%] Cholecalciferol [Vitamin D3 (25 50 mcg PO DAILY 04/28/21 05/02/21 Mcg = 1000 Iu)] Nystatin [Nystop] 1 applic TOPICAL BID PRN 04/28/21 05/02/21 Tacrolimus 0.03% Cream 1 applic TOPICAL DAILY PRN 04/28/21 05/02/21 Previous Rx's Medication Instructions Recorded Nitrofurantoin Monohyd/M-Cryst 100 mg PO Q12HR #20 cap 08/28/23 [Macrobid] Allergies Allergy/AdvReac Type Severity Reaction Status Date / Time No Known Allergies Allergy Verified 09/02/23 14:35 Review of Systems ROS Statement: Those systems with pertinent positive or pertinent negative responses have been documented in the HPI. ROS Other: All systems not noted in ROS Statement are negative. 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 speech garbled if trying to make a sentence few single words come out ok. History of Any Multi-Drug Resistant Organisms: MRSA Date of last positivie culture/infection: 2013 MDRO Source:: blood Past Surgical History: Adenoidectomy, Cholecystectomy, Hysterectomy, Tonsillectomy Additional Past Surgical History / Comment(s): renal bypass d/t renal aneurysm, brain anuerysm skull surgery-clip/coil in place. Past Anesthesia/Blood Transfusion Reactions: No Reported Reaction Additional Past Anesthesia/Blood Transfusion Reaction / Comment(s): coco link Past Psychological History: No Psychological Hx Reported Smoking Status: Former smoker Past Alcohol Use History: None Reported Past Drug Use History: None Reported - Past Family History Father Family Medical History: Cancer Additional Family Medical History / Comment(s): from esophageal cancer age 46 Mother Family Medical History: Congestive Heart Failure (CHF) Additional Family Medical History / Comment(s): at age 78 from chf General Exam Limitations: language barrier, altered mental status General appearance: alert Head exam: Present: atraumatic, normocephalic Eye exam: Present: normal appearance, PERRL ENT exam: Present: mucous membranes dry Respiratory exam: Present: wheezes Cardiovascular Exam: Present: regular rate, normal rhythm GI/Abdominal exam: Present: soft. Absent: distended, tenderness, guarding Extremities exam: Present: normal inspection, normal capillary refill Neurological exam: Present: alert Psychiatric exam: Present: normal affect, normal mood Skin exam: Present: warm, dry, intact Course Vital Signs 09/02/23 09/02/23 09/02/23 14:20 15:44 15:54 Pulse Rate 83 64 68 Respiratory 20 Rate Blood Pressure 132/110 O2 Sat by Pulse 95 Oximetry Medical Decision Making - Medical Decision Making Was pt. sent in by a medical professional or institution (, PA, MIXING TECHNICIAN, urgent care, hospital, or jail...) When possible be specific @ -[No] Did you speak to anyone other than the patient for history (EMS, parent, family, police, friend...)? What history was obtained from this source @ -[No] Did you review nursing and triage notes (agree or disagree)? Why? @ -[I reviewed and agree with nursing and triage notes] Were old charts reviewed (outside hosp., previous admission, EMS record, old EKG, old radiological studies, urgent care reports/EKG's, jail records)? Report findings @ -[No old charts were reviewed] Differential Weakness: Hypoglycemia, shock, sepsis, hyponatremia, anemia, infection, [place], ETOH, adverse medicine reaction, overdose, stroke, this is not meant to be an all-inclusive list. EKG interpreted by me (3pts min.). @ -[As above] X-rays interpreted by me (1pt min.). @ -[None done] CT interpreted by me (1pt min.). @ -[None done] U/S interpreted by me (1pt. min.). @ -[None done] What testing was considered but not performed or refused? (CT, X-rays, U/S, labs)? Why? @ -[None] What meds were considered but not given or refused? Why? @ -[None] Did you discuss the management of the patient with other professionals (prof essionals i.e. , PA, MIXING TECHNICIAN, lab, RT, psych nurse, social media director, packer fuser, teacher, financial aid officer, skilled nursing case manager)? Give summary @ -[No] Was smoking cessation discussed for >3mins.? @ -[No] Was critical care preformed (if so, how long)? @ -[No] Were there social determinants of health that impacted care today? How? (Homelessness, low income, unemployed, alcoholism, drug addiction, transportation, low edu. Level, literacy, decrease access to med. care, nursing home, rehab)? @ -[No] Was there de-escalation of care discussed even if they declined (Discuss DNR or withdrawal of care, Hospice)? DNR status @ -[No] What co-morbidities impacted this encounter? (DM, HTN, Smoking, COPD, CAD, Cancer, CVA, ARF, Chemo, Hep., AIDS, mental health diagnosis, sleep apnea, morbid obesity)? @ -[Remote history of CVA with residual right-sided weakness, frequent UTI Was patient admitted / discharged? Hospital course, mention meds given and route, prescriptions, significant lab abnormalities, going to OR and other pertinent info. @Patient will be admitted for treatment of Pseudomonas urinary tract infection. Patient patient placed on cefepime. Repeat urinalysis urine culture, blood cultures and laboratory testing is pending. Case discussed with Dr. Massey who will admit. Undiagnosed new problem with uncertain prognosis? @ -[No] Drug Therapy requiring intensive monitoring for toxicity (Heparin, Nitro, Insulin, Cardizem)? @ -[No] Were any procedures done? @ -[No] Diagnosis/symptom? @ -Drug-resistant UTI, Pseudomonas Acute, or Chronic, or Acute on Chronic? @ -Acute Uncomplicated (without systemic symptoms) or Complicated (systemic symptoms)? @ -[default] Side effects of treatment? @ -[No] Exacerbation, Progression, or Severe Exacerbation? @ -[No] Poses a threat to life or bodily function? How? (Chest pain, [place], [place], pneumonia, PE, COPD, DKA, ARF, appy, cholecystitis, CVA, Diverticulitis, Homicidal, Suicidal, threat to staff... and all critical care pts) @Yes, sepsis Disposition Clinical Impression: UTI (urinary tract infection) Disposition: ADMITTED IP TO THIS [facility] Condition: Stable Is patient prescribed a controlled substance at d/c from ED?: No Referrals: Ismael Johnson MD [Primary Care Provider] - 1-2 days Time of Disposition: 17:05
[2023-09-02 17:20] LABS: ALT 10 U/L (4-34); African American GFR (CKD) >90 (>60 ml/min/1.73 sqM); Anion Gap 3 mmol/L; Blood Urea Nitrogen 15 mg/dL (7-17); Carbon Dioxide 31 mmol/L (22-30); Chloride 102 mmol/L (98-107); Glucose 110 mg/dL (74-99); Non-African American GFR(CKD) 88 (>60 ml/min/1.73 sqM); Sodium 136 mmol/L (137-145)
[2023-09-02 17:34] LABS: AST 25 U/L (14-36); Albumin 3.7 g/dL (3.5-5.0); Alkaline Phosphatase 59 U/L (38-126); Potassium 4.4 mmol/L (3.5-5.1); Total Protein 6.4 g/dL (6.3-8.2)
[2023-09-02 17:35] LABS: Total Bilirubin 0.9 mg/dL (0.2-1.3)
[2023-09-02 18:44] LABS: Appearance,Urine Cloudy (Clear); Bacteria,Urine Rare /hpf; Bilirubin,Urine Negative (Negative); Blood,Urine Trace (Negative); Color,Urine Yellow; Glucose,Urine (UA) Negative (Negative); Ketones,Urine Negative (Negative); Leukocyte Esterase,Urine Large (Negative); Mucus,Urine Rare /hpf; Nitrite,Urine Negative (Negative); Protein,Urine Negative (Negative); RBC,Urine 9 /hpf (0-5); Urobilinogen,Urine <2.0 mg/dL (<2.0); WBC,Urine >182 /hpf (0-5)
--- NOTE | 2023-09-02 23:21 | P.HPIM ---
History of Present Illness H&P Date: 09/02/23 Chief Complaint: Abnormal UA with resistant bacteria This is a pleasant 83-year-old patient who follows with visiting physicians. 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 Has home care every day. Lives with her daughter. She is able to speak a few words. Does use a lift and able to feed herself. She is incontinent does use a diaper. 5 days ago patient came to the ER and was treated for UTI with IV antibiotics and sent home. Patient's cultures came back positive for Pseudomonas because of sensitivity patient was brought in to get IV antibiotics. No fever or chills reported. History is obtained by the daughter at the bedside. Review of systems: Could not be done as patient is dysarthric. The patient is able to make herself understood Social history: Has home care. Lives with daughter Mary. Started smoking at the age of 19 smoked less than a pack a day stopped in 2006. No alcohol. Physical examination: VITAL SIGNS: 98.3, 96, 18, 150/117, 96% room air GENERAL: Awake, reclining in bed EYES: Pupils equal. Conjunctiva normal. HEENT: External appearance of nose and ears normal, oral cavity grossly normal. Left scalp anteriorly bone defect NECK: JVD not raised; masses not palpable. HEART: First and second heart sounds are normal; no edema. LUNGS: Respiratory rate normal; clear to auscultation. ABDOMEN: Soft, nontender, liver spleen not palpable, no masses palpable. PSYCH: Appears calm, unable to assessl. MUSCULOSKELETAL:No Clubbing/cyanosis;muscles-grossly intact. Evidence of OA NEUROLOGICAL: Contracture of the right upper extremity. Weak in the right lower extremity. Dysarthric. May say a few words. YMPHATICS: No lymph nodes palpable in the axilla and neck INVESTIGATIONS, reviewed in the clinical context: August 31: White count 7.9 hemoglobin 14.3 platelets 231 sodium 136 potassium 4.4 creatinine 0.53 Urine culture [August 27] Pseudomonas aeruginosa Assessment and plan: -Recurrent UTI with current episode positive for Pseudomonas aeruginosa. With urine culture positive from August 27. From the visit to the ER. IV cefepime -Right hemiparesis with contracture of the right upper extremity from a prior ruptured intracranial aneurysm. 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 Patient able to say a few words -BMI 39 Weight loss measures -DNR -Medical power of branch employment coordinator: Reji Hernandez Care was discussed in detail with daughter at the bedside. Advance care planning [September 02, 2023: Discussed with patient reji Hernandez at the bedside. Patient's overall clinical condition was discussed. It further details daughter wants to hold medical treatment but does want DNR. Questions answered. Time spent about 25 minutes Past Medical History Past Medical History: CVA/TIA, Hyperlipidemia, Hypertension, Sleep Apnea/CPAP/BIPAP Additional Past Medical History / Comment(s): brain aneurysm, renal aneurysm, skull surgery, psoriases, sleep apnes but would'nt use cpap machine,since stroke 10-17-13 not ambulatory, was rt side dominate but HAD learned to eat with lt hand, unable to write and has'nt read since stroke. speech garbled if trying to make a sentence few single words come out ok. History of Any Multi-Drug Resistant Organisms: MRSA Date of last positivie culture/infection: 2013 MDRO Source:: blood Past Surgical History: Adenoidectomy, Cholecystectomy, Hysterectomy, Tonsillectomy Additional Past Surgical History / Comment(s): renal bypass d/t renal aneurysm, brain anuerysm skull surgery-clip/coil in place. Past Anesthesia/Blood Transfusion Reactions: No Reported Reaction Additional Past Anesthesia/Blood Transfusion Reaction / Comment(s): cla usterphobia Past Psychological History: No Psychological Hx Reported Smoking Status: Former smoker Past Alcohol Use History: None Reported Past Drug Use History: None Reported - Past Family History Father Family Medical History: Cancer Additional Family Medical History / Comment(s): from esophageal cancer age 46 Mother Family Medical History: Congestive Heart Failure (CHF) Additional Family Medical History / Comment(s): at age 78 from chf Medications and Allergies Home Medications Medication Instructions Recorded Confirmed Type Betamethasone Valerate [Luxiq 0.1%] 1 applic TOPICAL DAILY 09/02/23 09/02/23 History Cholecalciferol (Vitamin D3) 50 mcg PO DAILY 09/02/23 09/02/23 History [Vitamin D3 (50 Mcg = 2000 Iu)] Ciclopirox Olamine [Loprox 0.77% 1 applic TOPICAL BID 09/02/23 09/02/23 History cream] Fluconazole [Diflucan] 150 mg PO MO 09/02/23 09/02/23 History Gabapentin [Neurontin] 300 mg PO HS 09/02/23 09/02/23 History Hydrocortisone Acetate [Vanicream 1 applic TOPICAL DAILY 09/02/23 09/02/23 History 1% Hc] Mucus Relief Tablet 1 tab PO DAILY 09/02/23 09/02/23 History Mupirocin 2% Oint [Bactroban 2% 1 applic TOPICAL DAILY 09/02/23 09/02/23 History Oint] Nystatin [Nystop] 1 applic TOPICAL BID 09/02/23 09/02/23 History Allergies Allergy/AdvReac Type Severity Reaction Status Date / Time No Known Allergies Allergy Verified 09/02/23 17:24 Physical Exam Vitals: Vital Signs Temp Pulse Resp BP Pulse Ox 09/02/23 21:18 86 18 106/71 94 L 09/02/23 19:17 98.3 F 96 18 150/117 96 09/02/23 15:54 68 09/02/23 15:44 64 09/02/23 14:20 83 20 132/110 95 Intake and Output 09/02/23 09/02/23 09/03/23 14:59 22:59 06:59 Other: Weight 99.79 kg Results CBC & Chem 7: 09/02/23 16:40 09/02/23 16:40 Labs: Abnormal Lab Results - Last 24 Hours (Table) 09/02/23 09/02/23 09/02/23 Range/Units 16:40 16:40 16:40 Hct 46.7 H (34.0-46.0) % MCHC 30.7 L (31.0-37.0) g/dL Sodium 136 L (137-145) mmol/L Carbon Dioxide 31 H (22-30) mmol/L Glucose 110 H (74-99) mg/dL Urine Appearance Cloudy H (Clear) Urine Blood Trace H (Negative) Ur Leukocyte Esterase Large H (Negative) Urine RBC 9 H (0-5) /hpf Urine WBC >182 H (0-5) /hpf Urine WBC Clumps Few H (None) /hpf Urine Bacteria Rare H (None) /hpf Urine Mucus Rare H (None) /hpf
[2023-09-02] MEDS: CLOTRIMAZOLE 1% CREAM 30 GM TUBE TOPICAL SCH (23:55)
[2023-09-02] MEDS: GABAPENTIN 300 MG CAP PO SCH (23:55)
[2023-09-02] MEDS: NYSTATIN 100,000 UNIT/GM POWD 15 GM TOPICAL SCH (23:56)
[2023-09-03] MEDS: CHOLECALCIFEROL 25 MCG (1000 IU) TABLET PO SCH (08:22)
--- NOTE | 2023-09-03 14:30 | P.PN ---
Progress Note - Text Progress Note Date: 09/03/23 Chief Complaint: Abnormal UA with resistant bacteria This is a pleasant 83-year-old patient who follows with visiting physicians. 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 Has home care every day. Lives with her daughter. She is able to speak a few words. Does use a lift and able to feed herself. She is incontinent does use a diaper. 5 days ago patient came to the ER and was treated for UTI with IV antibiotics and sent home. Patient's cultures came back positive for Pseudomonas because of sensitivity patient was brought in to get IV antibiotics. No fever or chills reported. History is obtained by the daughter at the bedside. August 25: Resting in bed. Had all her lunch. On IV cefepime. Has a visitor. Pending input from ID the Active Medications Acetaminophen (Acetaminophen Tab 325 Mg Tab) 650 mg PO Q6HR PRN PRN Reason: Mild Pain or Fever > 100.5 Albuterol/Ipratropium (Ipratropium-Albuterol 3 Ml Neb) 3 ml INHALATION RT-QID [facility] Cholecalciferol (Cholecalciferol 25 Mcg (1000 Iu) Tablet) 50 mcg PO DAILY [facility] Last Admin: 09/03/23 08:22 Dose: 50 mcg Clotrimazole (Clotrimazole 1% Cream 30 Gm Tube) 1 applic TOPICAL BID [facility] Last Admin: 09/03/23 08:23 Dose: 1 applic Gabapentin (Gabapentin 300 Mg Cap) 300 mg PO HS [facility] Last Admin: 09/02/23 23:55 Dose: 300 mg Sodium Chloride (Saline 0.9%) 1,000 mls @ 130 mls/hr IV .Q7H42M [facility] Last Admin: 09/03/23 08:23 Dose: 130 mls/hr Cefepime HCl 2 gm/ Sodium (Chloride) 100 mls @ 25 mls/hr IVPB Q8HR [facility]; Protocol Last Admin: 09/03/23 08:22 Dose: 25 mls/hr Naloxone HCl (Naloxone 0.4 Mg/Ml 1 Ml Vial) 0.2 mg IV Q2M PRN PRN Reason: Opioid Reversal Nystatin (Nystatin 100,000 Unit/Gm Powd 15 Gm) 1 applic TOPICAL BID [facility]; Protocol Last Admin: 09/03/23 08:23 Dose: 1 applic Review of systems: Could not be done as patient is dysarthric. The patient is able to make herself understood Social history: Has home care. Lives with daughter Mary. Started smoking at the age of 19 smoked less than a pack a day stopped in 2006. No alcohol. Physical examination: VITAL SIGNS: 98.5, 46, 18, 136 bradycardia, 92% room air GENERAL: Comfortable EYES: Pupils equal. Conjunctiva normal. HEENT: External appearance of nose and ears normal, oral cavity grossly normal. Left scalp anteriorly bone defect NECK: JVD not raised; masses not palpable. HEART: First and second heart sounds are normal; no edema. LUNGS: Respiratory rate normal; clear to auscultation. ABDOMEN: Soft, nontender, liver spleen not palpable, no masses palpable. PSYCH: Appears calm, unable to assessl. MUSCULOSKELETAL:No Clubbing/cyanosis;muscles-grossly intact. Evidence of OA NEUROLOGICAL: Contracture of the right upper extremity. Weak in the right lower extremity. Dysarthric. May say a few words. INVESTIGATIONS, reviewed in the clinical context: September 01: White count 7.9 hemoglobin 14.3 platelets 231 sodium 136 potassium 4.4 creatinine 0.53 Urine culture [August 27] Pseudomonas aeruginosa Assessment and plan: -Recurrent UTI with current episode positive for Pseudomonas aeruginosa. With urine culture positive from August 27. From the visit to the ER. IV cefepime -Right hemiparesis with contracture of the right upper extremity from a prior ruptured intracranial aneurysm. 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 Patient able to say a few words -BMI 39 Weight loss measures -DNR -Medical power of contract attorney: Reji Hernandez Advance care planning [September 02, 2023: Discussed with patient reji Hernandez at the bedside. Patient's overall clinical condition was discussed. It further details daughter wants to hold medical treatment but does want DNR. Questions answered. Time spent about 25 minutes Continue current treatment plan. 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 speech garbled if trying to make a sentence few single words come out ok. History of Any Multi-Drug Resistant Organisms: MRSA Date of last positivie culture/infection: 2013 MDRO Source:: blood Past Surgical History: Adenoidectomy, Cholecystectomy, Hysterectomy, Tonsillectomy Additional Past Surgical History / Comment(s): renal bypass d/t renal aneurysm, brain anuerysm skull surgery-clip/coil in place. Past Anesthesia/Blood Transfusion Reactions: No Reported Reaction Additional Past Anesthesia/Blood Transfusion Reaction / Comment(s): clausterphobia Past Psychological History: No Psychological Hx Reported Smoking Status: Former smoker Past Alcohol Use History: None Reported Past Drug Use History: None Reported
[2023-09-03] MEDS: IPRATROPIUM-ALBUTEROL 3 ML NEB INHALATION SCH (15:23)
--- NOTE | 2023-09-03 22:43 | P.CONS ---
History of Present Illness - Reason for Consult Consult date: 09/03/23 Urinary tract infection Requesting physician: Ryan Obregon - Chief Complaint Weakness mental status changes x - History of Present Illness Patient is a 83-year-old female with a past medical history significant for hypertension hyperlipidemia CVA TIA brain aneurysm psoriasis patient has been brought into the hospital yesterday afternoon for evaluation of weakness and confusion and recent diagnosis of drug-resistant Pseudomonas urinary tract infection in the outpatient setting with no oral option For which the patient has been brought to the hospital, according to the caregiver at the bedside patient seem to be slightly more lethargic and less responsive than her baseline patient was noticed to have a dark and cloudy urine however no clear history of any fever or any chills no clear history of any vomiting or complaints of abdominal pain no diarrhea on presentation to the hospital the patient was afebrile no fever have recorded subsequently patient was not tachycardic hypotensive or hypoxic patient did have white count of 7.9 creatinine 0.53 urine has been positive with large leukocyte esterase more than 182 WBC last urine culture done in the outpatient setting on 08/28/2023 positive for Pseudomonas that was resistant to Cipro sensitive to cefepime and ceftazidime Review of Systems Positive points has been mentioned in HPI complete review could not be obtained because of his underlying mental status Past Medical History Past Medical History: CVA/TIA, Hyperlipidemia, Hypertension, Sleep Apnea/CPAP/BIPAP Additional Past Medical History / Comment(s): brain aneurysm, renal aneurysm, skull surgery, psoriases, sleep apnes but would'nt use cpap machine,since stroke 10-17-13 not ambulatory, was rt side dominate but HAD learned to eat with lt hand, unable to write and has'nt read since stroke. speech garbled if trying to make a sentence few single words come out ok. History of Any Multi-Drug Resistant Organisms: MRSA Year Discovered:: 2013 MDRO Source:: blood Past Surgical History: Adenoidectomy, Cholecystectomy, Hysterectomy, Tonsillect ashlee Additional Past Surgical History / Comment(s): renal bypass d/t renal aneurysm, brain anuerysm skull surgery-clip/coil in place. Past Anesthesia/Blood Transfusion Reactions: No Reported Reaction Additional Past Anesthesia/Blood Transfusion Reaction / Comm: clausterphobia Past Psychological History: No Psychological Hx Reported Smoking Status: Never smoker Past Alcohol Use History: None Reported Additional Past Alcohol Use History / Comment(s): started smoking age 19 smoked < 1 ppd, quit 2006 Past Drug Use History: None Reported - Past Family History Father Family Medical History: Cancer Additional Family Medical History / Comment(s): from esophageal cancer age 46 Mother Family Medical History: Congestive Heart Failure (CHF) Additional Family Medical History / Comment(s): at age 78 from chf Medications and Allergies Home Medications Medication Instructions Recorded Confirmed Type Betamethasone Valerate [Luxiq 0.1%] 1 applic TOPICAL DAILY 09/02/23 09/02/23 History Cholecalciferol (Vitamin D3) 50 mcg PO DAILY 09/02/23 09/02/23 History [Vitamin D3 (50 Mcg = 2000 Iu)] Ciclopirox Olamine [Loprox 0.77% 1 applic TOPICAL BID 09/02/23 09/02/23 History cream] Fluconazole [Diflucan] 150 mg PO MO 09/02/23 09/02/23 History Gabapentin [Neurontin] 300 mg PO HS 09/02/23 09/02/23 History Hydrocortisone Acetate [Vanicream 1 applic TOPICAL DAILY 09/02/23 09/02/23 History 1% Hc] Mucus Relief Tablet 1 tab PO DAILY 09/02/23 09/02/23 History Mupirocin 2% Oint [Bactroban 2% 1 applic TOPICAL DAILY 09/02/23 09/02/23 History Oint] Nystatin [Nystop] 1 applic TOPICAL BID 09/02/23 09/02/23 History Allergies Allergy/AdvReac Type Severity Reaction Status Date / Time No Known Allergies Allergy Verified 09/02/23 17:24 Physical Exam Vitals: Vital Signs Temp Pulse Pulse Resp BP BP Pulse Ox 09/03/23 07:00 97.9 F 69 18 126/71 92 L 09/03/23 05:35 97.4 F L 72 16 128/75 95 09/03/23 05:01 77 18 120/91 97 09/03/23 00:00 67 20 106/59 95 09/02/23 21:18 86 18 106/71 94 L 09/02/23 19:17 98.3 F 96 18 150/117 96 09/02/23 15:54 68 09/02/23 15:44 64 09/02/23 14:20 83 20 132/110 95 Intake and Output 09/02/23 09/03/23 09/03/23 22:59 06:59 14:59 Output Total 1 Balance -1 Output: Urine 1 Stool 0 Other: Voiding Method External Catheter # Voids 1 Weight 99.79 kg GENERAL DESCRIPTION: Elderly female lying in bed, no distress. No tachypnea or accessory muscle of respiration use. HEENT: Shows Pallor , no scleral icterus. Oral mucous membrane is dry. NECK: Trachea central, no thyromegaly. LUNGS: Unlabored breathing. Clear to auscultation anteriorly. No wheeze or crackle. HEART: S1, S2, regular rate and rhythm. No loud murmur ABDOMEN: Soft, no tenderness , EXTREMITIES: No edema of feet. SKIN: No rash, no masses palpable. NEUROLOGICAL: The patient is awake, but nonverbal orientation could not be determined Results CBC & Chem 7: 09/02/23 16:40 09/02/23 16:40 Labs: Abnormal Lab Results - Last 24 Hours (Table) 09/02/23 09/02/23 09/02/23 Range/Units 16:40 16:40 16:40 Hct 46.7 H (34.0-46.0) % MCHC 30.7 L (31.0-37.0) g/dL Sodium 136 L (137-145) mmol/L Carbon Dioxide 31 H (22-30) mmol/L Glucose 110 H (74-99) mg/dL Urine Appearance Cloudy H (Clear) Urine Blood Trace H (Negative) Ur Leukocyte Esterase Large H (Negative) Urine RBC 9 H (0-5) /hpf Urine WBC >182 H (0-5) /hpf Urine WBC Clumps Few H (None) /hpf Urine Bacteria Rare H (None) /hpf Urine Mucus Rare H (None) /hpf Assessment and Plan (1) Pseudomonas aeruginosa infection Current Visit: Yes Status: Acute Code(s): A49.8 - OTHER BACTERIAL INFECTIONS OF UNSPECIFIED SITE SNOMED Code(s): 35261986 (2) Failure of outpatient treatment Current Visit: Yes Status: Acute Code(s): Z78.9 - OTHER SPECIFIED HEALTH STATUS SNOMED Code(s): 438662373 (3) UTI (urinary tract infection) Current Visit: Yes Status: Acute Code(s): N39.0 - URINARY TRACT INFECTION, SITE NOT SPECIFIED SNOMED Code(s): 49500451 Plan: 1patient presented to hospital with weakness mental status changes did have a dark foul-smelling urine with recent outpatient urine culture positive for Pseudomonas aeruginosa that was resistant to Cipro failing outpatient treatment 2-patient is more behaving as cystitis rather than deep infection with no fever or elevated white count 3-we will consider 3-day course of cefepime while inpatient this has been discussed with admitting physician We will follow on clinical condition and cultures to further adjust medication if needed Thank you for this consultation we will follow the patient along with you Dictation was produced using [employer] dictation software. please excuse any grammatical, word or spelling errors. Time with Patient: Greater than 30
--- NOTE | 2023-09-04 13:15 | P.PN ---
Progress Note - Text Progress Note Date: 09/04/23 Chief Complaint: Abnormal UA with resistant bacteria This is a pleasant 83-year-old patient who follows with visiting physicians. 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 Has home care every day. Lives with her daughter. She is able to speak a few words. Does use a lift and able to feed herself. She is incontinent does use a diaper. 5 days ago patient came to the ER and was treated for UTI with IV antibiotics and sent home. Patient's cultures came back positive for Pseudomonas because of sensitivity patient was brought in to get IV antibiotics. No fever or chills reported. History is obtained by the daughter at the bedside. September 02: Resting in bed. Had all her lunch. On IV cefepime. Has a visitor. Pending input from ID the September 03: Comfortable. Daughter at the bedside. Tolerating a diet. Had spoken to ID yesterday plan to give IV antibiotics through Wednesday then discharge after that. Active Medications Acetaminophen (Acetaminophen Tab 325 Mg Tab) 650 mg PO Q6HR PRN PRN Reason: Mild Pain or Fever > 100.5 Albuterol/Ipratropium (Ipratropium-Albuterol 3 Ml Neb) 3 ml INHALATION RT-QID [facility] Last Admin: 09/04/23 11:37 Dose: 3 ml Cholecalciferol (Cholecalciferol 25 Mcg (1000 Iu) Tablet) 50 mcg PO DAILY [facility] Last Admin: 09/04/23 08:56 Dose: 50 mcg Clotrimazole (Clotrimazole 1% Cream 30 Gm Tube) 1 applic TOPICAL BID [facility] Last Admin: 09/04/23 08:56 Dose: 1 applic Gabapentin (Gabapentin 300 Mg Cap) 300 mg PO HS [facility] Last Admin: 09/03/23 20:39 Dose: 300 mg Sodium Chloride (Saline 0.9%) 1,000 mls @ 50 mls/hr IV .Q20H [facility] Last Admin: 09/03/23 14:51 Dose: 50 mls/hr Cefepime HCl 2 gm/ Sodium (Chloride) 100 mls @ 25 mls/hr IVPB Q8HR [facility]; Protocol Last Admin: 09/04/23 08:56 Dose: 25 mls/hr Naloxone HCl (Naloxone 0.4 Mg/Ml 1 Ml Vial) 0.2 mg IV Q2M PRN PRN Reason: Opioid Reversal Nystatin (Nystatin 100,000 Unit/Gm Powd 15 Gm) 1 applic TOPICAL BID [facility]; Protocol Last Admin: 09/04/23 08:56 Dose: 1 applic Review of systems: Could not be done as patient is dysarthric. The patient is able to make herself understood Social history: Has home care. Lives with daughter Mary. Started smoking at the age of 19 smoked less than a pack a day stopped in 2006. No alcohol. Physical examination: VITAL SIGNS: 97.7, 101, 16, 129/83, 92% GENERAL: Comfortable EYES: Pupils equal. Conjunctiva normal. HEENT: External appearance of nose and ears normal, oral cavity grossly normal. Left scalp anteriorly bone defect NECK: JVD not raised; masses not palpable. HEART: First and second heart sounds are normal; no edema. LUNGS: Respiratory rate normal; clear to auscultation. ABDOMEN: Soft, nontender, liver spleen not palpable, no masses palpable. PSYCH: Appears calm, unable to assessl. MUSCULOSKELETAL:No Clubbing/cyanosis;muscles-grossly intact. Evidence of OA NEUROLOGICAL: Contracture of the right upper extremity. Weak in the right lower extremity. Dysarthric. May say a few words. INVESTIGATIONS, reviewed in the clinical context: September 01: White count 7.9 hemoglobin 14.3 platelets 231 sodium 136 potassium 4.4 creatinine 0.53 Urine culture [August 27] Pseudomonas aeruginosa Assessment and plan: -Recurrent UTI with current episode positive for Pseudomonas aeruginosa. With urine culture positive from August 27. From the visit to the ER. IV cefepime -Right hemiparesis with contracture of the right upper extremity from a prior ruptured intracranial aneurysm. 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 Patient able to say a few words -BMI 39 Weight loss measures -DNR -Medical power of ip technology transactions attorney: Reji Hernandez Advance care planning [September 02, 2023: Discussed with patient reji Hernandez at the bedside. Patient's overall clinical condition was discussed. It further details daughter wants to hold medical treatment but does want DNR. Questions answered. Time spent about 25 minutes Discussed. Continue IV antibiotic Past Medical History Past Medical History: CVA/TIA, Hyperlipidemia, Hypertension, Sleep Apnea/CPAP/BIPAP Additional Past Medical History / Comment(s): brain aneurysm, renal aneurysm, skull surgery, psoriases, sleep apnes but would'nt use cpap machine,since stroke 10-17-13 not ambulatory, was rt side dominate but HAD learned to eat with lt hand, unable to write and has'nt read since stroke. speech garbled if trying to make a sentence few single words come out ok. History of Any Multi-Drug Resistant Organisms: MRSA Date of last positivie culture/infection: 2013 MDRO Source:: blood Past Surgical History: Adenoidectomy, Cholecystectomy, Hysterectomy, T onsillectomy Additional Past Surgical History / Comment(s): renal bypass d/t renal aneurysm, brain anuerysm skull surgery-clip/coil in place. Past Anesthesia/Blood Transfusion Reactions: No Reported Reaction Additional Past Anesthesia/Blood Transfusion Reaction / Comment(s): clausterphobia Past Psychological History: No Psychological Hx Reported Smoking Status: Former smoker Past Alcohol Use History: None Reported Past Drug Use History: None Reported
--- NOTE | 2023-09-04 14:32 | P.PN ---
Subjective Progress Note Date: 09/04/23 Principal diagnosis: Reason for follow-up Pseudomonas urine tract infection Patient is a 83-year-old female with a past medical history significant for hypertension hyperlipidemia CVA TIA brain aneurysm psoriasis patient has been brought into the hospital for evaluation of weakness confusion concerning for UTI outpatient culture positive for Pseudomonas failing outpa tient oral antibiotic therapy. On today's evaluation that is 09/04/2023, the patient continues to be afebrile, the patient is on room air and breathing comfortably, the Pt is more awake and alert and she was feeding herself mention feeling better no chest pain no cough no vomiting or diarrhea has been reported. No new lab has been obtained today urine is growing gram-negative blood culture so far negative Objective - Vital Signs Vital signs: Vital Signs Temp 97.7 F 09/04/23 12:00 Pulse 101 H 09/04/23 12:00 Resp 16 09/04/23 12:00 BP 129/83 09/04/23 12:00 Pulse Ox 92 L 09/04/23 12:00 FiO2 Intake & Output 09/03/23 09/04/23 09/04/23 18:59 06:59 18:59 Intake Total 1210 Output Total 500 400 Balance -500 810 Weight 99.79 kg Intake: Intake, IV Titration 500 Amount Cefepime 2 gm In Sodium 100 Chloride 0.9% 100 ml @ 25 mls/hr IVPB Q8HR [facility] Rx# :[id number] Sodium Chloride 0.9% 1, 400 000 ml @ 50 mls/hr IV . Q20H [facility] Rx#:[id number] Oral 710 Output: Urine 500 400 Stool 0 Other: Voiding Method External Catheter External Catheter External Catheter # Voids 1 - Exam GENERAL DESCRIPTION: An elderly female lying in bed in no distress RESPIRATORY SYSTEM: Unlabored breathing , decreased breath sounds at bases HEART: S1 S2 regular rate and rhythm , ABDOMEN: Soft , no tenderness EXTREMITIES: No edema feet - Labs CBC & Chem 7: 09/02/23 16:40 09/02/23 16:40 Labs: Microbiology - Last 24 Hours (Table) 09/02/23 16:40 Urine Culture - Preliminary Urine,Voided Gram Neg Bacilli 09/02/23 16:40 Blood Culture - Preliminary Blood 09/02/23 16:40 Blood Culture - Preliminary Blood Assessment and Plan (1) Pseudomonas aeruginosa infection Current Visit: Yes Status: Acute Code(s): A49.8 - OTHER BACTERIAL INFECTIONS OF UNSPECIFIED SITE SNOMED Code(s): 10533105 (2) Failure of outpatient treatment Current Visit: Yes Status: Acute Code(s): Z78.9 - OTHER SPECIFIED HEALTH STATUS SNOMED Code(s): 517582029 (3) UTI (urinary tract infection) Current Visit: Yes Status: Acute Code(s): N39.0 - URINARY TRACT INFECTION, SITE NOT SPECIFIED SNOMED Code(s): 18969251 Plan: 1patient presented to hospital with weakness mental status changes did have a dark foul-smelling urine with recent outpatient urine culture positive for Pseudomonas aeruginosa that was resistant to Cipro failing outpatient treatment 2-patient is more behaving as cystitis rather than deep infection with no fever or elevated white count 3-patient seem to have shown clinical improvement continue with cefepime Daughter at the bedside question answered Dictation was produced using [employer] dictation software. please excuse any grammatical, word or spelling errors. Time with Patient: Less than 30
[2023-09-04] MEDS: ZINC OXIDE PASTE (Z-GUARD) 1 APPLIC TOPICAL PRN (20:01)
--- NOTE | 2023-09-05 15:12 | P.PN ---
Subjective Progress Note Date: 09/05/23 Principal diagnosis: Reason for follow-up Pseudomonas urine tract infection Patient is a 83-year-old female with a past medical history significant for hypertension hyperlipidemia CVA TIA brain aneurysm psoriasis patient has been brought into the hospital for evaluation of weakness confusion concerning for UTI outpatient culture positive for Pseudomonas failing outpa tient oral antibiotic therapy. On today's evaluation that is 09/05/2023, Patient is afebrile patient is currently on room air and denies having any shortness of breath, the patient denies any chest pain or cough, the patient denies any nausea vomiting did not have any abdominal pain and no diarrhea has been reported. No new lab has been obtained today urine is growing gram-negative blood culture has been negative Objective - Vital Signs Vital signs: Vital Signs Temp 98.1 F 09/05/23 07:15 Pulse 52 L 09/05/23 08:18 Resp 16 09/05/23 07:15 BP 162/73 09/05/23 07:15 Pulse Ox 93 L 09/05/23 07:15 FiO2 Intake & Output 09/04/23 09/05/23 09/05/23 18:59 06:59 18:59 Intake Total 1080 1330 358 Output Total 400 400 Balance 680 930 358 Intake: Intake, IV Titration 500 Amount Cefepime 2 gm In Sodium 100 Chloride 0.9% 100 ml @ 25 mls/hr IVPB Q8HR [facility] Rx# :[id number] Sodium Chloride 0.9% 1, 400 000 ml @ 50 mls/hr IV . Q20H [facility] Rx#:[id number] Oral 1080 830 358 Output: Urine 400 400 Other: Voiding Method External Catheter External Catheter # Bowel Movements 1 - Exam GENERAL DESCRIPTION: An elderly female lying in bed in no distress RESPIRATORY SYSTEM: Unlabored breathing , decreased breath sounds at bases HEART: S1 S2 regular rate and rhythm , ABDOMEN: Soft , no tenderness EXTREMITIES: No edema feet - Labs CBC & Chem 7: 09/02/23 16:40 09/02/23 16:40 Labs: Microbiology - Last 24 Hours (Table) 09/02/23 16:40 Blood Culture - Preliminary Blood 09/02/23 16:40 Blood Culture - Preliminary Blood 09/02/23 16:40 Urine Culture - Preliminary Urine,Voided Gram Neg Bacilli Assessment and Plan (1) Pseudomonas aeruginosa infection Current Visit: Yes Status: Acute Code(s): A49.8 - OTHER BACTERIAL INFECTIONS OF UNSPECIFIED SITE SNOMED Code(s): 68364004 (2) Failure of outpatient treatment Current Visit: Yes Status: Acute Code(s): Z78.9 - OTHER SPECIFIED HEALTH STATUS SNOMED Code(s): 105053304 (3) UTI (urinary tract infection) Current Visit: Yes Status: Acute Code(s): N39.0 - URINARY TRACT INFECTION, SITE NOT SPECIFIED SNOMED Code(s): 14430756 Plan: 1patient presented to hospital with weakness mental status changes did have a dark foul-smelling urine with recent outpatient urine culture positive for Pseudomonas aeruginosa that was resistant to Cipro failing outpatient treatment 2-patient is more behaving as cystitis rather than deep infection with no fever or elevated white count 3-patient has shown clinical improvement remains to be afebrile blood cultures have been negative we will consider 3-day course of cefepime and no need for an tibiotic on discharge discussed with the daughter at the bedside Dictation was produced using [employer] dictation software. please excuse any grammatical, word or spelling errors. Time with Patient: Less than 30
--- NOTE | 2023-09-05 17:08 | P.PN ---
Progress Note - Text Progress Note Date: 09/05/23 Chief Complaint: Abnormal UA with resistant bacteria This is a pleasant 83-year-old patient who follows with visiting physicians. 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 Has home care every day. Lives with her daughter. She is able to speak a few words. Does use a lift and able to feed herself. She is incontinent does use a diaper. 5 days ago patient came to the ER and was treated for UTI with IV antibiotics and sent home. Patient's cultures came back positive for Pseudomonas because of sensitivity patient was brought in to get IV antibiotics. No fever or chills reported. History is obtained by the daughter at the bedside. September 02: Resting in bed. Had all her lunch. On IV cefepime. Has a visitor. Pending input from ID the September 03: Comfortable. Daughter at the bedside. Tolerating a diet. Had spoken to ID yesterday plan to give IV antibiotics through Wednesday then discharge after that. September 04: Patient's middle daughter at the bedside. Patient somewhat picky about her food. Remains on IV cefepime. Patient will be discharged tomorrow. No further antibiotics per ID. Active Medications Acetaminophen (Acetaminophen Tab 325 Mg Tab) 650 mg PO Q6HR PRN PRN Reason: Mild Pain or Fever > 100.5 Albuterol/Ipratropium (Ipratropium-Albuterol 3 Ml Neb) 3 ml INHALATION RT-QID [facility] Last Admin: 09/05/23 15:29 Dose: 3 ml Cholecalciferol (Cholecalciferol 25 Mcg (1000 Iu) Tablet) 50 mcg PO DAILY [facility] Last Admin: 09/05/23 08:28 Dose: 50 mcg Clotrimazole (Clotrimazole 1% Cream 30 Gm Tube) 1 applic TOPICAL BID [facility] Last Admin: 09/05/23 08:29 Dose: 1 applic Gabapentin (Gabapentin 300 Mg Cap) 300 mg PO HS [facility] Last Admin: 09/04/23 20:01 Dose: 300 mg Sodium Chloride (Saline 0.9%) 1,000 mls @ 50 mls/hr IV .Q20H [facility] Last Admin: 09/05/23 08:28 Dose: 50 mls/hr Cefepime HCl 2 gm/ Sodium (Chloride) 100 mls @ 25 mls/hr IVPB Q8HR [facility]; Protocol Last Admin: 09/05/23 15:30 Dose: 25 mls/hr Naloxone HCl (Naloxone 0.4 Mg/Ml 1 Ml Vial) 0.2 mg IV Q2M PRN PRN Reason: Opioid Reversal Nystatin (Nystatin 100,000 Unit/Gm Powd 15 Gm) 1 applic TOPICAL BID [facility]; Protocol Last Admin: 09/05/23 08:29 Dose: 1 applic Petrolatum (Zinc Oxide Paste (Z-Guard) 1 Applic) 1 applic TOPICAL BID PRN; Protocol PRN Reason: Wound Healing Last Admin: 09/04/23 20:01 Dose: 1 applic Review of systems: Could not be done as patient is dysarthric. The patient is able to make herself understood Social history: Has home care. Lives with daughter Mary. Started smoking at the age of 19 smoked less than a pack a day stopped in 2006. No alcohol. Physical examination: VITAL SIGNS: 98, 91, 16, 143 x 78, 92% GENERAL: Comfortable EYES: Pupils equal. Conjunctiva normal. HEENT: External appearance of nose and ears normal, oral cavity grossly normal. Left scalp anteriorly bone defect NECK: JVD not raised; masses not palpable. HEART: First and second heart sounds are normal; no edema. LUNGS: Respiratory rate normal; clear to auscultation. ABDOMEN: Soft, nontender, liver spleen not palpable, no masses palpable. PSYCH: Appears calm, unable to assessl. MUSCULOSKELETAL:No Clubbing/cyanosis;muscles-grossly intact. Evidence of OA NEUROLOGICAL: Contracture of the right upper extremity. Weak in the right lower extremity. Dysarthric. May say a few words. INVESTIGATIONS, reviewed in the clinical context: September 01: White count 7.9 hemoglobin 14.3 platelets 231 sodium 136 potassium 4.4 creatinine 0.53 Urine culture [August 27] Pseudomonas aeruginosa Assessment and plan: -Recurrent UTI with current episode positive for Pseudomonas aeruginosa. urine culture positive from August 27. - ER. Patient has no fever no white count IV cefepime -Right hemiparesis with contracture of the right upper extremity from a prior ruptured intracranial aneurysm. 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 Patient able to say a few words -BMI 39 Weight loss measures -DNR -Medical power of electrical test engineer: Daughter Mary Advance care planning [September 02, 2023: Discussed with patient daughter Mary at the bedside. Patient's overall clinical condition was discussed. It further details daughter wants to hold medical treatment but does want DNR. Questions answered. Time spent about 25 minutes Discussed with daughter at the bedside. Will be discharged tomorrow. 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 speech garbled if trying to make a sentence few single words come out ok. History of Any Multi-Drug Resistant Organisms: MRSA Date of last positivie culture/infection: 2013 MDRO Source:: blood Past Surgical History: Adenoidectomy, Cholecystectomy, Hysterectomy, Tonsillectomy Additional Past Surgical History / Comment(s): renal bypass d/t renal aneurysm, brain anuerysm skull surgery-clip/coil in place. Past Anesthesia/Blood Transfusion Reactions: No Reported Reaction Additional Past Anesthesia/Blood Transfusion Reaction / Comment(s): clausterphobia Past Psychological History: No Psychological Hx Reported Smoking Status: Former smoker Past Alcohol Use History: None Reported Past Drug Use History: None Reported
[2023-09-06 07:44] VITALS: RESP 18
[2023-09-06 08:36] LABS: Basophils # (A) 0.05 X 10*3/uL (0.00-0.10); Basophils % (A) 0.8 %; Eosinophils # (A) 0.26 X 10*3/uL (0.04-0.35); Eosinophils % (A) 3.9 %; HCT 42.9 % (37.2-46.3); HGB 13.3 g/dL (12.0-15.0); Lymphocytes # (A) 1.87 X 10*3/uL (0.90-5.00); Lymphocytes % (A) 28.2 %; MCH 29.4 pg (27.0-32.0); MCV 94.7 FL (80.0-97.0); Mean Platelet Volume 10.3 FL (9.5-12.2); Monocytes # (A) 0.61 X 10*3/uL (0.20-1.00); Monocytes % (A) 9.2 %; NRBC Per 100 WBC 0 X 10*3/uL (0.00-0.01); Neutrophils % (A) 57.4 %; Platelet Count 209 X 10*3/uL (140-440); RBC 4.53 X 10*6/uL (4.10-5.20); RDW 13.7 % (11.5-14.5); WBC 6.62 X 10*3/uL (4.50-10.00)
[2023-09-06 09:01] LABS: ALT 7 U/L (8-44); AST 13 U/L (13-35); Albumin 3.4 g/dL (3.8-4.9); Alkaline Phosphatase 73 U/L (41-126); BUN/Creat Ratio 19.17 Ratio (12.00-20.00); Blood Urea Nitrogen 11.5 mg/dL (9.0-27.0); Calcium 9.4 mg/dL (8.7-10.3); Carbon Dioxide 23.4 mmol/L (21.6-31.8); Chloride 109 mmol/L (96-109); Glucose 97 mg/dL (70-110); Sodium 141 mmol/L (135-145); Total Bilirubin 0.4 mg/dL (0.3-1.2); Total Protein 5.4 g/dL (6.2-8.2)
[2023-09-06 12:44] VITALS: BP 133/40; TEMP 97.5
[2023-09-06 15:09] VITALS: PULSE 97
--- NOTE | 2023-09-06 16:45 | P.DS ---
Providers Date of admission: 09/02/23 17:07 Expected date of discharge: 09/06/23 Attending physician: Jose Massey Consults: 09/02/23 17:06 Consult Physician Routine Consulting Provider: Bakari Vyas Consult Reason/Comments: UTI Do you want consulting provider notified?: Yes Primary care physician: Ismael Johnson MD Hospital Course: Chief Complaint: Abnormal UA with resistant bacteria This is a pleasant 83-year-old patient who follows with visiting physicians. 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 Has home care every day. Lives with her daughter. She is able to speak a few words. Does use a lift and able to feed herself. She is incontinent does use a diaper. 5 days ago patient came to the ER and was treated for UTI with IV antibiotics an d sent home. Patient's cultures came back positive for Pseudomonas because of sensitivity patient was brought in to get IV antibiotics. No fever or chills reported. History is obtained by the daughter at the bedside. September 02: Resting in bed. Had all her lunch. On IV cefepime. Has a visitor. Pending input from ID the September 03: Comfortable. Daughter at the bedside. Tolerating a diet. Had spoken to ID yesterday plan to give IV antibiotics through Wednesday then discharge after that. September 04: Patient's middle daughter at the bedside. Patient somewhat picky about her food. Remains on IV cefepime. Patient will be discharged tomorrow. No further antibiotics per ID. September 05: Patient noted to have eaten 100% of breakfast. About half for lunch. Comfortably. No fever no chills. Discussed with ID. Antibiotics completed. To be discharged. Spoke to case technician. Arranging transport. information systems audit manager given prescription gave to renew hospital bed that has reportedly broken Review of systems: Could not be done as patient is dysarthric. The patient is able to make herself understood Social history: Has home care. Lives with daughter Mary. Started smoking at the age of 19 smo ked less than a pack a day stopped in 2006. No alcohol. Physical examination: VITAL SIGNS: 97.5, 67, 18, 133/40, 93% room air GENERAL: Comfortable EYES: Pupils equal. Conjunctiva normal. HEENT: External appearance of nose and ears normal, oral cavity grossly normal. Left scalp anteriorly bone defect NECK: JVD not raised; masses not palpable. HEART: First and second heart sounds are normal; no edema. LUNGS: Respiratory rate normal; clear to auscultation. ABDOMEN: Soft, nontender, liver spleen not palpable, no masses palpable. PSYCH: Appears calm, unable to assessl. MUSCULOSKELETAL:No Clubbing/cyanosis;muscles-grossly intact. Evidence of OA NEUROLOGICAL: Contracture of the right upper extremity. Weak in the right lower extremity. Dysarthric. May say a few words. INVESTIGATIONS, reviewed in the clinical context: September 05: White count 6.6 hemoglobin 13.3 platelets 209 potassium 4 creatinine 0.6 September 01: White count 7.9 hemoglobin 14.3 platelets 231 sodium 136 potassium 4.4 creatinine 0.53 Urine culture [August 27] Pseudomonas aeruginosa Assessment and plan: -Recurrent UTI with current episode positive for Pseudomonas aeruginosa. urine culture positive from August 27. - ER. Patient has no fever no white count IV cefepime-completed course. No further antibiotics needed -Right hemiparesis with contracture of the right upper extremity from a prior ruptured intracranial aneurysm. 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 Patient able to say a few words -BMI 39 Weight loss measures -DNR -Medical power of environmental attorney: Reji Hernandez Advance care planning [September 02, 2023: Discussed with patient reji Hernandez at the bedside. Patient's overall clinical condition was discussed. It further details daughter wants to hold medical treatment but does want DNR. Questions answered. Time spent about 25 minutes Disposition: Home with family. 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 speech garbled if trying to make a sentence few single words come out ok. History of Any Multi-Drug Resistant Organisms: MRSA Date of last positivie culture/infection: 2013 MDRO Source:: blood Past Surgical History: Adenoidectomy, Cholecystectomy, Hysterectomy, Tonsillectomy Additional Past Surgical History / Comment(s): renal bypass d/t renal aneurysm, brain anuerysm skull surgery-clip/coil in place. Past Anesthesia/Blood Transfusion Reactions: No Reported Reaction Additional Past Anesthesia/Blood Transfusion Reaction / Comment(s): clausterphobia Past Psychological History: No Psychological Hx Reported Smoking Status: Former smoker Past Alcohol Use History: None Reported Past Drug Use History: None Reported Plan - Discharge Summary Discharge Rx Participant: No New Discharge Prescriptions: New Acetaminophen Tab [Tylenol] 650 mg PO Q6HR PRN tab PRN Reason: Mild Pain Or Fever > 100.5 Continue Mupirocin 2% Oint [Bactroban 2% Oint] 1 applic TOPICAL DAILY Betamethasone Valerate [Luxiq 0.1%] 1 applic TOPICAL DAILY Hydrocortisone Acetate [Vanicream 1% Hc] 1 applic TOPICAL DAILY Gabapentin [Neurontin] 300 mg PO HS Mucus Relief Tablet 1 tab PO DAILY Ciclopirox Olamine [Loprox 0.77% cream] 1 applic TOPICAL BID Cholecalciferol (Vitamin D3) [Vitamin D3 (50 Mcg = 2000 Iu)] 50 mcg PO DAILY Fluconazole [Diflucan] 150 mg PO MO Nystatin [Nystop] 1 applic TOPICAL BID Discharge Medication List Betamethasone Valerate [Luxiq 0.1%] 1 applic TOPICAL DAILY 09/02/23 [History] Cholecalciferol (Vitamin D3) [Vitamin D3 (50 Mcg = 2000 Iu)] 50 mcg PO DAILY 09/02/23 [History] Ciclopirox Olamine [Loprox 0.77% cream] 1 applic TOPICAL BID 09/02/23 [History] Fluconazole [Diflucan] 150 mg PO MO 09/02/23 [History] Gabapentin [Neurontin] 300 mg PO HS 09/02/23 [History] Hydrocortisone Acetate [Vanicream 1% Hc] 1 applic TOPICAL DAILY 09/02/23 [History] Mucus Relief Tablet 1 tab PO DAILY 09/02/23 [History] Mupirocin 2% Oint [Bactroban 2% Oint] 1 applic TOPICAL DAILY 09/02/23 [History] Nystatin [Nystop] 1 applic TOPICAL BID 09/02/23 [History] Acetaminophen Tab [Tylenol] 650 mg PO Q6HR PRN tab 09/06/23 [Rx] Follow up Appointment(s)/Referral(s): Ismael Johnson MD [Primary Care Provider] - 1-2 days (Please call office when your home and schedule follow up.) [facility] [NON-STAFF] - 1 Week Patient Instructions/Handouts: Urinary Tract Infection in Women (DC)
== END 2023-09-06 16:46 | disposition home or self-care (01) | DRG 690 ==
LOC: EC 14:11 → 5NMEDONC 17:07 → EEVIPCON 17:07 → 5NMEDONC 19:54
PROVIDERS: ADMIT Hospitalist; ATTEND Hospitalist
DX: N39.0 Urinary tract infection, site not specified (principal); I69.351 Hemiplegia and hemiparesis following cerebral infarction affecting right dominant side; B96.5 Pseudomonas (aeruginosa) (mallei) (pseudomallei) as the cause of diseases classified elsewhere; E78.5 Hyperlipidemia, unspecified; I10 Essential (primary) hypertension; R32 Unspecified urinary incontinence; Z66 Do not resuscitate; R47.1 Dysarthria and anarthria; Z87.440 Personal history of urinary (tract) infections
CPT/HCPCS: 36415; 80053; 81001; 83605; 85025; 86140; 87040; 87077; 87086; 87186; 94640; 99285

== ENCOUNTER 2024-01-09 13:24 | Emergency (ER) | payer MEDICARE ==
[2024-01-09 14:10] VITALS: TEMP 98.9
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
--- NOTE | 2024-01-09 14:38 | CT ---
EXAMINATION TYPE: CT brain wo con DATE OF EXAM: 01/09/2024 COMPARISON: 08/28/2023 INDICATION: Headache DLP: 1095.7 mGycm, Automated exposure control for dose reduction was used. CONTRAST: None CT of the brain is performed utilizing 3 mm thick sections through the posterior fossa and 3 mm thick sections through the remaining calvarium. Study is performed within 24 hours of arrival to the hosp ital. No abnormal hyperdensity is present to suggest an acute intracranial hemorrhage. No mass lesion is evident. Metallic artifact is within the left temporal region. Aneurysm clip likely present. Postsurgical craniotomy changes present. No acute infarcts are evident. Periventricular white matter hypodensity is present in the right front al lobe and left parietal and occipital lobes. There is prominent extra-axial ex vacuo evident on the left. No acute infarct is identified. Paranasal sinuses and mastoid air cells within the [id number] are clear. IMPRESSION: 1. No acute intracranial process. Follow up MRI can be performed as clinically indicated. 2. Prior white matter ischemic-type changes, stable from comparison. 3. Stable Postsurgical left craniotomy changes and metallic artifact left middle cranial fossa region . [facility], Workstation: [facility], 01/09/2024 2:36 PM
--- NOTE | 2024-01-09 15:41 | XR ---
EXAMINATION TYPE: XR chest 2V DATE OF EXAM: 01/09/2024 COMPARISON: 08/28/2023 INDICATION: Cough history of COPD unable to move right arm TECHNIQUE: Frontal and lateral views of the chest are obtained. FINDINGS: The heart size is normal. The pulmonary vasculature is normal. The lungs are clear. Degenerative joint changes are the right shoulder. Consider rotator cuff tear. There is loss of the acromiohumeral joint space bilaterally IMPRESSION: 1. No acute pulmonary process. 2. Rotator cuff tears of the bilateral shoulders likely present [facility], Workstation: [facility], 01/09/2024 3:38 PM
[2024-01-09] MEDS ORDERED: ONDANSETRON 4 MG ODT STARTER PACK 2 TAB BTL PO STA (15:43)
[2024-01-09 16:10] VITALS: BP 126/78; PULSE 77; RESP 18
== END 2024-01-09 16:46 | disposition home or self-care (01) ==
LOC: EC 13:24
DX: R51.9 Headache, unspecified (principal); Z86.73 Personal history of transient ischemic attack (TIA), and cerebral infarction without residual deficits
CPT/HCPCS: 70450; 71046; 99284

== ENCOUNTER 2024-05-23 16:07 | Inpatient (IN) | payer MEDICARE ==
--- NOTE | 2024-05-23 16:32 | ED ---
SOB HPI - General Chief Complaint: Shortness of Breath Stated Complaint: JOSE Time Seen by Provider: 05/23/24 16:09 Source: family, EMS, RN notes reviewed, old records reviewed Mode of arrival: EMS Limitations: no limitations - History of Present Illness Initial Comments: This is an 84 female to the ER for evaluation of dyspnea severe shortness of breath brought in by family emerged with 3 days of worsening shortness of breath feels like patient is getting a little bit more tired more altered and more combative per the daughter at bedside. Patient self does not provide any history secondary to aphasia from prior CVA MD Complaint: shortness of breath, cough -: days(s) (3) Severity: moderate Severity scale (1-10): 4 Quality: aching Consistency: constant Improves With: nothing Known History Of: COPD, congestive heart failure Context: recent URI, recent illness Treatments Prior to Arrival: none - Related Data Home Medications Medication Instructions Recorded Confirmed Betamethasone Valerate [Luxiq 0.1%] 1 applic TOPICAL DAILY PRN 09/02/23 05/23/24 Cholecalciferol (Vitamin D3) 50 mcg PO DAILY 09/02/23 05/23/24 [Vitamin D3 (50 Mcg = 2000 Iu)] Ciclopirox Olamine [Loprox 0.77% 1 applic TOPICAL BID PRN 09/02/23 05/23/24 cream] Fluconazole [Diflucan] 150 mg PO MO 09/02/23 05/23/24 Gabapentin [Neurontin] 300 mg PO HS 09/02/23 05/23/24 Hydrocortisone Acetate [Vanicream 1 applic TOPICAL DAILY PRN 09/02/23 05/23/24 1% Hc] Mupirocin 2% Oint [Bactroban 2% 1 applic TOPICAL DAILY PRN 09/02/23 05/23/24 Oint] Nystatin [Nystop] 1 applic TOPICAL BID PRN 09/02/23 05/23/24 Previous Rx's Medication Instructions Recorded Atorvastatin [Lipitor] 40 mg PO HS #30 tab 05/26/24 Ipratropium-Albuterol Nebulize 3 ml INHALATION TID #90 each 05/26/24 [Duoneb 0.5 mg-3 mg/3 ml Soln] Metoprolol Tartrate [Lopressor] 25 mg PO BID #60 tab 05/26/24 Spironolactone [Aldactone] 25 mg PO DAILY #30 tab 05/26/24 cefuroxime axetiL [Ceftin] 500 mg PO BID #6 tab 05/26/24 predniSONE 10 mg PO DAILY #30 tab 05/26/24 Allergies Allergy/AdvReac Type Severity Reaction Status Date / Time No Known Allergies Allergy Verified 05/23/24 17:55 Review of Systems ROS Statement: Those systems with pertinent positive or pertinent negative responses have been documented in the HPI. ROS Other: All systems not noted in ROS Statement are negative. 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 speech garbled if trying to make a sentence few single words come out ok. History of Any Multi-Drug Resistant Organisms: MRSA Date of last positivie culture/infection: 2013 MDRO Source:: blood Past Surgical History: Adenoidectomy, Cholecystectomy, Hysterectomy, Tonsillectomy Additional Past Surgical History / Comment(s): renal bypass d/t renal aneurysm, brain anuerysm skull surgery-clip/coil in place. Past Anesthesia/Blood Transfusion Reactions: No Reported Reaction Additional Past Anesthesia/Blood Transfusion Reaction / Comment(s): clausterphobia Past Psychological History: No Psychological Hx Reported Smoking Status: Never smoker Past Alcohol Use History: None Reported Past Drug Use History: None Reported - Past Family History Father Family Medical History: Cancer Additional Family Medical History / Comment(s): from esophageal cancer age 46 Mother Family Medical History: Congestive Heart Failure (CHF) Additional Family Medical History / Comment(s): at age 78 from chf General Exam Limitations: altered mental status, physical limitation General appearance: alert, in no apparent distress, anxious, in distress, obese Head exam: Present: atraumatic, normocephalic, normal inspection Eye exam: Present: normal appearance, PERRL, EOMI. Absent: scleral icterus, conjunctival injection, periorbital swelling ENT exam: Present: normal exam, mucous membranes moist Neck exam: Present: normal inspection. Absent: tenderness, meningismus, lymphadenopathy Respiratory exam: Present: respiratory distress, wheezes, accessory muscle use, decreased breath sounds, prolonged expiratory. Absent: rales, rhonchi, stridor Cardiovascular Exam: Present: regular rate, normal rhythm, normal heart sounds. Absent: systolic murmur, diastolic murmur, rubs, gallop, clicks GI/Abdominal exam: Present: soft, normal bowel sounds. Absent: distended, tenderness, guarding, rebound, rigid Extremities exam: Present: normal inspection, full ROM, normal capillary refill. Absent: tenderness, pedal edema, joint swelling, calf tenderness Back exam: Present: normal inspection Neurological exam: Present: alert, oriented X3, CN II-XII intact Psychiatric exam: Present: normal affect, normal mood Skin exam: Present: warm, dry, intact, normal color. Absent: rash Course Vital Signs 05/23/24 05/23/24 05/23/24 16:11 17:01 17:33 Temperature 98.5 F Pulse Rate 117 H 115 H 105 H Respiratory 20 29 H 22 Rate Blood Pressure 123/69 117/82 O2 Sat by Pulse 94 L 90 L Oximetry Fraction of Inspired Oxygen (FIO2) 05/23/24 05/23/24 05/24/24 17:41 22:26 00:17 Temperature Pulse Rate 112 H 110 H 105 H Respiratory 18 18 26 H Rate Blood Pressure 145/82 127/85 O2 Sat by Pulse 91 L 94 L Oximetry Fraction of Inspired Oxygen (FIO2) 05/24/24 05/24/24 05/24/24 02:00 04:00 06:00 Temperature Pulse Rate 95 100 98 Respiratory 24 24 24 Rate Blood Pressure 148/84 148/82 143/89 O2 Sat by Pulse 94 L 94 L 95 Oximetry Fraction of Inspired Oxygen (FIO2) 05/24/24 05/24/24 05/24/24 07:13 08:00 08:30 Temperature Pulse Rate 89 101 H Respiratory 20 24 Rate Blood Pressure 153/87 143/83 O2 Sat by Pulse 95 94 L 89 L Oximetry Fraction of Inspired Oxygen (FIO2) 05/24/24 05/24/24 05/24/24 09:41 10:00 10:54 Temperature 98.8 F Pulse Rate 105 H Respiratory 22 Rate Blood Pressure 144/81 O2 Sat by Pulse 95 94 L Oximetry Fraction of 40 30 Inspired Oxygen (FIO2) 0305/24/24 05/24/24 10:57 11:00 11:07 Temperature Pulse Rate 112 H 111 H 110 H Respiratory 17 18 Rate Blood Pressure O2 Sat by Pulse 86 L Oximetry Fraction of Inspired Oxygen (FIO2) 05/24/24 05/24/24 05/24/24 11:33 12:15 12:17 Temperature 97.7 F 97.9 F Pulse Rate 106 H 101 H Respiratory 24 22 Rate Blood Pressure 129/77 128/68 O2 Sat by Pulse 96 96 Oximetry Fraction of 30 30 Inspired Oxygen (FIO2) - Reevaluation(s) Reevaluation #1: 05/23/24 19:41 Medical records reviewed No prior history of significant arrhythmia Reevaluation #2: 05/23/24 19:41 Patient symptoms appear to be improved work of breathing appears to be improved with supplemental O2 Patient did take her oxygen off became hypoxic and had episode of ventricular tachycardia Patient can become combative at times but is cooperative to her oxygen Reevaluation #3: 05/23/24 19:41 Patient informed of results and questions answered as well as daughter at bedside Reevaluation #4: Was pt. sent in by a medical professional or institution (, PA, FORENSIC SCIENCE TECHNICIAN, urgent care, hospital, or half-way...) When possible be specific @ -no Did you speak to anyone other than the patient for history (EMS, parent, family, police, friend...)? What history was obtained from this source @ -no Did you review nursing and triage notes (agree or disagree)? Why? @ -agree Are old charts reviewed (outside hosp., previous admission, EMS record, old EKG, old radiological studies, urgent care reports/EKG's, half-way records)? Report findings @ -yes Differential Diagnosis (chest pain, altered mental status, abdominal pain women, abdominal pain men, vaginal bleeding, weakness, fever, dyspnea, syncope, headache, dizziness, GI bleed, back pain, seizure, CVA, palpatations, mental health, musculoskeletal)? @ -prior EKG interpreted by me (3pts min.). @ -yes X-rays interpreted by me (1pt min.). @ -yes significant CHF CT interpreted by me (1pt min.). @ -no U/S interpreted by me (1pt. min.). @ -no What testing was considered but not performed or refused? (CT, X-rays, U/S, labs)? Why? @ -none What meds were considered but not given or refused? Why? @ -none Did you discuss the management of the patient with other professionals (professionals i.e. , PA, FORENSIC SCIENCE TECHNICIAN, lab, RT, psych nurse, aids social worker, hospital mortician, teacher, search and rescue officer, case management rn)? Give summary @ -no Was smoking cessation discussed for >3mins.? @ -no Was critical care preformed (if so, how long)? @ -yes95 Were there social determinants of health that impacted care today? How? (Homele ssness, low income, unemployed, alcoholism, drug addiction, transportation, low edu. Level, literacy, decrease access to med. care, fdc, rehab)? @ -none Was there de-escalation of care discussed even if they declined (Discuss DNR or withdrawal of care, Hospice)? DNR status @ -no What co-morbidities impacted this encounter? (DM, HTN, Smoking, COPD, CAD, Cancer, CVA, ARF, Chemo, Hep., AIDS, mental health diagnosis, sleep apnea, morbid obesity)? @ -none Was patient admitted / discharged? Hospital course, mention meds given and route, prescriptions, significant lab abnormalities, going to OR and other pertinent info. @ - 84 female to the ER for evaluation of significant shortness of breath CHF and hypoxia, patient does have episode of ventricular tachycardia here in the ER started on amiodarone, patient will admit for pulse oximetry monitoring supplemental O2 and possible need for BiPAP Admitted Undiagnosed new problem with uncertain prognosis? @ -no Drug Therapy requiring intensive monitoring for toxicity (Heparin, Nitro, Insulin, Cardizem)? @ -no Were any procedures done? @ -no Diagnosis/symptom? @ -Ventricular tachycardia CHF with hypoxia Acute, or Chronic, or Acute on Chronic? @ -Acute Uncomplicated (without systemic symptoms) or Complicated (systemic symptoms)? @ -Complicated Side effects of treatment? @ -no Exacerbation, Progression, or Severe Exacerbation? @ -exacerbation Poses a threat to life or bodily function? How? (Chest pain, [place], [place], pneumonia, PE, COPD, DKA, ARF, appy, cholecystitis, CVA, Diverticulitis, Homicidal, Suicidal, threat to staff... and all critical care pts) @ -yes ventricular tachycardia extremes of age Reevaluation #5: Differential Dyspnea: Coronary syndrome, arrhythmia, tamponade, asthma, COPD, pulmonary embolism, pneumonia, pneumothorax, pulmonary effusion, anaphylaxis, diabetic ketoacidosis, flailed chest, pulmonary contusion, diaphragmatic rupture, anemia, neuromuscular, this is not meant to be an all-inclusive list. - Consultations Consultation #1: Spoke with admitting physicians who agreed to admit this patient Medical Decision Making - Medical Decision Making 84 female to the ER for evaluation of significant shortness of breath CHF and hypoxia, patient does have episode of ventricular tachycardia here in the ER started on amiodarone, patient will admit for pulse oximetry monitoring supplem ental O2 and possible need for BiPAP - Lab Data Result diagrams: 05/25/24 03:01 05/26/24 05:52 Lab Results 05/23/24 05/23/24 05/23/24 Range/Units 17:02 17:02 17:02 WBC 12.1 H (3.8-10.6) k/uL RBC 4.95 (3.80-5.40) m/uL Hgb 14.2 (11.4-16.0) gm/dL Hct 47.0 H (34.0-46.0) % MCV 94.9 (80.0-100.0) fL MCH 28.8 (25.0-35.0) pg MCHC 30.3 L (31.0-37.0) g/dL RDW 14.1 (11.5-15.5) % Plt Count 276 (150-450) k/uL MPV 7.8 Neutrophils % 75 % Lymphocytes % 15 % Monocytes % 7 % Eosinophils % 1 % Basophils % 0 % Neutrophils # 9.0 H (1.3-7.7) k/uL Lymphocytes # 1.9 (1.0-4.8) k/uL Monocytes # 0.9 (0-1.0) k/uL Eosinophils # 0.1 (0-0.7) k/uL Basophils # 0.1 (0-0.2) k/uL Hypochromasia Slight PT 10.6 (10.0-12.5) sec INR 1.0 (<1.2) APTT 25.6 (22.0-30.0) sec Sodium 136 L (137-145) mmol/L Potassium 4.0 (3.5-5.1) mmol/L Chloride 100 (98-107) mmol/L Carbon Dioxide 26 (22-30) mmol/L Anion Gap 10 mmol/L BUN 16 (7-17) mg/dL Creatinine 0.73 (0.52-1.04) mg/dL Est GFR (CKD-EPI)AfAm 88 (>60 ml/min/1.73 sqM) Est GFR (CKD-EPI)NonAf 76 (>60 ml/min/1.73 sqM) Glucose 155 H (74-99) mg/dL Plasma Lactic Acid Alberto (0.7-2.0) mmol/L Calcium 9.7 (8.4-10.2) mg/dL Magnesium 1.9 (1.6-2.3) mg/dL Total Bilirubin 0.7 (0.2-1.3) mg/dL AST 14 (14-36) U/L ALT 9 (4-34) U/L Alkaline Phosphatase 87 (38-126) U/L Troponin I (0.000-0.034) ng/mL NT-Pro-B Natriuret Pep 2330 pg/mL Total Protein 6.1 L (6.3-8.2) g/dL Albumin 3.4 L (3.5-5.0) g/dL 05/23/24 05/23/24 Range/Units 17:02 17:02 WBC (3.8-10.6) k/uL RBC (3.80-5.40) m/uL Hgb (11.4-16.0) gm/dL Hct (34.0-46.0) % MCV (80.0-100.0) fL MCH (25.0-35.0) pg MCHC (31.0-37.0) g/dL RDW (11.5-15.5) % Plt Count (150-450) k/uL MPV Neutrophils % % Lymphocytes % % Monocytes % % Eosinophils % % Basophils % % Neutrophils # (1.3-7.7) k/uL Lymphocytes # (1.0-4.8) k/uL Monocytes # (0-1.0) k/uL Eosinophils # (0-0.7) k/uL Basophils # (0-0.2) k/uL Hypochromasia PT (10.0-12.5) sec INR (<1.2) APTT (22.0-30.0) sec Sodium (137-145) mmol/L Potassium (3.5-5.1) mmol/L Chloride (98-107) mmol/L Carbon Dioxide (22-30) mmol/L Anion Gap mmol/L BUN (7-17) mg/dL Creatinine (0.52-1.04) mg/dL Est GFR (CKD-EPI)AfAm (>60 ml/min/1.73 sqM) Est GFR (CKD-EPI)NonAf (>60 ml/min/1.73 sqM) Glucose (74-99) mg/dL Plasma Lactic Acid Alberto 1.2 (0.7-2.0) mmol/L Calcium (8.4-10.2) mg/dL Magnesium (1.6-2.3) mg/dL Total Bilirubin (0.2-1.3) mg/dL AST (14-36) U/L ALT (4-34) U/L Alkaline Phosphatase (38-126) U/L Troponin I 0.015 (0.000-0.034) ng/mL NT-Pro-B Natriuret Pep pg/mL Total Protein (6.3-8.2) g/dL Albumin (3.5-5.0) g/dL - EKG Data -: EKG Interpreted by Me (EKG is sinus tachycardia 114 NC 142 QRS 131 QTc 444) - Radiology Data Radiology results: report reviewed (Chest x-ray is positive for CHF), image reviewed Critical Care Time Critical Care Time: Yes Total Critical Care Time: 95 Disposition Clinical Impression: Acute pulmonary edema, Congestive heart failure, Hypoxia, Ventricular tachycardia Disposition: ADMITTED IP TO THIS HOSP Is patient prescribed a controlled substance at d/c from ED?: No Time of Disposition: 19:40
[2024-05-23 17:11] LABS: Basophils # (A) 0.1 k/uL (0-0.2); Basophils % (A) 0 %; Eosinophils # (A) 0.1 k/uL (0-0.7); Eosinophils % (A) 1 %; HGB 14.2 gm/dL (11.4-16.0); Hypochromasia Slight; Lymphocytes # (A) 1.9 k/uL (1.0-4.8); Lymphocytes % (A) 15 %; MCH 28.8 pg (25.0-35.0); MCHC 30.3 g/dL (31.0-37.0); MCV 94.9 fL (80.0-100.0); Mean Platelet Volume 7.8; Monocytes # (A) 0.9 k/uL (0-1.0); Monocytes % (A) 7 %; Neutrophils % (A) 75 %; Platelet Count 276 k/uL (150-450); RBC 4.95 m/uL (3.80-5.40); RDW 14.1 % (11.5-15.5); WBC 12.1 k/uL (3.8-10.6)
[2024-05-23 17:20] LABS: Partial Thromboplastin Time 25.6 sec (22.0-30.0); Prothrombin Time 10.6 sec (10.0-12.5)
[2024-05-23 17:21] LABS: ALT 9 U/L (4-34); AST 14 U/L (14-36); African American GFR (CKD) 88 (>60 ml/min/1.73 sqM); Albumin 3.4 g/dL (3.5-5.0); Alkaline Phosphatase 87 U/L (38-126); Anion Gap 10 mmol/L; Blood Urea Nitrogen 16 mg/dL (7-17); Calcium 9.7 mg/dL (8.4-10.2); Carbon Dioxide 26 mmol/L (22-30); Chloride 100 mmol/L (98-107); Glucose 155 mg/dL (74-99); Magnesium 1.9 mg/dL (1.6-2.3); Non-African American GFR(CKD) 76 (>60 ml/min/1.73 sqM); Sodium 136 mmol/L (137-145); Total Bilirubin 0.7 mg/dL (0.2-1.3); Total Protein 6.1 g/dL (6.3-8.2)
--- NOTE | 2024-05-23 17:24 | XR ---
EXAMINATION TYPE: XR chest 2V DATE OF EXAM: 05/23/2024 5:11 PM COMPARISON: Prior chest radiograph, most recently dated 01/09/2024. CLINICAL INDICATION: Female, 84 years old with history of difficulty breathing; [facility] TECHNIQUE: XR chest 2V Frontal and lateral views of the chest. FINDINGS: Low lung volumes limit study. Cardiomegaly and mild pulmonary vascular congestive changes. No sizable pleural effusion. No residual pneumothorax. No acute focal consolidation. No acute osseous abnormality. IMPRESSION: Cardiomegaly and mild pulmonary vascular congestive changes. No sizable pleural effusion. [facility], , 05/23/2024 5:21 PM
[2024-05-23 17:29] LABS: NT-Pro-B-Type Natriuretic Pept 2330 pg/mL
[2024-05-23] MEDS: IPRATROPIUM-ALBUTEROL 3 ML NEB INHALATION STA (17:33)
[2024-05-23] MEDS: DEXTROSE 5% IN WATER 100 ML with AMIODARONE 150 MG IV ONE (20:02)
[2024-05-23] MEDS: FUROSEMIDE 10 MG/ML 4 ML VIAL IV SCH (20:02)
[2024-05-23] MEDS: AMIODARONE 360 MG in DEXTROSE 5% IN WATER 200 ML IV ONE (20:04)
[2024-05-24] MEDS: AMIODARONE 450 MG in DEXTROSE 5% IN WATER 250 ML IV SCH (01:28)
[2024-05-24 09:22] LABS: Influenza A Not Detected (Not Detectd); Influenza B Not Detected (Not Detectd); RSV Not Detected (Not Detectd)
[2024-05-24 09:26] LABS: Appearance,Urine Clear (Clear); Bacteria,Urine Moderate /hpf; Bilirubin,Urine Negative (Negative); Blood,Urine Small (Negative); Color,Urine Light Yellow; Glucose,Urine (UA) Negative (Negative); Ketones,Urine Negative (Negative); Leukocyte Esterase,Urine Large (Negative); Nitrite,Urine Negative (Negative); PH, Urine 5.5 (5.0-8.0); Protein,Urine Negative (Negative); RBC,Urine 8 /hpf (0-5); Specific Gravity,Urine 1.013 (1.001-1.035); Squamous Epithelial Cell,Urine <1 /hpf (0-4); Urobilinogen,Urine <2.0 mg/dL (<2.0); WBC,Urine 29 /hpf (0-5)
[2024-05-24] MEDS: LORazepam 2 MG/ML INJ IV STA (10:47)
[2024-05-24] MEDS: IPRATROPIUM-ALBUTEROL 3 ML NEB INHALATION PRN (10:57)
[2024-05-24] MEDS ORDERED: LORazepam 0.5 MG TAB PO PRN (11:33)
--- NOTE | 2024-05-24 11:38 | P.CRDCN ---
History of Present Illness History of present illness: HISTORY OF PRESENT ILLNESS: This is a 84-year-old female with a past medical history significant for CVA, obstructive sleep apnea, and former nicotine dependence. 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 We have been asked to see the patient in consultation for CHF and V. tach. Patient examined at the bedside in the emergency room. Patient was brought to the hospital for worsening mental status. Patient's family is at the bedside and states she is also been short of breath and coughing a lot at home. She denies any chest pain or pressure. According to ER documentation, the patient took off her oxygen and became hypoxic. Apparently she had an episode of ventricular tachycardia and was started on IV amiodarone. However there are no telemetry tracings available for review of this episode. DIAGNOSTICS: - EKG reveals sinus tachycardia with PVCs. Left bundle branch block. - Chest xray cardiomegaly and mild pulmonary vascular congestion. - Laboratory data: WBC 12.1. Hemoglobin 14.2. Platelet count 276. Sodium 136. Potassium 4.0. BUN 16. Creatinine 0.73. Lactic acid 1.2. Troponin negative x 3. proBNP 2330. - Current home cardiac medications include none. - Most recent echocardiogram obtained in 2018 revealed ejection fraction 55 to 60%, mild LVH, mild TR - Cardiac catheterization history: Unknown REVIEW OF SYSTEMS: At the time of my exam: Unable to obtain through review of systems secondary to altered mental status PHYSICAL EXAM: VITAL SIGNS: Reviewed. GENERAL: Well-developed in no acute distress. HEENT: Head is normocephalic. Pupils are equal, round. Sclerae anicteric. Mucous membranes of the mouth are moist. Neck supple. No JVD or thyromegaly LUNGS: Respirations even and unlabored. Lungs with bilateral rhonchi HEART: Regular rate and rhythm. S1 and S2 heard. ABDOMEN: Soft. Nondistended. Nontender. EXTREMITIES: Normal range of motion. No clubbing or cyanosis. Peripheral pulses intact. No lower extremity edema NEUROLOGIC: Lethargic ASSESSMENT: Altered mental status Acute hypoxic respiratory failure Acute heart failure with preserved EF, echo pending, EF 55 to 60% in 2018 Sinus tachycardia PVCs Left bundle branch block History of CVA History of obstructive sleep apnea Former nicotine dependence History of CVA with residual expressive aphasia Obesity: BMI 34.8 PLAN: Obtain 2D echo to assess cardiac structure and function Discontinue IV amiodarone Continue IV Lasix 40 mg every 12 hours Daily weights, accurate intake and output, and monitoring of kidney function Add Lipitor 40 mg at night Consult pulmonary for evaluation Continue telemetry monitoring to assess for arrhythmias Further recommendations pending patient course Nurse practitioner note has been reviewed by physician. Signing provider agrees with the documented findings, assessment, and plan of care documented by PLANT SCIENCES PROFESSOR as a scribe. 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 speech garbled if trying to make a sentence few single words come out ok. History of Any Multi-Drug Resistant Organisms: MRSA Date of last positivie culture/infection: 2013 MDRO Source:: blood Past Surgical History: Adenoidectomy, Cholecystectomy, Hysterectomy, Tons illectomy Additional Past Surgical History / Comment(s): renal bypass d/t renal aneurysm, brain anuerysm skull surgery-clip/coil in place. Past Anesthesia/Blood Transfusion Reactions: No Reported Reaction Additional Past Anesthesia/Blood Transfusion Reaction / Comment(s): clausterphobia Past Psychological History: No Psychological Hx Reported Smoking Status: Never smoker Past Alcohol Use History: None Reported Past Drug Use History: None Reported - Past Family History Father Family Medical History: Cancer Additional Family Medical History / Comment(s): from esophageal cancer age 46 Mother Family Medical History: Congestive Heart Failure (CHF) Additional Family Medical History / Comment(s): at age 78 from chf Medications and Allergies Home Medications Medication Instructions Recorded Confirmed Type Betamethasone Valerate [Luxiq 0.1%] 1 applic TOPICAL DAILY PRN 09/02/23 05/23/24 History Cholecalciferol (Vitamin D3) 50 mcg PO DAILY 09/02/23 05/23/24 History [Vitamin D3 (50 Mcg = 2000 Iu)] Ciclopirox Olamine [Loprox 0.77% 1 applic TOPICAL BID PRN 09/02/23 05/23/24 History cream] Fluconazole [Diflucan] 150 mg PO MO 09/02/23 05/23/24 History Gabapentin [Neurontin] 300 mg PO HS 09/02/23 05/23/24 History Hydrocortisone Acetate [Vanicream 1 applic TOPICAL DAILY PRN 09/02/23 05/23/24 History 1% Hc] Mupirocin 2% Oint [Bactroban 2% 1 applic TOPICAL DAILY PRN 09/02/23 05/23/24 History Oint] Nystatin [Nystop] 1 applic TOPICAL BID PRN 09/02/23 05/23/24 History Allergies Allergy/AdvReac Type Severity Reaction Status Date / Time No Known Allergies Allergy Verified 05/23/24 17:55 Physical Exam Vitals: Vital Signs Temp Pulse Resp BP Pulse Ox 05/24/24 07:13 89 20 153/87 95 05/24/24 06:00 98 24 143/89 95 05/24/24 04:00 100 24 148/82 94 L 05/24/24 02:00 95 24 148/84 94 L 05/24/24 00:17 105 H 26 H 127/85 94 L 05/23/24 22:26 110 H 18 145/82 91 L 05/23/24 17:41 112 H 18 05/23/24 17:33 105 H 22 05/23/24 17:01 115 H 29 H 117/82 90 L 05/23/24 16:11 98.5 F 117 H 20 123/69 94 L Intake and Output 05/23/24 05/24/24 05/24/24 22:59 06:59 14:59 Other: Weight 86.183 kg Results 05/23/24 17:02 05/23/24 17:02 Cardiac Enzymes 05/23/24 05/23/24 05/23/24 Range/Units 17:02 17:02 20:41 AST 14 (14-36) U/L Troponin I 0.015 0.018 (0.000-0.034) ng/mL 05/23/24 Range/Units 23:54 AST (14-36) U/L Troponin I 0.017 (0.000-0.034) ng/mL Coagulation 05/23/24 Range/Units 17:02 PT 10.6 (10.0-12.5) sec APTT 25.6 (22.0-30.0) sec CBC 05/23/24 Range/Units 17:02 WBC 12.1 H (3.8-10.6) k/uL RBC 4.95 (3.80-5.40) m/uL Hgb 14.2 (11.4-16.0) gm/dL Hct 47.0 H (34.0-46.0) % Plt Count 276 (150-450) k/uL Comprehensive Metabolic Panel 05/23/24 Range/Units 17:02 Sodium 136 L (137-145) mmol/L Potassium 4.0 (3.5-5.1) mmol/L Chloride 100 (98-107) mmol/L Carbon Dioxide 26 (22-30) mmol/L BUN 16 (7-17) mg/dL Creatinine 0.73 (0.52-1.04) mg/dL Glucose 155 H (74-99) mg/dL Calcium 9.7 (8.4-10.2) mg/dL AST 14 (14-36) U/L ALT 9 (4-34) U/L Alkaline Phosphatase 87 (38-126) U/L Total Protein 6.1 L (6.3-8.2) g/dL Albumin 3.4 L (3.5-5.0) g/dL Current Medications Generic Name Dose Route Start Last Admin Trade Name Freq PRN Reason Stop Dose Admin Albuterol/Ipratropium 3 ml 05/23/24 19:38 Ipratropium-Albuterol 3 Ml Neb INHALATION RT-QID PRN Shortness Of Breath Or Wheezing Furosemide 40 mg 05/23/24 19:45 05/23/24 20:02 Furosemide 10 Mg/Ml 4 Ml Vial IV 40 mg Q12HR SINGH Administration Amiodarone HCl 450 mg/ 250 mls @ 16.667 mls/hr 05/24/24 01:45 05/24/24 01:28 Dextrose/Water IV 05/24/24 19:44 0.5 mg/min .Q15H SINGH 16.667 mls/hr Administration Protocol 0.5 MG/MIN Nitroglycerin 0.5 inch 05/24/24 22:00 Nitroglycerin Oint 1 Inch/Gm Packet TOPICAL QID SINGH Intake and Output 05/23/24 05/24/24 05/24/24 22:59 06:59 14:59 Other: Weight 86.183 kg 05/23/24 17:02 05/23/24 17:02
[2024-05-24 12:20] LABS: Glucose,Whole Blood 135 mg/dL (70-110)
--- NOTE | 2024-05-24 12:21 | CA ---
Transthoracic Echo Report Name: Tori Siu Age: 84 Gender: F : 1940 Exam Date: 05/24/2024 10:54 Exam Location: [facility] Ht (in): 62 Wt (lb): 190 Ordering Physician: Frank Wright DO Attending/Referring Phys: Dress Designer Nannette Gant RDCS Procedure CPT: Indications: Heart failure Cardiac Hx: UTI, LBBB Technical Quality: Very technically difficult study Contrast 1: Definity Total Dose (mL): 2 Contrast 2: Total Dose (mL): MEASUREMENTS (Male / Female) Normal Values 2D ECHO LV Diastolic Diameter PLAX 4.8 cm 4.2 - 5.9 / 3.9 - 5.3 cm LV Systolic Diameter PLAX 3.3 cm IVS Diastolic Thickness 1.2 cm 0.6 - 1.0 / 0.6 - 0.9 cm LVPW Diastolic Thickness 1.1 cm 0.6 - 1.0 / 0.6 - 0.9 cm LV Relative Wall Thickness 0.5 RV Internal Dim ED PLAX 2.3 cm LV Diastolic Volume MOD BP 75.1 cm??? 67 - 155 / 56 - 104 cm??? LV Systolic Volume MOD BP 41.2 cm??? 22 - 58 / 19 - 49 cm??? LV Ejection Fraction MOD BP 45.2 % >= 55 % LV Cardiac Index MOD BP 1903.2 cm???/min???m??? LV Diastolic Volume MOD 4C 89.4 cm??? LV Systolic Volume MOD 4C 55.7 cm??? LV Ejection Fraction MOD 4C 37.7 % LV Cardiac Index MOD 4C 1886.1 cm???/min???m??? LV Diastolic Length 4C 8.1 cm LV Systolic Length 4C 7.3 cm LV Diastolic Volume MOD 2C 54.1 cm??? LV Systolic Volume MOD 2C 25.0 cm??? LV Ejection Fraction MOD 2C 53.9 % LV Cardiac Index MOD 2C 1632.3 cm???/min???m??? LV Diastolic Length 2C 6.9 cm LV Systolic Length 2C 5.9 cm DOPPLER AV Peak Velocity 151.4 cm/s AV Peak Gradient 9.2 mmHg AV Mean Velocity 103.7 cm/s AV Mean Gradient 4.8 mmHg AV Velocity Time Integral 25.4 cm LVOT Peak Velocity 94.2 cm/s LVOT Peak Gradient 3.6 mmHg LVOT Velocity Time Integral 15.8 cm MV Peak Velocity 162.0 cm/s MV Peak Gradient 10.5 mmHg MV Mean Velocity 104.6 cm/s MV Mean Gradient 5.5 mmHg MV Velocity Time Integral 21.7 cm MV E' Velocity 9.2 cm/s TR Peak Velocity 213.4 cm/s TR Peak Gradient 18.2 mmHg FINDINGS Left Ventricle Left ventricular ejection fraction is estimated at 40 %. Mildly increased septal wall thickness. Mildly increased posterior wall thickness. Mildly decreased left ventricular ejection fraction. Abnormal septal motion consistent with left bundle branch block. Right Ventricle Right ventricle not well visualized. Right Atrium Normal right atrial size. Left Atrium Normal left atrial size. Mitral Valve Mitral valve not well visualized. Moderate mitral stenosis, Mean PG 5.5 mmHg. Mild mitral annular calcification. Aortic Valve Aortic valve not well visualized. No aortic stenosis. No aortic regurgitation. Tricuspid Valve Tricuspid valve not well visualized. Mild tricuspid regurgitation. No tricuspid stenosis. Pulmonic Valve Structurally normal pulmonic valve. Trace pulmonic regurgitation. No pulmonic stenosis. Pericardium Echo free space anterior to the right ventricle likely represents a fat pad. Aorta Aortic root and proximal ascending aorta not well visualized. CONCLUSIONS Normal LV size, mild global decrease in contractility with ejection fraction of 40%. There is left bundle noted. Mild mitral and tricuspid regurgitation. There is calcific mitral stenosis probably mild. No pulmonary hypertension. No pericardial effusion probable fat pad Previewed by: Dr. Chris Yarbrough MD (Electronically Signed) Final Date: 24 May 2024 12:20
[2024-05-24] MEDS: methylPREDNISolone SOD SUCCI 40 MG/ML 1 ML VIAL IV SCH (12:39)
[2024-05-24] MEDS: LACTATED RINGERS 1,000 ML IV SCH (13:26)
[2024-05-24] MEDS: ENOXAPARIN 40 MG/0.4 ML SYRINGE SQ SCH (13:42)
--- NOTE | 2024-05-24 14:18 | P.CNPUL ---
History of Present Illness Consult date: 05/24/24 Requesting physician: Jose Massey Reason for consult: dyspnea Chief complaint: Shortness of breath History of present illness: This is an 84-year-old female known history of multiple medical problems including history of CVA with right-sided weakness and aphasia, obstructive sleep apnea syndrome, former smoker, patient presented to the ER with 2 days history of increased shortness of breath, upon arrival to the ER, patient was noted to be in congestive heart failure, and apparently she had 1 episode of nonsustained ventricular tachycardia. Patient was placed on amiodarone, seen by cardiology on consultation, and we were also asked to see the patient in consultation as she was noted to be quite short of breath, and she was noted to have almost inspiratory stridor which is according to her daughter this is a chronic problem could be related to her previous history of CVA and possibly vocal cord paralysis. At any rate I saw the patient in the ER, and after my evaluation, I reviewed her chest x-ray which showed evidence of mild pulmonary edema, patient was noted to have a bit of leukocytosis with WC count of 12.1, electrolytes were normal renal profile is normal, BNP level was noted to be slightly elevated, I evaluated the patient and recommended transfer to ICU, discussed CODE STATUS with the daughter at bedside, but she was unable to make the decision before discussing this with her other sisters. According to the daughter that her mother is prone to develop urinary tract infections quite often, and whenever she develops urinary tract infection, she gets more short of breath more confused, and has been frequently getting antibiotics for recurrent urinary tract infections in the past. Indeed her urinalysis showed pyuria and bacteriuria with leukocyte esterase large, and urine nitrite negative. Echocardiogram done in the ER showed LV dysfunction with ejection fraction of 40%, no evidence of pulmonary hypertension, there was mild mitral and tricuspid regurgitation. Patient will be admitted to the ICU on amiodarone, she received Lasix while in the ER, and after I evaluated the patient I recommended bronchodilators in the form of DuoNeb, and recommended methylprednisolone. I also recommended empiric ceftriaxone for possible pneumonia, procalcitonin level is pending. Review of Systems Unable to obtain adequate review of systems because of mental status Past Medical History Past Medical History: CVA/TIA, Hyperlipidemia, Hypertension, Sleep Apnea/CPAP/BIPAP Additional Past Medical History / Comment(s): brain aneurysm, renal aneurysm, skull surgery, psoriases, sleep apnes but would'nt use cpap machine,since stroke 10-17-13 not ambulatory, was rt side dominate but HAD learned to eat with lt hand, unable to write and has'nt read since stroke. speech garbled if trying to make a sentence few single words come out ok. History of Any Multi-Drug Resistant Organisms: MRSA Date of last positivie culture/infection: 2013 MDRO Source:: blood Past Surgical History: Adenoidectomy, Cholecystectomy, Hysterectomy, Tonsillectomy Additional Past Surgical History / Comment(s): renal bypass d/t renal aneurysm, brain anuerysm skull surgery-clip/coil in place. Past Anesthesia/Blood Transfusion Reactions: No Reported Reaction Additional Past Anesthesia/Blood Transfusion Reaction / Comment(s): clausterphobia Past Psychological History: No Psychological Hx Reported Smoking Status: Former smoker Past Alcohol Use History: None Reported Additional Past Alcohol Use History / Comment(s): started smoking age 19 smoked < 1 ppd, quit 2006 Past Drug Use History: None Reported - Past Family History Father Family Medical History: Cancer Additional Family Medical History / Comment(s): from esophageal cancer age 46 Mother Family Medical History: Congestive Heart Failure (CHF) Additional Family Medical History / Comment(s): at age 78 from chf Medications and Allergies Home Medications Medication Instructions Recorded Confirmed Type Betamethasone Valerate [Luxiq 0.1%] 1 applic TOPICAL DAILY PRN 09/02/23 05/23/24 History Cholecalciferol (Vitamin D3) 50 mcg PO DAILY 09/02/23 05/23/24 History [Vitamin D3 (50 Mcg = 2000 Iu)] Ciclopirox Olamine [Loprox 0.77% 1 applic TOPICAL BID PRN 09/02/23 05/23/24 History cream] Fluconazole [Diflucan] 150 mg PO MO 09/02/23 05/23/24 History Gabapentin [Neurontin] 300 mg PO HS 09/02/23 05/23/24 History Hydrocortisone Acetate [Vanicream 1 applic TOPICAL DAILY PRN 09/02/23 05/23/24 History 1% Hc] Mupirocin 2% Oint [Bactroban 2% 1 applic TOPICAL DAILY PRN 09/02/23 05/23/24 History Oint] Nystatin [Nystop] 1 applic TOPICAL BID PRN 09/02/23 05/23/24 History Allergies Allergy/AdvReac Type Severity Reaction Status Date / Time No Known Allergies Allergy Verified 05/23/24 17:55 Physical Exam Vitals: Vital Signs Temp Pulse Pulse Resp BP BP Pulse Ox 05/24/24 13:15 98 18 115/65 98 05/24/24 13:00 97.9 F 100 105 H 22 114/63 115/65 89 L 05/24/24 12:50 05/24/24 12:45 96 21 92/78 89 L 05/24/24 12:30 103 H 20 128/68 95 05/24/24 12:25 05/24/24 12:17 05/24/24 12:15 97.9 F 101 H 22 128/68 96 05/24/24 11:33 97.7 F 106 H 24 129/77 96 05/24/24 11:07 110 H 18 05/24/24 11:00 111 H 86 L 05/24/24 10:57 112 H 17 05/24/24 10:54 94 L 05/24/24 10:00 98.8 F 105 H 22 144/81 95 05/24/24 09:41 05/24/24 08:30 89 L 05/24/24 08:00 101 H 24 143/83 94 L 05/24/24 07:13 89 20 153/87 95 05/24/24 06:00 98 24 143/89 95 05/24/24 04:00 100 24 148/82 94 L 05/24/24 02:00 95 24 148/84 94 L 05/24/24 00:17 105 H 26 H 127/85 94 L 05/23/24 22:26 110 H 18 145/82 91 L 05/23/24 17:41 112 H 18 05/23/24 17:33 105 H 22 05/23/24 17:01 115 H 29 H 117/82 90 L 05/23/24 16:11 98.5 F 117 H 20 123/69 94 L FiO2 05/24/24 13:15 05/24/24 13:00 70 05/24/24 12:50 70 05/24/24 12:45 05/24/24 12:30 50 05/24/24 12:25 50 05/24/24 12:17 30 05/24/24 12:15 30 05/24/24 11:33 05/24/24 11:07 05/24/24 11:00 05/24/24 10:57 05/24/24 10:54 30 05/24/24 10:00 05/24/24 09:41 40 05/24/24 08:30 05/24/24 08:00 05/24/24 07:13 05/24/24 06:00 05/24/24 04:00 05/24/24 02:00 05/24/24 00:17 05/23/24 22:26 05/23/24 17:41 05/23/24 17:33 05/23/24 17:01 05/23/24 16:11 Intake and Output 05/23/24 05/24/24 05/24/24 22:59 06:59 14:59 Output Total 600 Balance -600 Output: Urine 600 Other: Voiding Method External Catheter Weight 86.183 kg 79 kg GENERAL: Revealed 84-year-old female in moderate respiratory distress with inspiratory stridor and seems to be using her accessory muscles. Head: Atraumatic, normocephalic HEENT: . Pupils are equal, round. Sclerae anicteric. Mucous membranes of the mouth are moist. Neck supple. No JVD or thyromegaly LUNGS: Rhonchi and crackles noted bilaterally with inspiratory stridor seems to be best heard over the neck area/vocal cord area. HEART: Distant S1-S2, no S3 gallop, no murmur. ABDOMEN: Obese, soft. Nondistended. Nontender. No rebound no guarding. Positive bowel sounds. EXTREMITIES: No clubbing edema or cyanosis NEUROLOGIC: Patient seems to have aphasia and chronic right-sided weakness related to previous CVA, she has some component of dementia and unable to answer any questions herself. Psychiatric: Confused, blunted affect, poor mental status. Results - Laboratory Findings CBC and BMP: 05/23/24 17:02 05/23/24 17:02 PT/INR, D-dimer PT 10.6 sec (10.0-12.5) 05/23/24 17:02 INR 1.0 (<1.2) 05/23/24 17:02 Abnormal lab findings: Abnormal Labs 05/23/24 05/23/24 05/24/24 17:02 17:02 09:01 WBC 12.1 H Hct 47.0 H MCHC 30.3 L Neutrophils # 9.0 H Sodium 136 L Glucose 155 H POC Glucose (mg/dL) Total Protein 6.1 L Albumin 3.4 L Urine Blood Small H Ur Leukocyte Esterase Large H Urine RBC 8 H Urine WBC 29 H Urine Bacteria Moderate H 05/24/24 12:19 WBC Hct MCHC Neutrophils # Sodium Glucose POC Glucose (mg/dL) 135 H Total Protein Albumin Urine Blood Ur Leukocyte Esterase Urine RBC Urine WBC Urine Bacteria - Diagnostic Findings Chest x-ray: image reviewed (As noted in HPI, chest x-ray showed cardiomegaly and interstitial edema, underlying pneumonia on the left side is not entirely ruled out.) Assessment and Plan Assessment: Impression: Acute hypoxic respiratory failure, most likely secondary to acute systolic congestive heart failure, ejection fraction 40% noted on echocardiogram today. Suspect stridor secondary to vocal cord paralysis from previous CVA Possible urinary tract infection Possible underlying pneumonia as noted on chest x-ray Sinus tachycardia with left bundle branch block, no clear-cut evidence of vent ricular tachycardia History of CVA with right-sided weakness and expressive aphasia Obesity with BMI of 34.8 Ex-smoker History of obstructive sleep apnea syndrome Recommendation: Patient was seen and examined in the ER and I recommended admitting the patient to the ICU for now. Place patient on BiPAP as he seems to be in moderate respiratory distress Diurese patient with Lasix 40 mg IV push twice daily Empiric antibiotics for presumptive underlying pneumonia however if procalcitonin level is normal we will discontinue antibiotics Check urine culture Agree with discontinuing amiodarone Daily I's and O's and daily weights Consider CT of the soft tissues of the neck if the patient continues to have ongoing stridor Discussed CODE STATUS with daughter at bedside however she would like to discuss this with her other sisters. Will continue to follow. Time with Patient: Greater than 30
[2024-05-24] MEDS: FUROSEMIDE 10 MG/ML 4 ML VIAL IV SCH (14:23)
[2024-05-24] MEDS: DEXMEDETOMIDINE/0.9% NACL(PMX) 400 MCG in EMPTY BAG 1 BAG IV SCH (15:52)
[2024-05-24 17:35] LABS: Glucose,Whole Blood 160 mg/dL (70-110)
[2024-05-24 18:23] LABS: Glucose,Whole Blood 160 mg/dL (70-110)
--- NOTE | 2024-05-24 19:02 | P.HPIM ---
History of Present Illness H&P Date: 05/24/24 Chief Complaint: Short of breath This is a pleasant 84-year-old patient who follows with visiting physicians, Dr. Johnson. 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 Has home care every day. Lives with her daughter.Mary. She is able to speak a few words. Does use a lift and able to feed herself with the left hand.. She is incontinent does use a diaper. Patient seen in the ICU this afternoon. Accompanied by her 2 daughters at the bedside. For about a week patient denies any increasing shortness of breath. Fits of coughing. Raspy. Sounds wet. No fever. Admitted is refusing her breathing treatments. No phlegm produced. Currently on the BiPAP setting of 02/09/70%. [facility] ER is a question about DVT. Was given IV amiodarone and then discontinued. Review of systems: Could not be done as patient is dysarthric. The patient is able to make herself understood Social history: Has home care. Lives with daughter Mary. Started smoking at the age of 19 smoked less than a pack a day stopped in 2006. No alcohol. Uses a Kiya lift Physical examination: VITAL SIGNS: 97.9, 101, 22, 128 x 68, 96% on BiPAP GENERAL: Reclining in bed, short of breath EYES: Pupils equal. Conjunctiva normal. HEENT: External appearance of nose and ears normal, oral cavity grossly normal. Left scalp anteriorly bone defect NECK: JVD not raised; masses not palpable. HEART: First and second heart sounds are normal; no edema. LUNGS: Respiratory rate increased, diminished breath sounds some crackles n. ABDOMEN: Soft, nontender, liver spleen not palpable, no masses palpable. PSYCH: Appears calm, unable to assessl. MUSCULOSKELETAL:No Clubbing/cyanosis;muscles-grossly intact. Evidence of OA NEUROLOGICAL: Contracture of the right upper extremity. Weak in the right lower extremity. Dysarthric. May say a few words. INVESTIGATIONS, reviewed in the clinical context: 2D echo: EF 40%. Moderate mitral stenosis May 23: White count 12.1 hemoglobin 14.2 platelets 276 sodium 136 potassium 4 creatinine 0.73 Troponin I 0.015, 0.018, 0.017 proBNP 2330 UA: Leukoesterase large. WBC clumps few. BC more than 182 Influenza type A, type B, RSV, SARS-CoV-2: Not detected EKG tracing personally reviewed by me-sinus tachycardia. Left bundle twin block. PVC. Chest x-ray film personally reviewed by me-cardiomegaly. Possible infiltrate. Possible venous prominence. Assessment and plan: -Probable pneumonia suspect gram-negative organism. Patient has symptoms for about a week. IV ceftriaxone. -Acute hypoxic respiratory failure secondary to pneumonia and possible CHF Requiring BiPAP this morning. Being followed by machinist/machine builder -Acute UTI with cystitis with prior recurrent episodes IV ceftriaxone. Chronically incontinent -Acute on chronic congestive heart failure from systolic dysfunction EF 40% IV Lasix twice daily. Add Aldactone. 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 Patient able to say a few words -Chronic dysarthria does eat a chopped diet. Able to use the left hand -BMI 31.1. Obesity Weight loss measures -Full code with instructions -Medical power of trademark attorney: Daughter Mary Care was discussed with the patient's 2 daughters at bedside. Election Clerk consulted. Follow Past Medical History Past Medical History: CVA/TIA, Hyperlipidemia, Hypertension, Sleep Apnea/CPAP/BIPAP Additional Past Medical History / Comment(s): brain aneurysm, renal aneurysm, skull surgery, psoriases, sleep apnes but would'nt use cpap machine,since stroke 10-17-13 not ambulatory, was rt side dominate but HAD learned to eat with lt hand, unable to write and has'nt read since stroke. speech garbled if trying to make a sentence few single words come out ok. History of Any Multi-Drug Resistant Organisms: MRSA Date of last positivie culture/infection: 2013 MDRO Source:: blood Past Surgical History: Adenoidectomy, Cholecystectomy, Hysterectomy, Tonsillectomy Additional Past Surgical History / Comment(s): renal bypass d/t renal aneurysm, brain anuerysm skull surgery-clip/coil in place. Past Anesthesia/Blood Transfusion Reactions: No Reported Reaction Additional Past Anesthesia/Blood Transfusion Reaction / Comment(s): clausterphobia Past Psychological History: No Psychological Hx Reported Smoking Status: Never smoker Past Alcohol Use History: None Reported Past Drug Use History: None Reported - Past Family History Father Family Medical History: Cancer Additional Family Medical History / Comment(s): from esophageal cancer age 46 Mother Family Medical History: Congestive Heart Failure (CHF) Additional Family Medical History / Comment(s): at age 78 from chf Medications and Allergies Home Medications Medication Instructions Recorded Confirmed Type Betamethasone Valerate [Luxiq 0.1%] 1 applic TOPICAL DAILY PRN 09/02/23 05/23/24 History Cholecalciferol (Vitamin D3) 50 mcg PO DAILY 09/02/23 05/23/24 History [Vitamin D3 (50 Mcg = 2000 Iu)] Ciclopirox Olamine [Loprox 0.77% 1 applic TOPICAL BID PRN 09/02/23 05/23/24 Hist ory cream] Fluconazole [Diflucan] 150 mg PO MO 09/02/23 05/23/24 History Gabapentin [Neurontin] 300 mg PO HS 09/02/23 05/23/24 History Hydrocortisone Acetate [Vanicream 1 applic TOPICAL DAILY PRN 09/02/23 05/23/24 History 1% Hc] Mupirocin 2% Oint [Bactroban 2% 1 applic TOPICAL DAILY PRN 09/02/23 05/23/24 History Oint] Nystatin [Nystop] 1 applic TOPICAL BID PRN 09/02/23 05/23/24 History Allergies Allergy/AdvReac Type Severity Reaction Status Date / Time No Known Allergies Allergy Verified 05/23/24 17:55 Physical Exam Vitals: Vital Signs Temp Pulse Resp BP Pulse Ox FiO2 05/24/24 11:33 97.7 F 106 H 24 129/77 96 05/24/24 11:07 110 H 18 05/24/24 11:00 111 H 86 L 05/24/24 10:57 112 H 17 05/24/24 10:54 94 L 30 05/24/24 10:00 98.8 F 105 H 22 144/81 95 05/24/24 09:41 40 05/24/24 08:30 89 L 05/24/24 08:00 101 H 24 143/83 94 L 05/24/24 07:13 89 20 153/87 95 05/24/24 06:00 98 24 143/89 95 05/24/24 04:00 100 24 148/82 94 L 05/24/24 02:00 95 24 148/84 94 L 05/24/24 00:17 105 H 26 H 127/85 94 L 05/23/24 22:26 110 H 18 145/82 91 L 05/23/24 17:41 112 H 18 05/23/24 17:33 105 H 22 05/23/24 17:01 115 H 29 H 117/82 90 L 05/23/24 16:11 98.5 F 117 H 20 123/69 94 L Intake and Output 05/23/24 05/24/24 05/24/24 22:59 06:59 14:59 Other: Weight 86.183 kg Results CBC & Chem 7: 05/23/24 17:02 05/23/24 17:02 Labs: Abnormal Lab Results - Last 24 Hours (Table) 05/23/24 05/23/24 05/24/24 Range/Units 17:02 17:02 09:01 WBC 12.1 H (3.8-10.6) k/uL Hct 47.0 H (34.0-46.0) % MCHC 30.3 L (31.0-37.0) g/dL Neutrophils # 9.0 H (1.3-7.7) k/uL Sodium 136 L (137-145) mmol/L Glucose 155 H (74-99) mg/dL Total Protein 6.1 L (6.3-8.2) g/dL Albumin 3.4 L (3.5-5.0) g/dL Urine Blood Small H (Negative) Ur Leukocyte Esterase Large H (Negative) Urine RBC 8 H (0-5) /hpf Urine WBC 29 H (0-5) /hpf Urine Bacteria Moderate H (None) /hpf
[2024-05-24] MEDS: ATORVASTATIN 40 MG TAB PO SCH (19:57)
[2024-05-24] MEDS: SPIRONOLACTONE 25 MG TAB PO SCH (19:57)
[2024-05-24] MEDS ORDERED: NITROGLYCERIN OINT 1 INCH/GM PACKET TOPICAL SCH (22:00)
[2024-05-25 00:03] LABS: Glucose,Whole Blood 143 mg/dL (70-110)
[2024-05-25 03:48] LABS: HCT 45.5 % (34.0-46.0); HGB 13.8 gm/dL (11.4-16.0); Hypochromasia Slight; MCH 28.6 pg (25.0-35.0); MCHC 30.3 g/dL (31.0-37.0); MCV 94.4 fL (80.0-100.0); Mean Platelet Volume 7.7; Platelet Count 310 k/uL (150-450); RBC 4.81 m/uL (3.80-5.40); RDW 14.1 % (11.5-15.5); WBC 9.4 k/uL (3.8-10.6)
[2024-05-25 04:14] LABS: African American GFR (CKD) 70 (>60 ml/min/1.73 sqM); Anion Gap 10 mmol/L; Blood Urea Nitrogen 29 mg/dL (7-17); Calcium 10.2 mg/dL (8.4-10.2); Carbon Dioxide 30 mmol/L (22-30); Chloride 99 mmol/L (98-107); Glucose 144 mg/dL (74-99); Non-African American GFR(CKD) 61 (>60 ml/min/1.73 sqM); Sodium 139 mmol/L (137-145)
[2024-05-25] MEDS: NYSTATIN 100,000 UNIT/GM POWD 15 GM TOPICAL SCH (11:40)
--- NOTE | 2024-05-25 13:36 | P.PN ---
Subjective Progress Note Date: 05/25/24 Principal diagnosis: Acute hypoxic respiratory failure secondary to acute systolic congestive heart failure This is an 84-year-old female known history of multiple medical problems including history of CVA with right-sided weakness and aphasia, obstructive sleep apnea syndrome, former smoker, patient presented to the ER with 2 days history of increased shortness of breath, upon arrival to the ER, patient was noted to be in congestive heart failure, and apparently she had 1 episode of nonsustained ventricular tachycardia. Patient was placed on amiodarone, seen by cardiology on consultation, and we were also asked to see the patient in consultation as she was noted to be quite short of breath, and she was noted to have almost inspiratory stridor which is according to her daughter this is a chronic problem could be related to her previous history of CVA and possibly v ocal cord paralysis. At any rate I saw the patient in the ER, and after my evaluation, I reviewed her chest x-ray which showed evidence of mild pulmonary edema, patient was noted to have a bit of leukocytosis with WC count of 12.1, electrolytes were normal renal profile is normal, BNP level was noted to be slightly elevated, I evaluated the patient and recommended transfer to ICU, discussed CODE STATUS with the daughter at bedside, but she was unable to make the decision before discussing this with her other sisters. According to the daughter that her mother is prone to develop urinary tract infections quite often, and whenever she develops urinary tract infection, she gets more short of breath more confused, and has been frequently getting antibiotics for recurrent urinary tract infections in the past. Indeed her urinalysis showed pyuria and bacteriuria with leukocyte esterase large, and urine nitrite negative. Echocardiogram done in the ER showed LV dysfunction with ejection fraction of 40%, no evidence of pulmonary hypertension, there was mild mitral and tricuspid regurgitation. Patient will be admitted to the ICU on amiodarone, she received Lasix while in the ER, and after I evaluated the patient I recommended bronchodilators in the form of DuoNeb, and recommended methylprednisolone. I also recommended empiric ceftriaxone for possible pneumonia, procalcitonin level is pending. Patient was seen today on 05/25/2024, remains in the ICU, on BiPAP at 12/5/40%, patient is doing much better today compared to yesterday, remains on diuretics, remains on antibiotics, procalcitonin level is 0.26, BNP level is 2330., Blood cultures are negative, urine culture is in progress. Again the patient is feeling much better today compared to yesterday, she is not a great historian, but she is definitely more comfortable today compared to yesterday. WBC count is 9.4 hemoglobin 13.8 electrolytes are normal renal profile is normal blood sugar is 144. Objective - Vital Signs Vital signs: Vital Signs Temp 98.3 F 05/25/24 12:00 Pulse 104 H 05/25/24 13:00 Resp 25 H 05/25/24 13:00 BP 128/76 05/25/24 13:00 Pulse Ox 97 05/25/24 13:00 FiO2 40 05/25/24 08:00 Intake & Output 05/24/24 05/25/24 05/25/24 18:59 06:59 18:59 Intake Total 225 220 300 Output Total 900 450 150 Balance -675 -230 150 Weight 79 kg 80.3 kg Intake: IV 225 220 60 Lactated Ringers 1,000 ml 175 220 60 @ 20 mls/hr IV .Q24H [facility] Rx#:[id number] cefTRIAXone 2 gm In 50 Sodium Chloride 0.9% 50 ml @ 100 mls/hr IVPB Q24HR [facility] Rx#:[id number] Oral 240 Output: Urine 900 450 150 Other: Voiding Method External Catheter External Catheter External Catheter - Exam GENERAL: Revealed 84-year-old female on BiPAP, comfortable, not stridorous today. And not using her accessory muscles. Head: Atraumatic, normocephalic HEENT: . Pupils are equal, round. Sclerae anicteric. Mucous membranes of the mouth are moist. Neck supple. No JVD or thyromegaly LUNGS: Diminished breath sound bilaterally no crackles rhonchi or wheezes HEART: Distant S1-S2, no S3 gallop, no murmur. ABDOMEN: Obese, soft. Nondistended. Nontender. No rebound no guarding. Positive bowel sounds. EXTREMITIES: No clubbing edema or cyanosis NEUROLOGIC patient has expressive aphasia, otherwise unremarkable. She does have poor mental status. Psychiatric: Confused, blunted affect, poor mental status. - Labs CBC & Chem 7: 05/25/24 03:01 05/25/24 03:01 Labs: Abnormal Lab Results - Last 24 Hours (Table) 05/24/24 05/24/24 05/25/24 Range/Units 17:33 18:22 00:02 MCHC (31.0-37.0) g/dL BUN (7-17) mg/dL Glucose (74-99) mg/dL POC Glucose (mg/dL) 160 H 160 H 143 H (70-110) mg/dL 05/25/24 05/25/24 Range/Units 03:01 03:01 MCHC 30.3 L (31.0-37.0) g/dL BUN 29 H (7-17) mg/dL Glucose 144 H (74-99) mg/dL POC Glucose (mg/dL) (70-110) mg/dL Microbiology - Last 24 Hours (Table) 05/24/24 09:01 Urine Culture - Preliminary Urine,Voided Assessment and Plan Assessment: Impression: Acute hypoxic respiratory failure, most likely secondary to acute systolic congestive heart failure, ejection fraction 40% noted on echocardiogram today. Suspect stridor secondary to vocal cord paralysis from previous CVA, resolved compared to yesterday but the patient is still on BiPAP at this point. Possible urinary tract infection, urine culture is in progress Possible underlying pneumonia as noted on chest x-ray, however since pr ocalcitonin level is not elevated, pneumonia is less likely. Sinus tachycardia with left bundle branch block, no clear-cut evidence of ventricular tachycardia History of CVA with right-sided weakness and expressive aphasia Obesity with BMI of 34.8 Ex-smoker History of obstructive sleep apnea syndrome Recommendation: Transition BiPAP to nasal cannula today. Continue diuretics Continue antibiotics until the final culture of the urine is back. And decide accordingly Daily I's and O's and daily weights Transfer to medical floor, patient does not need ICU at this point. CODE STATUS was changed to full code with instructions patient not to be intubated. Patient has many complex situations as noted above clearly not ready for discharge. Will continue to follow. Time with Patient: Less than 30
[2024-05-25 16:00] VITALS: BMI 32.3
[2024-05-25 18:31] LABS: Glucose,Whole Blood 163 mg/dL (70-110)
[2024-05-25] MEDS: METOPROLOL TARTRATE 25 MG TAB PO SCH (20:01)
--- NOTE | 2024-05-25 20:36 | P.PN ---
Progress Note - Text Progress Note Date: 05/25/24 Chief Complaint: Short of breath This is a pleasant 84-year-old patient who follows with visiting physicians, Dr. Johnson. 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 Has home care every day. Lives with her daughter.Mary. She is able to speak a few words. Does use a lift and able to feed herself with the left hand.. She is incontinent does use a diaper. Patient seen in the ICU this afternoon. Accompanied by her 2 daughters at the bedside. For about a week patient denies any increasing shortness of breath. Fits of coughing. Raspy. Sounds wet. No fever. Admitted is refusing her breathing treatments. No phlegm produced. Currently on the BiPAP setting of 02/09/70%. [facility] is a question about DVT. Was given IV amiodarone and then discontinued. May 25: ICU. Seen by me this morning. Patient been off BiPAP. On 3 L nasal cannula. Had about 50% for breakfast. Nystatin powder has been ordered for the groin. Patient is talking a few words. Appears rather comfortable. Removed out of the ICU. Active Medications Albuterol/Ipratropium (Ipratropium-Albuterol 3 Ml Neb) 3 ml INHALATION RT-QID PRN PRN Reason: Shortness Of Breath Or Wheezing Last Admin: 05/24/24 10:57 Dose: 3 ml Atorvastatin Calcium (Atorvastatin 40 Mg Tab) 40 mg PO HS [facility] Last Admin: 05/25/24 20:01 Dose: 40 mg Enoxaparin Sodium (Enoxaparin 40 Mg/0.4 Ml Syringe) 40 mg SQ DAILY [facility] Last Admin: 05/25/24 08:46 Dose: 40 mg Furosemide (Furosemide 10 Mg/Ml 4 Ml Vial) 40 mg IV Q12HR [facility] Last Admin: 05/25/24 20:01 Dose: 40 mg Lactated Ringer's (Lactated Ringers) 1,000 mls @ 20 mls/hr IV .Q24H [facility] Last Admin: 05/25/24 13:20 Dose: 20 mls/hr Ceftriaxone Sodium 2 gm/ (Sodium Chloride) 50 mls @ 100 mls/hr IVPB Q24HR [facility]; Protocol Last Admin: 05/25/24 08:46 Dose: 100 mls/hr Lorazepam (Lorazepam 0.5 Mg Tab) 0.5 mg PO Q8HR PRN PRN Reason: Anxiety Methylprednisolone Sodium Succinate (Methylprednisolone Sod Succi 40 Mg/Ml 1 Ml Vial) 40 mg IV Q6HR [facility] Last Admin: 05/25/24 18:30 Dose: 40 mg Metoprolol Tartrate (Metoprolol Tartrate 25 Mg Tab) 25 mg PO BID [facility] Last Admin: 05/25/24 20:01 Dose: 25 mg Nystatin (Nystatin 100,000 Unit/Gm Powd 15 Gm) 1 applic TOPICAL BID [facility]; Protocol Last Admin: 05/25/24 20:00 Dose: 1 applic Spironolactone (Spironolactone 25 Mg Tab) 25 mg PO DAILY [facility] Last Admin: 05/25/24 08:46 Dose: 25 mg Social history: Has home care. Lives with daughter Mary. Started smoking at the age of 19 smoked less than a pack a day stopped in 2006. No alcohol. Uses a Kiya lift Physical examination: VITAL SIGNS: 98.3, 100, 22, 109 x 84, 96% on 3 L GENERAL: Reclining in bed, breathing better EYES: Pupils equal. Conjunctiva normal. HEENT: External appearance of nose and ears normal, oral cavity grossly normal. Left scalp anteriorly bone defect NECK: JVD not raised; masses not palpable. HEART: First and second heart sounds are normal; no edema. LUNGS: Respiratory rate increased, diminished breath sounds some crackles n. ABDOMEN: Soft, nontender, liver spleen not palpable, no masses palpable. PSYCH: Appears calm, unable to assessl. MUSCULOSKELETAL:No Clubbing/cyanosis;muscles-grossly intact. Evidence of OA NEUROLOGICAL: Contracture of the right upper extremity. Weak in the right lower extremity. Did speak a few words. INVESTIGATIONS, reviewed in the clinical context: May 25: White count 9.4 hemoglobin 13.8 platelets 310 potassium 4 creatinine 0.88 procalcitonin 0.24 TSH 0.549 2D echo: EF 40%. Moderate mitral stenosis May 23: White count 12.1 hemoglobin 14.2 platelets 276 sodium 136 potassium 4 creatinine 0.73 Troponin I 0.015, 0.018, 0.017 proBNP 2330 UA: Leukoesterase large. WBC clumps few. BC more than 182 Influenza type A, type B, RSV, SARS-CoV-2: Not detected EKG tracing personally reviewed by me-sinus tachycardia. Left bundle twin block. PVC. Chest x-ray film personally reviewed by me-cardiomegaly. Possible infiltrate. Possible venous prominence. Assessment and plan: -Probable pneumonia suspect gram-negative organism. Patient has symptoms for about a week.: Improving IV ceftriaxone. -Acute hypoxic respiratory failure secondary to pneumonia and possible CHF Requiring BiPAP on presentation. Improving today down to 3 L Being followed by dress marker -Acute UTI with cystitis with prior recurrent episodes IV ceftriaxone. Chronically incontinent -Acute on chronic congestive heart failure from systolic dysfunction EF 40% IV Lasix twice daily. Aldactone. -Moderate mitral stenosis -Intertriginous candidiasis in the groin fold Add nystatin powder twice daily -Right hemiparesis with contracture of the right upper extremity from a prior ruptured intracranial aneurysm. 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 Patient able to say a few words -Chronic dysarthria does eat a chopped diet. Able to use the left hand -BMI 31.1. Obesity Weight loss measures -Full code with instructions -Medical power of sports attorney: Daughter Mary Doing better. Continue ceftriaxone. IV Solu-Medrol. Cut back to every 8. Nystatin powder added. 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 speech garbled if trying to make a sentence few single words come out ok. History of Any Multi-Drug Resistant Organisms: MRSA Date of last positivie culture/infection: 2013 MDRO Source:: blood Past Surgical History: Adenoidectomy, Cholecystectomy, Hysterectomy, Tonsillectomy Additional Past Surgical History / Comment(s): renal bypass d/t renal aneurysm, brain anuerysm skull surgery-clip/coil in place. Past Anesthesia/Blood Transfusion Reactions: No Reported Reaction Additional Past Anesthesia/Blood Transfusion Reaction / Comment(s): clausterphobia Past Psychological History: No Psychological Hx Reported Smoking Status: Never smoker Past Alcohol Use History: None Reported Past Drug Use History: None Reported
[2024-05-25] MEDS: methylPREDNISolone SOD SUCCI 40 MG/ML 1 ML VIAL IV SCH (22:11)
[2024-05-26 00:02] LABS: Glucose,Whole Blood 137 mg/dL (70-110)
[2024-05-26 05:44] LABS: Glucose,Whole Blood 145 mg/dL (70-110)
[2024-05-26 06:47] LABS: African American GFR (CKD) 61 (>60 ml/min/1.73 sqM); Anion Gap 7 mmol/L; Blood Urea Nitrogen 46 mg/dL (7-17); Calcium 10.1 mg/dL (8.4-10.2); Carbon Dioxide 34 mmol/L (22-30); Chloride 95 mmol/L (98-107); Glucose 143 mg/dL (74-99); Non-African American GFR(CKD) 53 (>60 ml/min/1.73 sqM); Potassium 3.9 mmol/L (3.5-5.1); Sodium 136 mmol/L (137-145)
[2024-05-26 11:35] VITALS: BP 144/77; RESP 15; TEMP 96.2
[2024-05-26 11:50] LABS: Glucose,Whole Blood 172 mg/dL (70-110)
[2024-05-26] MEDS: IPRATROPIUM-ALBUTEROL 3 ML NEB INHALATION SCH (12:37)
[2024-05-26 12:48] VITALS: PULSE 88
--- NOTE | 2024-05-26 13:05 | P.PN ---
Subjective HISTORY OF PRESENT ILLNESS: This is a 84-year-old female with a past medical history significant for CVA, obstructive sleep apnea, and former nicotine dependence. Patient does not follow with a windows phone developer. We have been asked to see the patient in consultation for CHF and V. tach. Patient examined at the bedside in the emergency room. Patient was brought to the hospital for worsening mental status. Patient's family is at the bedside and states she is also been short of breath and coughing a lot at home. She denies any chest pain or pressure. According to ER documentation, the patient took off her oxygen and became hypoxic. Apparently she had an episode of ventricular tachycardia and was started on IV amiodarone. However there are no telemetry tracings available for review of this episode. DIAGNOSTICS: - EKG reveals sinus tachycardia with PVCs. Left bundle branch block. - Chest xray cardiomegaly and mild pulmonary vascular congestion. - Laboratory data: WBC 12.1. Hemoglobin 14.2. Platelet count 276. Sodium 136. Potassium 4.0. BUN 16. Creatinine 0.73. Lactic acid 1.2. Troponin negative x 3. proBNP 2330. - Current home cardiac medications include none. - Most recent echocardiogram obtained in 2018 revealed ejection fraction 55 to 60%, mild LVH, mild TR - Cardiac catheterization history: Unknown 05/26/2024 Patient examined at the bedside. Patient denies chest pain or pressure. Denies SOB. remains on IV lasix. Echo reveals EF 40%, mild mitral and tricuspid regurgitation PHYSICAL EXAM: VITAL SIGNS: Reviewed. GENERAL: Well-developed in no acute distress. HEENT: Head is normocephalic. Pupils are equal, round. Sclerae anicteric. Mucous membranes of the mouth are moist. Neck supple. No JVD or thyromegaly LUNGS: Respirations even and unlabored. Lungs with bilateral rhonchi HEART: Regular rate and rhythm. S1 and S2 heard. EXTREMITIES: Normal range of motion. No clubbing or cyanosis. Peripheral pulse s intact. No lower extremity edema ASSESSMENT: Altered mental status Acute hypoxic respiratory failure Acute heart failure with with reduced EF Sinus tachycardia PVCs Left bundle branch block History of CVA History of obstructive sleep apnea Former nicotine dependence History of CVA with residual expressive aphasia Obesity: BMI 34.8 PLAN: Decrease IV lasix to 40mg IV daily Continue additional cardiac medications Continue telemetry monitoring to assess for arrhythmias Further recommendations pending patient course Nurse practitioner note has been reviewed by physician. Signing provider agrees with the documented findings, assessment, and plan of care documented by DIRECTOR FOOD AND BEVERAGE as a scribe. Objective - Vital Signs Vital signs: Vital Signs Temp 96.2 F L 05/26/24 11:21 Pulse 88 05/26/24 12:48 Resp 15 05/26/24 11:21 BP 144/77 05/26/24 11:21 Pulse Ox 98 05/26/24 11:21 FiO2 40 05/25/24 08:00 Intake & Output 05/25/24 05/26/24 05/26/24 18:59 06:59 18:59 Intake Total 440 540 118 Output Total 600 Balance -160 540 118 Weight 80.3 kg Intake: IV 200 Lactated Ringers 1,000 ml 200 @ 20 mls/hr IV .Q24H [facility] Rx#:[id number] Oral 240 540 118 Output: Urine 600 Other: Voiding Method External Catheter External Catheter External Catheter - Labs CBC & Chem 7: 05/25/24 03:01 05/26/24 05:52 Labs: Abnormal Lab Results - Last 24 Hours (Table) 05/25/24 05/26/24 05/26/24 Range/Units 18:29 00:01 05:41 Sodium (137-145) mmol/L Chloride (98-107) mmol/L Carbon Dioxide (22-30) mmol/L BUN (7-17) mg/dL Glucose (74-99) mg/dL POC Glucose (mg/dL) 163 H 137 H 145 H (70-110) mg/dL 05/26/24 05/26/24 Range/Units 05:52 11:48 Sodium 136 L (137-145) mmol/L Chloride 95 L (98-107) mmol/L Carbon Dioxide 34 H (22-30) mmol/L BUN 46 H (7-17) mg/dL Glucose 143 H (74-99) mg/dL POC Glucose (mg/dL) 172 H (70-110) mg/dL Microbiology - Last 24 Hours (Table) 05/24/24 09:01 Urine Culture - Preliminary Urine,Voided
--- NOTE | 2024-05-26 14:54 | P.PN ---
Subjective Progress Note Date: 05/26/24 Principal diagnosis: Acute hypoxic respiratory failure secondary to acute systolic congestive heart failure This is an 84-year-old female known history of multiple medical problems including history of CVA with right-sided weakness and aphasia, obstructive sleep apnea syndrome, former smoker, patient presented to the ER with 2 days history of increased shortness of breath, upon arrival to the ER, patient was noted to be in congestive heart failure, and apparently she had 1 episode of nonsustained ventricular tachycardia. Patient was placed on amiodarone, seen by cardiology on consultation, and we were also asked to see the patient in consultation as she was noted to be quite short of breath, and she was noted to have almost inspiratory stridor which is according to her daughter this is a chronic problem could be related to her previous history of CVA and possibly v ocal cord paralysis. At any rate I saw the patient in the ER, and after my evaluation, I reviewed her chest x-ray which showed evidence of mild pulmonary edema, patient was noted to have a bit of leukocytosis with WC count of 12.1, electrolytes were normal renal profile is normal, BNP level was noted to be slightly elevated, I evaluated the patient and recommended transfer to ICU, discussed CODE STATUS with the daughter at bedside, but she was unable to make the decision before discussing this with her other sisters. According to the daughter that her mother is prone to develop urinary tract infections quite often, and whenever she develops urinary tract infection, she gets more short of breath more confused, and has been frequently getting antibiotics for recurrent urinary tract infections in the past. Indeed her urinalysis showed pyuria and bacteriuria with leukocyte esterase large, and urine nitrite negative. Echocardiogram done in the ER showed LV dysfunction with ejection fraction of 40%, no evidence of pulmonary hypertension, there was mild mitral and tricuspid regurgitation. Patient will be admitted to the ICU on amiodarone, she received Lasix while in the ER, and after I evaluated the patient I recommended bronchodilators in the form of DuoNeb, and recommended methylprednisolone. I also recommended empiric ceftriaxone for possible pneumonia, procalcitonin level is pending. Patient was seen today on 05/25/2024, remains in the ICU, on BiPAP at 12/5/40%, patient is doing much better today compared to yesterday, remains on diuretics, remains on antibiotics, procalcitonin level is 0.26, BNP level is 2330., Blood cultures are negative, urine culture is in progress. Again the patient is feeling much better today compared to yesterday, she is not a great historian, but she is definitely more comfortable today compared to yesterday. WBC count is 9.4 hemoglobin 13.8 electrolytes are normal renal profile is normal blood sugar is 144. Seen today on 05/26/2024, patient is now off BiPAP, on nasal cannula, does not seem to be in distress. Actually the patient is on 3 L nasal cannula, O2 sats is 98%, continues to steadily improve, remains on diuretics and on antibiotics. Urine culture was poor quality because of polymicrobial specimen no predominant morphotypes noted. Electrolytes were reviewed, bicarb is 34 BUN is 46 creatinine 0.98 patient continues to diurese well with diuretics. At this point, I believe the patient could be considered for discharge if cleared by other consultants. Objective - Vital Signs Vital signs: Vital Signs Temp 96.2 F L 05/26/24 11:21 Pulse 88 05/26/24 12:48 Resp 15 05/26/24 11:21 BP 144/77 05/26/24 11:21 Pulse Ox 98 05/26/24 11:21 FiO2 40 05/25/24 08:00 Intake & Output 05/25/24 05/26/24 05/26/24 18:59 06:59 18:59 Intake Total 440 540 238 Output Total 600 Balance -160 540 238 Weight 80.3 kg Intake: IV 200 Lactated Ringers 1,000 ml 200 @ 20 mls/hr IV .Q24H [facility] Rx#:[id number] Oral 240 540 238 Output: Urine 600 Other: Voiding Method External Catheter External Catheter External Catheter - Exam GENERAL: Revealed 84-year-old female on nasal cannula, off BiPAP. Head: Atraumatic, normocephalic HEENT: . Pupils are equal, round. Sclerae anicteric. Mucous membranes of the mouth are moist. Neck supple. No JVD or thyromegaly LUNGS: Diminished breath sound bilaterally no crackles rhonchi or wheezes HEART: Distant S1-S2, no S3 gallop, no murmur. ABDOMEN: Obese, soft. Nondistended. Nontender. No rebound no guarding. Positive bowel sounds. EXTREMITIES: No clubbing edema or cyanosis NEUROLOGIC patient has expressive aphasia, otherwise unremarkable. She does have poor mental status. Psychiatric: Confused, blunted affect, poor mental status. - Labs CBC & Chem 7: 05/25/24 03:01 05/26/24 05:52 Labs: Abnormal Lab Results - Last 24 Hours (Table) 05/25/24 05/26/24 05/26/24 Range/Units 18:29 00:01 05:41 Sodium (137-145) mmol/L Chloride (98-107) mmol/L Carbon Dioxide (22-30) mmol/L BUN (7-17) mg/dL Glucose (74-99) mg/dL POC Glucose (mg/dL) 163 H 137 H 145 H (70-110) mg/dL 05/26/24 05/26/24 Range/Units 05:52 11:48 Sodium 136 L (137-145) mmol/L Chloride 95 L (98-107) mmol/L Carbon Dioxide 34 H (22-30) mmol/L BUN 46 H (7-17) mg/dL Glucose 143 H (74-99) mg/dL POC Glucose (mg/dL) 172 H (70-110) mg/dL Microbiology - Last 24 Hours (Table) 05/24/24 09:01 Urine Culture - Final Urine,Voided Assessment and Plan Assessment: Impression: Acute hypoxic respiratory failure, most likely secondary to acute systolic congestive heart failure, ejection fraction 40% noted on echocardiogram today. Suspect stridor secondary to vocal cord paralysis from previous CVA, resolved compared to yesterday but the patient is still on BiPAP at this point. Possible urinary tract infection, urine culture is in progress Possible underlying pneumonia as noted on chest x-ray, however since procalcitonin level is not elevated, pneumonia is less likely. Sinus tachycardia with left bundle branch block, no clear-cut evidence of ventricular tachycardia History of CVA with right-sided weakness and expressive aphasia Obesity with BMI of 34.8 Ex-smoker History of obstructive sleep apnea syndrome Recommendation: Continue oxygen and titrate accordingly patient may need home O2 Continue diuretics Discontinue antibiotics. Daily I's and O's and daily weights Consider discharge planning if cleared by other consultants Will continue to follow. Time with Patient: Less than 30
--- NOTE | 2024-05-26 17:47 | P.DS ---
Providers Date of admission: 05/23/24 19:39 Expected date of discharge: 05/26/24 Attending physician: Jose Massey Consults: 05/23/24 19:38 Consult Physician Routine Consulting Provider: Rafael Ortiz Consult Reason/Comments: CHF,VT Do you want consulting provider notified?: Yes 05/24/24 08:22 Consult Physician Routine Consulting Provider: Juan Duncan Consult Reason/Comments: SOB Do you want consulting provider notified?: Yes Primary care physician: Ismael Johnson MD Hospital Course: Chief Complaint: Short of breath This is a pleasant 84-year-old patient who follows with visiting physicians, Dr. Johnson. 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 Has home care every day. Lives with her daughter.Mary. She is able to speak a few words. Does use a lift and able to feed herself with the left hand.. She is incontinent does use a diaper. Patient seen in the ICU this afternoon. Accompanied by her 2 daughters at the bedside. For about a week patient denies any increasing shortness of breath. Fits of coughing. Raspy. Sounds wet. No fever. Admitted is refusing her breathing treatments. No phlegm produced. Currently on the BiPAP setting of 12/5/70%. [facility] is a question about DVT. Was given IV amiodarone and then discontinued. May 25: ICU. Seen by me this morning. Patient been off BiPAP. On 3 L nasal cannula. Had about 50% for breakfast. Nystatin powder has been ordered for the groin. Patient is talking a few words. Appears rather comfortable. Removed out of the ICU. May 26: Medical floor. Doing well. Actually speaking very short sentences. Very keen to go home. Daughter at the bedside. Discussed with daughter about concerned about UTI. . Patient already getting antibiotics for her pneumonia. Tolerating a diet. Urine culture did come back negative. Spoke to nurse Gaines. Pulse ox on room air was 92%. Daughter at the bedside's questions were discussed. Patient will complete Ceftin for 3 more days for the pneumonia. Prednisone taper. DuoNeb 3 times a day. Discussion and discharge planning more than 35 minutes Social history: Has home care. Lives with daughter Mary. Started smoking at the age of 19 smoked less than a pack a day stopped in 2006. No alcohol. Uses a Kiya lift Physical examination: VITAL SIGNS: 96.2, 87, 15, 144 x 77, 92% room air GENERAL: Reclining in bed, comfortable EYES: Pupils equal. Conjunctiva normal. HEENT: External appearance of nose and ears normal, oral cavity grossly normal. Left scalp anteriorly bone defect NECK: JVD not raised; masses not palpable. HEART: First and second heart sounds are normal; no edema. LUNGS: Respiratory rate increased, diminished breath sounds some crackles n. ABDOMEN: Soft, nontender, liver spleen not palpable, no masses palpable. PSYCH: Appears calm, unable to assessl. MUSCULOSKELETAL:No Clubbing/cyanosis;muscles-grossly intact. Evidence of OA NEUROLOGICAL: Contracture of the right upper extremity. Weak in the right lower extremity. Did speak very short sentences. INVESTIGATIONS, reviewed in the clinical context: May 26: Sodium 136 potassium 3.9 creatinine 0.98 May 25: White count 9.4 hemoglobin 13.8 platelets 310 potassium 4 creatinine 0.88 procalcitonin 0.24 TSH 0.549 2D echo: EF 40%. Moderate mitral stenosis May 23: White count 12.1 hemoglobin 14.2 platelets 276 sodium 136 potassium 4 creatinine 0.73 Troponin I 0.015, 0.018, 0.017 proBNP 2330 UA: Leukoesterase large. WBC clumps few. BC more than 182 Influenza type A, type B, RSV, SARS-CoV-2: Not detected EKG tracing personally reviewed by me-sinus tachycardia. Left bundle twin block. PVC. Chest x-ray film personally reviewed by me-cardiomegaly. Possible infiltrate. Possible venous prominence. Assessment and plan: -Probable pneumonia suspect gram-negative organism. Causing hypoxia patient has symptoms for about a week.: Much improved IV ceftriaxone. Discharged on Ceftin 500 twice daily for 3 days -Acute hypoxic respiratory failure secondary to pneumonia and possible CHF: Resolved Requiring BiPAP on presentation. Now down to 92% room air Being followed by utility teller -Acute UTI with cystitis with prior recurrent episodes IV ceftriaxone. Chronically incontinent. Complete course with Ceftin -Acute on chronic congestive heart failure from systolic dysfunction EF 40% IV Lasix twice daily. Aldactone. -Moderate mitral stenosis -Intertriginous candidiasis in the groin fold Add nystatin powder twice daily -Right hemiparesis with contracture of the right upper extremity from a prior ruptured intracranial aneurysm. 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 Patient able to say a few words -Chronic dysarthria does eat a chopped diet. Able to use the left hand -BMI 31.1. 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 speech garbled if trying to make a sentence few single words come out ok. History of Any Multi-Drug Resistant Organisms: MRSA Date of last positivie culture/infection: 2013 MDRO Source:: blood Past Surgical History: Adenoidectomy, Cholecystectomy, Hysterectomy, Tonsillectomy Additional Past Surgical History / Comment(s): renal bypass d/t renal aneurysm, brain anuerysm skull surgery-clip/coil in place. Past Anesthesia/Blood Transfusion Reactions: No Reported Reaction Additional Past Anesthesia/Blood Transfusion Reaction / Comment(s): clausterphobia Past Psychological History: No Psychological Hx Reported Smoking Status: Never smoker Past Alcohol Use History: None Reported Past Drug Use History: None Reported Plan - Discharge Summary Discharge Rx Participant: No New Discharge Prescriptions: New cefuroxime axetiL [Ceftin] 500 mg PO BID #6 tab Spironolactone [Aldactone] 25 mg PO DAILY #30 tab Atorvastatin [Lipitor] 40 mg PO HS #30 tab Metoprolol Tartrate [Lopressor] 25 mg PO BID #60 tab predniSONE 10 mg PO DAILY #30 tab Ipratropium-Albuterol Nebulize [Duoneb 0.5 mg-3 mg/3 ml Soln] 3 ml INHALATION TID #90 each Continue Mupirocin 2% Oint [Bactroban 2% Oint] 1 applic TOPICAL DAILY PRN PRN Reason: Skin Irritation Betamethasone Valerate [Luxiq 0.1%] 1 applic TOPICAL DAILY PRN PRN Reason: Skin Irritation Hydrocortisone Acetate [Vanicream 1% Hc] 1 applic TOPICAL DAILY PRN PRN Reason: Skin Irritation Gabapentin [Neurontin] 300 mg PO HS Ciclopirox Olamine [Loprox 0.77% cream] 1 applic TOPICAL BID PRN PRN Reason: Skin Irritation Cholecalciferol (Vitamin D3) [Vitamin D3 (50 Mcg = 2000 Iu)] 50 mcg PO DAILY Fluconazole [Diflucan] 150 mg PO MO Nystatin [Nystop] 1 applic TOPICAL BID PRN PRN Reason: abdominal folds Discharge Medication List Betamethasone Valerate [Luxiq 0.1%] 1 applic TOPICAL DAILY PRN 09/02/23 [History] Cholecalciferol (Vitamin D3) [Vitamin D3 (50 Mcg = 2000 Iu)] 50 mcg PO DAILY 09/02/23 [History] Ciclopirox Olamine [Loprox 0.77% cream] 1 applic TOPICAL BID PRN 09/02/23 [History] Fluconazole [Diflucan] 150 mg PO MO 09/02/23 [History] Gabapentin [Neurontin] 300 mg PO HS 09/02/23 [History] Hydrocortisone Acetate [Vanicream 1% Hc] 1 applic TOPICAL DAILY PRN 09/02/23 [History] Mupirocin 2% Oint [Bactroban 2% Oint] 1 applic TOPICAL DAILY PRN 09/02/23 [History] Nystatin [Nystop] 1 applic TOPICAL BID PRN 09/02/23 [History] Atorvastatin [Lipitor] 40 mg PO HS #30 tab 05/26/24 [Rx] Ipratropium-Albuterol Nebulize [Duoneb 0.5 mg-3 mg/3 ml Soln] 3 ml INHALATION TID #90 each 05/26/24 [Rx] Metoprolol Tartrate [Lopressor] 25 mg PO BID #60 tab 05/26/24 [Rx] Spironolactone [Aldactone] 25 mg PO DAILY #30 tab 05/26/24 [Rx] cefuroxime axetiL [Ceftin] 500 mg PO BID #6 tab 05/26/24 [Rx] predniSONE 10 mg PO DAILY #30 tab 05/26/24 [Rx] Follow up Appointment(s)/Referral(s): Ismael Johnson MD [Primary Care Provider] - 05/30/24 (Office to call with a time, the day before the appointment.) Patient Instructions/Handouts: Heart Failure (DC) Discharge Disposition: HOME SELF-CARE
[2024-05-27] MEDS ORDERED: FUROSEMIDE 10 MG/ML 4 ML VIAL IV SCH (09:00)
[2024-05-27 16:09] LABS: Glucose,Whole Blood 132 mg/dL (70-110)
[2024-05-27 16:09] LABS: Glucose,Whole Blood 140 mg/dL (70-110)
== END 2024-05-26 15:50 | disposition home or self-care (01) | DRG 291 ==
LOC: EC 16:07 → 3SCARD 19:39 → 2SICU 05-24 09:43 → 3SCARD 05-25 18:23
PROVIDERS: ADMIT Hospitalist; ATTEND Hospitalist
PROC: 5A09357 Assistance with Respiratory Ventilation, Less than 24 Consecutive Hours, Continuous Positive Airway Pressure (ICD-10-PCS; principal; 2024-05-24)
DX: I11.0 Hypertensive heart disease with heart failure (principal); I50.41 Acute combined systolic (congestive) and diastolic (congestive) heart failure; J18.9 Pneumonia, unspecified organism; J96.01 Acute respiratory failure with hypoxia; I47.20 Ventricular tachycardia, unspecified; I69.351 Hemiplegia and hemiparesis following cerebral infarction affecting right dominant side; J44.0 Chronic obstructive pulmonary disease with (acute) lower respiratory infection; E66.9 Obesity, unspecified; I05.0 Rheumatic mitral stenosis; F40.240 Claustrophobia; J38.00 Paralysis of vocal cords and larynx, unspecified; R32 Unspecified urinary incontinence; G47.33 Obstructive sleep apnea (adult) (pediatric); I69.320 Aphasia following cerebral infarction; I44.7 Left bundle-branch block, unspecified; I49.3 Ventricular premature depolarization; N30.90 Cystitis, unspecified without hematuria; B37.2 Candidiasis of skin and nail; E78.5 Hyperlipidemia, unspecified; Z68.34 Body mass index [BMI] 34.0-34.9, adult; Z20.822 Contact with and (suspected) exposure to COVID-19; Z79.899 Other long term (current) drug therapy; Z87.440 Personal history of urinary (tract) infections; Z87.891 Personal history of nicotine dependence; Z74.01 Bed confinement status
CPT/HCPCS: 36415; 71046; 80048; 80053; 81001; 83605; 83735; 83880; 84145; 84443; 84484; 85025; 85027; 85610; 85730; 87086; 87636; 93005; 93306; 94640; 94660; 96365; 96366; 96375; 96376; 99291